=== PATIENT | female | born 1935 | race Caucasian/White ===

== ENCOUNTER → 2023-09-17 08:09 | Outpatient (REF) | payer MEDICARE, BC, SELFPAY ==
[2023-09-17 09:01] LABS: % Basophils 0.6 % (0-2); % Eosinophils 1.1 % (0-6); % Immature Granulocytes 0.3 % (0-0.5); % Lymphocytes 23.4 % (20.5-51.1); % Monocytes 10.2 % (1.7-9.3); % Neutrophils 64.4 % (42.2-75.2); Absolute Basophils 0.1 10^3/uL (0-0.2); Absolute Eosinophils 0.1 10^3/uL (0-0.7); Absolute Lymphocytes 2.5 10^3/uL (1.2-3.4); Absolute Monocytes 1.1 10^3/uL (0.1-0.6); Absolute Neutrophils 6.9 10^3/uL (1.4-6.5); Hematocrit 42.2 % (37.0-47.0); Hemoglobin 14.1 g/dL (12.0-16.0); Mean Corp Hgb Conc. 33.4 g/dL (33.0-37.0); Mean Corpuscular Hgb 33.3 pg (27.0-31.0); Mean Corpuscular Volume 99.5 fL (81.0-99.0); Mean Platelet Volume 10.5 fL (7.4-10.4); Nucleated Red Blood Cells % 0 %; Platelet Count 312 10^3/uL (130-400); Red Blood Cell Count 4.24 10^6/uL (4.20-5.40); Red Cell Dist. Width 13.1 % (11.5-14.5); White Blood Cell Count 10.7 10^3/uL (4.8-10.8)
[2023-09-17 09:20] LABS: NT-proBNP 1940 pg/ml
[2023-09-17 09:27] LABS: ALT (SGPT) 30 U/L (0-35); AST (SGOT) 40 U/L (14-36); Albumin 3.7 g/dl (3.5-5.0); Alkaline Phosphatase 48 U/L (38-126); Blood Urea Nitrogen 25 mg/dl (7-17); Calcium 9.4 mg/dl (8.4-10.2); Carbon Dioxide 33 mmol/L (22-30); Chloride 97 mmol/L (98-107); Glucose 93 mg/dl (70-99); HDL Cholesterol 50 mg/dl; LDL Cholesterol, Calculated 68 mg/dl; Potassium 4.1 mmol/L (3.5-5.1); Sodium 137 mmol/L (135-145); Total Bilirubin 0.8 mg/dl (0.2-1.3); Total Cholesterol 179 mg/dl (50-199); Total Protein 6.3 g/dl (6.3-8.2); Triglyceride 306 mg/dl (10-149); Very Low Density Lipoprotein 61 mg/dl (0-30); eGFR > 60.00
== END ==
LOC: REG 08:09
PROVIDERS: ATTENDING PHYSICIAN Internal Medicine Cardiovascular Disease; FAMILY PHYSICIAN Family Medicine
DX: I50.32 Chronic diastolic (congestive) heart failure (principal); E78.5 Hyperlipidemia, unspecified; I48.0 Paroxysmal atrial fibrillation; I10 Essential (primary) hypertension; E55.9 Vitamin D deficiency, unspecified; K51.90 Ulcerative colitis, unspecified, without complications; Z95.2 Presence of prosthetic heart valve
CPT/HCPCS: 36415; 80053; 80061; 83880; 85025

== ENCOUNTER → 2023-09-22 09:30 | Outpatient (REF) | payer MEDICARE, BC, SELFPAY ==
[2023-09-22 10:55] LABS: ALT (SGPT) 22 U/L (0-35); AST (SGOT) 33 U/L (14-36); Albumin 3.4 g/dl (3.5-5.0); Alkaline Phosphatase 42 U/L (38-126); Blood Urea Nitrogen 19 mg/dl (7-17); Calcium 9.4 mg/dl (8.4-10.2); Carbon Dioxide 34 mmol/L (22-30); Chloride 98 mmol/L (98-107); Glucose 76 mg/dl (70-99); HDL Cholesterol 53 mg/dl; LDL Cholesterol, Calculated 60 mg/dl; NT-proBNP 2140 pg/ml; Potassium 4.4 mmol/L (3.5-5.1); Sodium 139 mmol/L (135-145); Total Bilirubin 0.6 mg/dl (0.2-1.3); Total Cholesterol 169 mg/dl (50-199); Total Protein 5.8 g/dl (6.3-8.2); Triglyceride 280 mg/dl (10-149); Very Low Density Lipoprotein 56 mg/dl (0-30); eGFR 54.19
== END ==
LOC: OLABSOL 09:30
PROVIDERS: ATTENDING PHYSICIAN Internal Medicine Cardiovascular Disease
DX: I10 Essential (primary) hypertension (principal); E78.5 Hyperlipidemia, unspecified; I48.0 Paroxysmal atrial fibrillation
CPT/HCPCS: 36415; 80053; 80061; 83880

== ENCOUNTER → 2023-10-15 10:26 | Outpatient (REF) | payer MEDICARE, BC, SELFPAY ==
[2023-10-15 12:27] LABS: Blood Urea Nitrogen 22 mg/dl (7-17); Calcium 9.6 mg/dl (8.4-10.2); Carbon Dioxide 33 mmol/L (22-30); Chloride 99 mmol/L (98-107); Glucose 94 mg/dl (70-99); Potassium 5.3 mmol/L (3.5-5.1); Sodium 138 mmol/L (135-145); eGFR 54.19
[2023-10-15 12:55] LABS: NT-proBNP 2120 pg/ml
== END ==
LOC: OLABSOL 10:26
PROVIDERS: ATTENDING PHYSICIAN Internal Medicine Cardiovascular Disease
DX: I50.32 Chronic diastolic (congestive) heart failure (principal)
CPT/HCPCS: 36415; 80048; 83880

== ENCOUNTER 2023-10-30 12:50 | Emergency (ER) | payer MEDICARE, BC, SELFPAY ==
[2023-10-30 13:02] VITALS: BP 109/61
[2023-10-30 13:21] VITALS: BP 136/58
[2023-10-30 13:23] VITALS: BMI 28.1
[2023-10-30 13:53] LABS: % Basophils 0.4 % (0-2); % Eosinophils 0.7 % (0-6); % Immature Granulocytes 0.4 % (0-0.5); % Lymphocytes 11.5 % (20.5-51.1); % Monocytes 9.9 % (1.7-9.3); % Neutrophils 77.1 % (42.2-75.2); Absolute Basophils 0.1 10^3/uL (0-0.2); Absolute Eosinophils 0.1 10^3/uL (0-0.7); Absolute Immature Granulocytes 0.1 10^3/uL (0-0.05); Absolute Lymphocytes 1.6 10^3/uL (1.2-3.4); Absolute Monocytes 1.3 10^3/uL (0.1-0.6); Absolute Neutrophils 10.4 10^3/uL (1.4-6.5); Hematocrit 41.2 % (37.0-47.0); Hemoglobin 13.8 g/dL (12.0-16.0); Mean Corp Hgb Conc. 33.5 g/dL (33.0-37.0); Mean Corpuscular Hgb 33.3 pg (27.0-31.0); Mean Corpuscular Volume 99.3 fL (81.0-99.0); Mean Platelet Volume 10.1 fL (7.4-10.4); Nucleated Red Blood Cells % 0 %; Platelet Count 280 10^3/uL (130-400); Red Blood Cell Count 4.15 10^6/uL (4.20-5.40); Red Cell Dist. Width 12.7 % (11.5-14.5); White Blood Cell Count 13.5 10^3/uL (4.8-10.8)
[2023-10-30 14:00] VITALS: BP 117/64
[2023-10-30 14:06] LABS: ALT (SGPT) 20 U/L (0-35); AST (SGOT) 35 U/L (14-36); Albumin 3.7 g/dl (3.5-5.0); Alkaline Phosphatase 46 U/L (38-126); Blood Urea Nitrogen 24 mg/dl (7-17); Calcium 9.2 mg/dl (8.4-10.2); Carbon Dioxide 34 mmol/L (22-30); Chloride 95 mmol/L (98-107); Estimated Creatinine Clearance 25 ml/min; Glucose 134 mg/dl (70-99); Potassium 3.5 mmol/L (3.5-5.1); Sodium 137 mmol/L (135-145); Total Bilirubin 0.4 mg/dl (0.2-1.3); Total Protein 6.2 g/dl (6.3-8.2); eGFR 54.19
--- NOTE | 2023-10-30 14:10 | ED.GENMED ---
Addendum entered and electronically signed by Pacheco Ramsay PA-C 11/03/23 07:22:
Urine culture greater than 100,000 colony-forming units of E. coli. The results for this urine culture were faxed to the facility for their review
Original Note:
History of Present Illness
General
Chief Complaint: Weakness
Source: patient and family
Exam Limitations: none
Time Seen by Provider: 10/30/23 13:22
Nursing documentation reviewed up to this point in time: agreed with
Travel History
Have you had any contact with someone who has COVID-19?: No
Do you have any symptoms of coronavirus? Fever > 100 degrees, chills, cough, shortness of breath, sore throat, loss of taste or smell, muscle aches, or headache?: No
History of Present Illness
History of Present Illness:
88-year-old female presents with fatigue with heaviness in her head started this morning, when she woke up she is incontinent of urine at times, and a diaper at times, no fevers no nausea or vomiting, no chest pain does have a history of congestive
heart failure was admitted about a year ago in exacerbation she has been on diuretic her dose was recently increased a few weeks ago denies any dysuria or frequency, is globally weak, moving all extremities pleasant cooperative oriented x 3
Past History
Past History
ED Past Medical History: CAD, CHF, HTN, Hypercholesterolemia, Valvular disease and Other
ED Past Surgical History: Appendectomy, Cholecystectomy and Other
Social History
Tobacco: Non-smoker
Alcohol: None
Drug: None
Personal:
Living: penitentiary
Employment: Retired
Family History
Family History: Other
Review of Systems
Review of Systems
All Other Systems: Not applicable
Constitutional: Reports fatigue; Denies fever
EENT: Reports no symptoms
Respiratory: Reports no symptoms
Cardiac: Reports no symptoms
ABD/GI: Reports no symptoms
: Reports no symptoms
Musculoskeletal: Reports no symptoms
Neurological: Reports headache and weakness; Denies dizzy
Phy Exam
Physical Exam
Physical Exam:
Physical Exam
General: Pleasant elderly female
Neck: No jaundice no tongue bite
Heart: Regular
Lungs: No crackles
Abdomen: Soft nontender
Neuro: alert and oriented. Moves all extremities globally weak
Skin: no rash
Psychiatric: cooperative
Extremities: Lower extremity edema
Course
Orders/Labs/Results
Orders:
Orders
10/30/23 13:43
Complete Blood Count/With Diff Urgent
Comprehensive Metabolic Panel Urgent
NT-proBNP Urgent
10/30/23 13:47
Electrocardiogram (*1) Urgent
Reason for Study: Vertigo / Dizzy
EKG- Treatment ONCE
10/30/23 13:48
CT Head W/o Iv Contrast Urgent
Comment:
Reason For Exam: weakness headache
CR Chest - 2 Views Urgent
Comment:
Reason For Exam: weakness
10/30/23 14:14
COVID-19 Antigen Urgent
Source: Nasal Swab
10/30/23 14:15
Influenza A+B Rapid Molecular Urgent
KARINA Source: Nasal Swab
Specimen Description:
10/30/23 14:26
Straight cath- Treatment ONCE
10/30/23 14:43
Urinalysis Reflex To Culture Urgent
Date Specimen was Collected: 10/30/23
Time Specimen was Collected: 14:42
Urine Microscopic Reflex Cult Urgent
Urine Culture Urgent
KARINA Source: U
Specimen Description:
Date Specimen was Collected: 10/30/23
Time Specimen was Collected: 14:42
10/30/23 15:00
0.9% Sodium Chloride 500 ml [Nss] 500 ml IV BOLUS
Abnormal Lab Results
10/30/23 10/30/23
13:43 14:43
WBC 13.5 H 10^3/uL
(4.8-10.8)
RBC 4.15 L 10^6/uL
(4.20-5.40)
MCV 99.3 H fL
(81.0-99.0)
MCH 33.3 H pg
(27.0-31.0)
Abs Immat Gran (auto) 0.1 H 10^3/uL
(0-0.05)
Absolute Neuts (auto) 10.4 H 10^3/uL
(1.4-6.5)
Absolute Monos (auto) 1.3 H 10^3/uL
(0.1-0.6)
Neutrophils % 77.1 H %
(42.2-75.2)
Lymphocytes % 11.5 L %
(20.5-51.1)
Monocytes % 9.9 H %
(1.7-9.3)
Chloride 95 L mmol/L
(98-107)
Carbon Dioxide 34 H mmol/L
(22-30)
BUN 24 H mg/dl
(7-17)
Glucose 134 H mg/dl
(70-99)
Total Protein 6.2 L g/dl
(6.3-8.2)
Leukocyte Esterase Rfl 1+ A
(Negative)
10/30/23 13:43
10/30/23 13:43
Vital Signs
Initial and Last Documented VS:
Initial Vital Signs
Temp Pulse Resp BP Pulse Ox
97.7 F 75 18 109/61 96
10/30/23 13:02 10/30/23 13:02 10/30/23 13:02 10/30/23 13:02 10/30/23 13:02
Last Documented Vital Signs
Temp Pulse Resp BP Pulse Ox
97.7 F 75 16 117/64 92
10/30/23 13:02 10/30/23 14:16 10/30/23 14:16 10/30/23 14:00 10/30/23 14:30
*Critical Care Note
Total Time (30-74mins, 75-104mins- exclusive of procedures): Not Applicable
Update Note
Update Note:
Update labs are noted does have a white count although she is on chronic steroids, BUN up a bit, diuretic has been increased recently, urinalysis results and CAT scan grossly negative to my eye proBNP at or lower than baseline, awaiting chest x-ray,
consideration for starting some hydration
Update patient looks well reviewed with family members
ED Attending Note
-
Portions of this chart may have been created with voice recognition software.� Occasional wrong word or��sound alike� substitutions may have occurred due to the inherent limitations of voice recognition software.
Discharge Plan
Departure
Patient Disposition: Home (Routine Discharge)
Date of Disposition: 10/30/23
Time of Disposition: 15:13
Patient with high blood pressure during this ER visit?: No
Condition: Good
Discharge Problem:
Weakness
Instructions: Generalized Weakness (DC)
Prescriptions:
No Action
folic acid 1 MG tablet
1 mg PO DAILY
atorvastatin 40 MG tablet
40 mg PO HS
prednisone 5 MG tablet
5 mg PO DAILY@1600
duloxetine 60 MG capsule,delayed release(DR/EC)
60 mg PO DAILY
aspirin 81 mg Tablet,Delayed Release (Dr/Ec)
81 mg PO DAILY@1600
esomeprazole magnesium [Nexium] 40 mg Capsule,Delayed Release(Dr/Ec)
40 mg PO DAILY
senna 8.6 mg capsule
8.6 mg PO HS Qty: 10 0RF
torsemide 20 mg Tablet
70 mg PO DAILY
metoprolol succinate 50 mg Tablet Extended Release 24 Hr
50 mg PO DAILY
hydrocodone-acetaminophen 5-325 mg tablet
1 tab PO BID
hydrocodone-acetaminophen 5-325 mg Tablet
1 tab PO DAILY@1600 PRN (Reason: severe pain)
PreserVision AREDS-2 250-90-40-1 mg Capsule
1 cap PO BID
Movantik 12.5 mg Tablet
12.5 mg PO DAILY
Metamucil 28.3 % powder
1 dose PO HS
Patient Comments:
10/30/2023, one scoopful.
sulfasalazine 500 MG tablet
500 mg PO BID
Referrals:
Santana Crain DO [Family Provider] -
Alexia Medina MD [Active] - Next open appointment
Interventions
Interventions:
*Risk Screen - Suicide Last Done: 10/30/23 13:23
*General Assessment Last Done: 10/30/23 13:02
*Neglect/Abuse Screening Last Done: 10/30/23 13:23
ED- Fall Risk Assessment Last Done: 10/30/23 13:24
*ED COVID-19 Vaccine History Last Done: 10/30/23 13:02
ED- Cardiac Assessment Last Done: 10/30/23 13:32
ED- Neurological Assessment Last Done: 10/30/23 13:32
ED- Pulmonary Assessment Last Done: 10/30/23 13:32
[2023-10-30 14:26] LABS: NT-proBNP 1860 pg/ml
[2023-10-30 14:53] LABS: Urine Albumin Negative (Neg - Trace); Urine Bilirubin Negative (Negative); Urine Character Clear (Clear); Urine Color Yellow; Urine Glucose Negative (Negative); Urine Ketone Negative (Negative); Urine Leukocyte 1+ (Negative); Urine Nitrite Negative (Negative); Urine Occult Blood Negative (Negative); Urine Urobilinogen Negative (Neg - 1+)
[2023-10-30 15:08] VITALS: BP 107/76
[2023-10-30] MEDS: NSS 500 IV (15:13)
[2023-10-30 15:37] LABS: Urine Bacteria Few (Negative); Urine Squamous Cell 0-2 /LPF (Few)
[2023-10-30 15:38] LABS: COVID-19 Antigen Negative (Negative); Urine Red Blood Cell 0-2 /HPF (0-2)
[2023-10-30 16:00] VITALS: BP 113/70
[2023-10-30] MEDS: KEFLEX 500 MG PO (16:05)
== END 2023-10-30 17:08 | disposition home or self-care (01) ==
LOC: EMR 12:50
PROVIDERS: EMERGENCY PHYSICIAN Emergency Medicine; FAMILY PHYSICIAN Family Medicine
DX: R53.1 Weakness (principal)
CPT/HCPCS: 99285; 96360; 70450; 71046; 80053; 81003; 81015; 83880; 85025; 87071; 87086; 87186; 87502; 87811; 93005

== ENCOUNTER → 2023-11-03 11:02 | Outpatient (REF) | payer MEDICARE, BC, SELFPAY ==
[2023-11-03 11:55] LABS: Blood Urea Nitrogen 17 mg/dl (7-17); Calcium 8.9 mg/dl (8.4-10.2); Carbon Dioxide 33 mmol/L (22-30); Chloride 101 mmol/L (98-107); Glucose 85 mg/dl (70-99); Potassium 3.9 mmol/L (3.5-5.1); Sodium 137 mmol/L (135-145); eGFR > 60.00
[2023-11-03 12:00] LABS: NT-proBNP 2500 pg/ml
== END ==
LOC: OLABSOL 11:02
PROVIDERS: ATTENDING PHYSICIAN Internal Medicine Cardiovascular Disease
DX: I50.32 Chronic diastolic (congestive) heart failure (principal); I10 Essential (primary) hypertension
CPT/HCPCS: 36415; 80048; 83880

== ENCOUNTER 2023-11-23 23:42 | Inpatient (IN) | payer MEDICARE, BC, SELFPAY ==
[2023-11-23 21:17] VITALS: BP 138/78
[2023-11-23 21:35] LABS: % Basophils 0.5 % (0-2); % Eosinophils 2.2 % (0-6); % Immature Granulocytes 0.2 % (0-0.5); % Lymphocytes 21.3 % (20.5-51.1); % Monocytes 10.9 % (1.7-9.3); % Neutrophils 64.9 % (42.2-75.2); Absolute Basophils 0.1 10^3/uL (0-0.2); Absolute Eosinophils 0.2 10^3/uL (0-0.7); Absolute Lymphocytes 2.2 10^3/uL (1.2-3.4); Absolute Monocytes 1.1 10^3/uL (0.1-0.6); Absolute Neutrophils 6.6 10^3/uL (1.4-6.5); Hematocrit 38.4 % (37.0-47.0); Hemoglobin 13.4 g/dL (12.0-16.0); Mean Corp Hgb Conc. 34.9 g/dL (33.0-37.0); Mean Corpuscular Volume 94.6 fL (81.0-99.0); Mean Platelet Volume 9.7 fL (7.4-10.4); Nucleated Red Blood Cells % 0 %; Platelet Count 341 10^3/uL (130-400); Red Blood Cell Count 4.06 10^6/uL (4.20-5.40); Red Cell Dist. Width 12.7 % (11.5-14.5); White Blood Cell Count 10.1 10^3/uL (4.8-10.8)
[2023-11-23 21:58] LABS: ALT (SGPT) 50 U/L (0-35); AST (SGOT) 54 U/L (14-36); Albumin 4.2 g/dl (3.5-5.0); Alkaline Phosphatase 77 U/L (38-126); Blood Urea Nitrogen 29 mg/dl (7-17); Calcium 10.6 mg/dl (8.4-10.2); Carbon Dioxide 30 mmol/L (22-30); Chloride 95 mmol/L (98-107); Glucose 131 mg/dl (70-99); Potassium 4.2 mmol/L (3.5-5.1); Sodium 135 mmol/L (135-145); Total Bilirubin 0.5 mg/dl (0.2-1.3); Total Protein 6.8 g/dl (6.3-8.2); eGFR 39.55
[2023-11-23 22:02] LABS: NT-proBNP 8050 pg/ml; Troponin I 0.052 ng/ml
--- NOTE | 2023-11-23 22:36 | ED.GENMED ---
History of Present Illness
General
Chief Complaint: Breathing Problem
Source: family
Time Seen by Provider: 11/23/23 22:16
Travel History
Have you had any contact with someone who has COVID-19?: No
Do you have any symptoms of coronavirus? Fever > 100 degrees, chills, cough, shortness of breath, sore throat, loss of taste or smell, muscle aches, or headache?: Yes
Symptoms:: shortness of breath
History of Present Illness
History of Present Illness:
Increased shortness of breath over the last 2 to 3 days. Torsemide dose has been increased. Some weight gain per family. Patient has no other specific complaints. Was hypoxic at the facility this evening.
Past History
Past History
ED Past Medical History: CAD, CHF, HTN, Hypercholesterolemia, Valvular disease and Other
ED Past Surgical History: Appendectomy, Cholecystectomy and Other
Social History
Tobacco: Non-smoker
Alcohol: None
Drug: None
Personal:
Living: skilled nursing
Employment: Retired
Family History
Family History: Other
Review of Systems
Review of Systems
All Other Systems: Not applicable
Constitutional: Reports weight gain; Denies fever
Respiratory: Reports trouble breathing
Cardiac: Denies chest pain or syncope
Phy Exam
Physical Exam
Physical Exam:
GENERAL: Alert and oriented in no apparent distress. Somewhat clear small leg breathing at times. Will get hypoxic down to the mid 80s
EYE: Orbits normal.
NECK: Supple, no significant adenopathy.
ENT: Pharynx without erythema
CARDIAC: Irregular irregular. Tachycardic. At times harsh midsystolic murmur
LUNGS: Slight bariatric coordinator small breathing at times. Some crackles in the bases
ABDOMEN: Soft, without focal tenderness or distention
NEUROLOGICAL: Alert and oriented , grossly non-focal
SKIN: Warm and dry, no rash or lesion, no discoloration, skin intact.
MUSCULOSKELETAL: Moderate bilateral lower extremity edema
PSYCH: Normal and appropriate interaction.
Scores
Heart Failure Risk
Heart Failure Risk Score: Yes
History of Stroke or TIA: No
History of intubation for respiratory distress: No
Heart rate on ED arrival >/= 110: Yes
SaO2 <90% on arrival on room air: Yes
HR >/=110 during 3min walk test (or too ill to perform test): Yes
ECG has acute ischemic changes: No
Urea >/=12mmol/L (BUN 33.6mg/dL): No
Serum CO2>/=35mmol/L: No
Troponin I or T elevated to [place] Level (0.4mg/dL): No
NT-proBNP >/=5,000ng/L (5,000pg/ml): Yes
HF Risk Score: 4
Admission Status: HIGH RISK 26.1% Consider SNF treatment or admission to hospital
Course
Orders/Labs/Results
Orders:
Orders
11/23/23 21:21
Electrocardiogram (*1) Urgent
Reason for Study: Other
Other Reason for Exam: Respiratory Distress
Cardiac Monitoring- Treatment ONCE
EKG- Treatment ONCE
IV Insert/Care/Rem.- Treatment PRN
CR Chest - 2 Views Urgent
Comment:
Reason For Exam: respiratory distress
11/23/23 21:28
Complete Blood Count/With Diff Urgent
Comprehensive Metabolic Panel Urgent
11/23/23 21:29
NT-proBNP Urgent
Troponin I Urgent
11/23/23 22:32
Furosemide [Lasix] 40 mg IV NOW STA
11/23/23 22:55
Admit/Transfer Patient As Directed
Co-Sign Provider:
Level of Care: Inpatient admission
Assign to:: Telemetry
Physician / Group: Georgi
Diagnosis: CHF
Reason for Telemetry: Arrhythmia
Date to Stop Telemetry: 11/26/23
Time to Stop Telemetry: 11:00
Reason for Hospitalization: IV diuretic
Expected length of stay greater than two midnights?: Yes
ELOS- Estimated Length of Stay in days: 3
I certify the patient meets the requirements for IP care: Yes
11/23/23 23:07
Code Status As Directed
Resuscitation Status: Do not resuscitate
Reached after discussion with pt or family/Healthcare POA: Yes
11/23/23 23:08
DNR Bracelet Application ONCE
11/24/23 01:53
Heparin 5,000 units SC Q8
11/24/23 01:53
Echo 2D MMode Color/Doppler Routine
Reason for Study: heart failure
CARDIOLOGY CONSULT Routine
Consulting Provider: Santana Medina
Was physician already notified: No
Reason for consult: CHF, A-fib
Consult Notification Routine
Specialty to Notify: Cardiology
HF DIETARY CONSULT Routine
HF EDUCATOR CONSULT Routine
Comment:
Activity As Directed
Activity Level: Out of Bed-Early Mobility
Bladder Scan As Directed
Follow Bladder Retention/Intermittent Cath Algorithm?: Yes
PRN if no void in __ hours: 6
Frequency: Per Retention Algorithm
If Bladder Scan Result >: 400
then:: Straight cath
Intake/ Output As Directed
Frequency: Per unit guidelines
Patient Education As Directed
Type: CHF folder
Comment: give on admission. Document in Interdisciplinary Education record
Sleep Apnea Assessment by RN As Directed
Comment:
Physician Instructions:
Straight Cath As Directed
Frequency: Per Retention Algorithm
Additional Instructions: straight cath as needed per acute urinary retention algorithm for 24 hrs
Additional Instructions: for bladder scan greater than 400 mL
Vital Signs As Directed
Frequency: Other
Additional Instructions:: Q12 or per unit guidelines if more frequent.
Weight As Directed
Frequency: Daily
Type of Scale: Standing Scale
Comment: Daily morning weight. If unable to stand, use balanced bed scale.
Weight As Directed
Frequency: Once
Type of Scale: Standing Scale
Comment: Upon Admission. If unable to stand, use balanced bed scale.
O2 Therapy [RESP] Routine
Titrate/Wean O2 to maintain O2 sat greater than (%): 90
Pulse Ox/cont/shift [RESP] Routine
Quantity: 1
Special Instructions: Daily pulse oximetry at rest. If greater than 92% at rest also obtain pulse oximetry
while ambulating as tolerated.
Ot Eval And Treat Routine
Pt Eval And Treat Routine
Activity Level: Out of Bed-Early Mobility
DX Deep Vein Thrombosis Video Routine
11/24/23 03:30
Troponin I Q6H
Comment: at admission & every 6 hours x 2 (3 total), ECG to be done with each level
11/24/23 06:00
Basic Metabolic Panel IN AM
Cardiovascular Evaluation IN AM
Complete Blood Count/No Diff IN AM
Magnesium IN AM
11/24/23 08:00
Duloxetine Delayed Release [Cymbalta Delayed Release] 60 mg PO DAILY
FOLic ACID [Folvite] 1 mg PO DAILY
Furosemide [Lasix] 60 mg IV BID AT 0800,1600
Hydrocodone 5/APAP 325 [[place] 5/325] 1 tablet PO BID
Metoprolol Xl [Toprol Xl] 50 mg PO DAILY
Sulfasalazine [Azulfidine] 500 mg PO BID
Vit C/Vit E/Lutein/Min/[place]-3 [Ocuvite Softgel] 1 cap PO BID
esomeprazole magnesium [Nexium] 40 mg PO DAILY
naloxegol [Movantik] 12.5 mg PO DAILY
11/24/23 09:30
Troponin I Q6H
Comment: at admission & every 6 hours x 2 (3 total), ECG to be done with each level
11/24/23 16:00
Aspirin Low Dose EC [Aspir Low (Enteric Coated)] 81 mg PO DAILY@1600
Prednisone [Deltasone] 5 mg PO DAILY@1600
11/24/23 22:00
Atorvastatin [Lipitor] 40 mg PO HS
Metamucil 1 dose PO HS
Sennosides [Senokot] 8.6 mg PO HS
11/25/23 06:00
Basic Metabolic Panel IN AM
11/26/23 06:00
Basic Metabolic Panel IN AM
11/26/23 11:00
DC Protocol for Telemetry ONCE
Abnormal Lab Results
11/23/23 11/23/23
21:28 21:29
RBC 4.06 L 10^6/uL
(4.20-5.40)
MCH 33.0 H pg
(27.0-31.0)
Absolute Neuts (auto) 6.6 H 10^3/uL
(1.4-6.5)
Absolute Monos (auto) 1.1 H 10^3/uL
(0.1-0.6)
Monocytes % 10.9 H %
(1.7-9.3)
Chloride 95 L mmol/L
(98-107)
BUN 29 H mg/dl
(7-17)
Creatinine 1.3 H mg/dL
(0.6-1.0)
Glucose 131 H mg/dl
(70-99)
Calcium 10.6 H mg/dl
(8.4-10.2)
AST 54 H U/L
(14-36)
ALT 50 H U/L
(0-35)
Troponin I 0.052 H* ng/ml
11/23/23 21:28
11/23/23 21:28
Vital Signs
Initial and Last Documented VS:
Initial Vital Signs
Temp Pulse Resp BP Pulse Ox
98.2 F 116 28 138/78 99
11/23/23 21:17 11/23/23 21:17 11/23/23 21:17 11/23/23 21:17 11/23/23 21:17
Last Documented Vital Signs
Temp Pulse Resp BP Pulse Ox
98.2 F 109 22 112/79 93
11/23/23 21:17 11/24/23 01:00 11/24/23 01:00 11/24/23 01:00 11/24/23 02:08
*EKG
Interpreted by ED Provider?: Yes
Interpretation: abnormal
Comparison EKG: changes noted
Heart Rate: 105
Rate: tachycardiac
Rhythm: a-fib
[place]: normal axis
Interval: normal interval
QRS Pattern: right bundle branch block
Ischemia: non-specific ST changes
*Assisted Living Home Director Interpretation
Rate: tachycardiac
Interpretation: abnormal
Heart Rate: 104
Rhythm: a-fib
*Critical Care Note
Total Time (30-74mins, 75-104mins- exclusive of procedures): Not Applicable
Data Reviewed
Review of Other/Old Records Reveals: Labs, Records, Radiology Studies, Testing and Discharge Summary
Update Note
Update Note:
Progressive shortness of breath, elevated proBNP above baseline. 3 kg weight gain in the last month. Increased edema. All consistent with some mild CHF complications of atrial fibrillation with mild RVR. Heart rate is in the very low 100s. For
now we will not add rate control although if heart rate elevates consistently may need to start Cardizem.
ED Attending Note
-
Portions of this chart may have been created with voice recognition software.� Occasional wrong word or��sound alike� substitutions may have occurred due to the inherent limitations of voice recognition software.
Discharge Plan
Departure
Patient Disposition: Admit
Date of Disposition: 11/23/23
Time of Disposition: 22:39
Presentation/result/management discussed w/ accepting MD/DO: Hospitalist
Discharge Problem:
CHF, Atrial fibrillation/mild RVR, Renal insufficiency
Interventions
Interventions:
*Risk Screen - Suicide Last Done: 11/24/23 01:45
*General Assessment Last Done: 11/23/23 21:17
*Neglect/Abuse Screening Last Done: 11/23/23 23:07
ED- Fall Risk Assessment Last Done: 11/23/23 22:47
*ED COVID-19 Vaccine History Last Done: 11/24/23 01:45
*Nursing Disposition Last Done: 11/24/23 01:29
ED- Cardiac Assessment Last Done: 11/23/23 22:47
ED- Pulmonary Assessment Last Done: 11/23/23 22:47
Discharge Date and Time
Discharge Date/Time: 11/24/23 01:29
[2023-11-23] MEDS: LASIX 40 MG IV (22:56)
[2023-11-23 23:00] VITALS: BP 117/78
--- NOTE | 2023-11-23 23:14 | HPS.HSE ---
Family Physician
-
Family Physician: Santana Crain
Chief Complaint
-
Shortness of Breath
History of Present Illness
Patient is an 88 y/o female past medical history of CAD, CHF, A-Fib and UC who presents with increase shortness of breath. Additional history is obtained from family at the bedside. On Wednesday patient's daughter noted that the patient appeared more
short of breath than usual. Patient is usually maintained on torsemide 60mg which was increased to 70mg for the past two days. Despite the increase patient continued with shortness of breath and was noted to be hypoxic at the assisted living
facility prompting her to be brought to the emergency department via EMS. Family reports some recent weight gain.
Medical History
Past Medical History
Past Medical History: Reports Other
Additional Past Medical History:
Coronary Artery Disease s/p CABG
Chronic HFpEF
Paroxysmal Atrial Fibrillation
Essential Hypertension
Hyperlipidemia
Aortic Stenosis s/p Bioprosthetic Aortic Valve Replacement
Osteoporosis
Ulcerative Colitis
Spinal Stenosis
Hx PE in 2017, provoked following AVR
Past Surgical History: Reports Other
Additional Past Surgical History:
Coronary Artery Bypass Graft
Bioprosthetic Aortic Valve Replacement
Appendectomy
Cholecystectomy
Colon Resection
Social History
Tobacco: Non-smoker
Alcohol: None
Living: Assisted Living
Family History
Family History: Not pertinent
Allergies / Home Medications
Allergies reflects when Allergies were last updated in [employer].
Home Medications with original date entered in [employer]
Allergy/Medication List:
Allergies
Allergy/AdvReac Type Severity Reaction Status Date / Time
adhesive tape Allergy Unknown Verified 11/23/23 21:16
Home Medications
folic acid 1 mg tablet 1 mg PO DAILY Supplement 11/26/16
atorvastatin 40 mg tablet 40 mg PO HS High cholesterol 12/09/16
duloxetine 60 mg capsule,delayed release 60 mg PO DAILY Mental Health/Anxiety 12/09/16
prednisone 5 mg tablet 5 mg PO DAILY@1600 inflammation 12/09/16
aspirin 81 mg tablet,delayed release 81 mg PO DAILY@1600 Blood clot prevention/tx 06/22/22
esomeprazole magnesium 40 mg capsule,delayed release (Nexium) 40 mg PO DAILY Gastrointestinal issue 06/22/22
sennosides 8.6 mg capsule (senna) 8.6 mg PO HS constipation #10 caps 06/25/22
Metamucil 1 dose PO HS 10/30/23
hydrocodone 5 mg-acetaminophen 325 mg tablet 1 tab PO BID 10/30/23
hydrocodone 5 mg-acetaminophen 325 mg tablet 1 tab PO DAILY@1600 PRN severe pain 10/30/23
metoprolol succinate 50 mg tablet,extended release 24 hr 50 mg PO DAILY 10/30/23
naloxegol 12.5 mg tablet (Movantik) 12.5 mg PO DAILY 10/30/23
sulfasalazine 500 mg tablet 500 mg PO BID Gastrointestinal issue 10/30/23
torsemide 20 mg tablet 70 mg PO DAILY 10/30/23
vit C 250 mg-vit E 90 mg-zinc 40 mg-copper 1 [id number] capsule (PreserVision AREDS-2) 1 cap PO BID 10/30/23
Review of Systems
-
A 12 point ROS was completed and negative except as noted: Yes
Constitutional: Denies Fever or Chills
Respiratory: Reports Trouble Breathing; Denies Cough
Cardiac: Denies Chest Pain or Palpitations
Physical Exam
Vital Signs
Vital Signs
Temp Pulse Resp BP Pulse Ox
98.2 F 103 18 117/78 96
11/23/23 21:17 11/23/23 23:00 11/23/23 23:00 11/23/23 23:00 11/23/23 23:00
Physical Exam
General: Comfortable and Conversant
HEENT: NormoCephalic, Anicteric, Atraumatic and Oxygen (Nasal Cannula)
Respiratory: Rales (bilateral) and Non Labored Respirations
Cardiac: S1/S2, Irregular Rhythm, Tachycardia (Slightly) and JVD
GI: Soft and Non Tender
Rectal: Deferred by Provider
Musculoskeletal: No Clubbing, No Cyanosis and Other (Non-pitting edema bilateral lower ext - Tubigrips in place)
Skin: Warm and Dry
Neuro: Awake and Alert
Psych: Calm
Laboratory Results
-
11/23/23 21:28
11/23/23 21:28
Laboratory Results
Total Bilirubin 0.5 mg/dl (0.2-1.3) 11/23/23 21:28
AST 54 U/L (14-36) H 11/23/23 21:28
ALT 50 U/L (0-35) H 11/23/23 21:28
Alkaline Phosphatase 77 U/L (38-126) 11/23/23 21:28
Troponin I 0.052 ng/ml H* 11/23/23 21:29
Data Reviewed
-
Lab Data: Labs Reviewed by me
Impression/Plan
-
Acute Hypoxic Respiratory Insufficiency secondary Acute on Chronic HFpEF
-Consult Cardiology
-Check Echo
-Continue Lasix 60mg IV BID
-Monitor Is&Os and Daily Weight
Elevated Troponin, suspect Non-Ishcemic Myocardial Injury due to acute heart failure
-Continue to trend troponin
Acute Kidney Injury likely secondary to Cardiorenal
-Monitor creatinine closely
-Check bladder scans
Paroxysmal Atrial Fibrillation, rate with only fair control
-Continue metoprolol
Coronary Artery Disease s/p CABG
-Continue aspirin
Hyperlipidemia
-Continue atorvastatin
Ulcerative Colitis
-Continue prednisone and sulfasalazine
Chronic Constipation
-Continue Senna and Metamucil
Spinal Stenosis
-Continue Cymbalta and Hydrocodone
GERD
-Continue Protonix
Hx Aortic Stenosis s/p Bioprosthetic Aortic Valve Replacement
Hx Pulmonary Embolism, provoked following AVR
DVT proph: SC Heparin
Code Status: DNR
--- NOTE | 2023-11-23 23:52 | W.PN.UPDATE ---
Update Note
Progress Note Update
Patient seen and examined independently. Agree with findings and plan as set forth in today's H&P by Anabella Judd PA-C.
Patient is an 88y F with PMH significant for CHF, A-Fib, hypertension and A-Fib who presents to ED complaining of shortness of breath. Patient has appeared more SOB / increased work of breathing for the past 4-5 days. Patient has been on
torsemide 60mg daily - but this was increased to 70mg daily for the past 2 days (patient was previously on 70mg daily as her 'usual' dose). Patient continued to have evident dyspnea despite the increase in diuretics and presented to the ED for
further evaluation and treatment. Evaluation in the ED is consistent with CHF exacerbation.
Ass:
Acute on Chronic HFpEF
Acute Hypoxemic Respiratory Insufficiency secondary to the above
Non-[place] Troponin Elevation
[place] likely secondary to above
Paroxysmal Atrial Fibrillation
Aortic Stenosis s/p BioAVR
ASCVD
Ulcerative Colitis
GERD
History of PE
Plan:
Admit for further evaluation and treatment.
IV Lasix BID for now and monitor for adequate diuresis / clinical response.
Continue supportive care including supplemental O2 as needed.
Cardiology evaluation for additional recommendations.
Update Echo.
Continue to trend troponin to peak - suspect this is non-ischemic in nature.
Follow for changes in renal function with diuresis.
Continue other usual medications for UC, GERD, etc.
[2023-11-24] VITALS (16 sets, daily range): BP systolic 99–136; BP diastolic 61–96; PULSE 104–110; O2SAT 90–96; BMI 27.7; BMI 27.6
--- NOTE | 2023-11-24 02:20 | PTCARENOTE ---
Received pt from ED via stretcher. Pt on 2L NC with pulse ox at 95%; lungs are diminished with an audible exp wheeze. Daughter Anabella at bedside. Pt has b/l hearing aids with her. AFib on the monitor with occ PVCs; HR 90s-120s. Pt offers no
complaints at this time. Resting in bed with call mann in reach.
[2023-11-24] MEDS: HEPARIN 5000 UNITS SC ×4 (03:53→23:15)
[2023-11-24 04:14] LABS: Hematocrit 39.5 % (37.0-47.0); Hemoglobin 13.2 g/dL (12.0-16.0); Mean Corp Hgb Conc. 33.4 g/dL (33.0-37.0); Mean Corpuscular Hgb 32.9 pg (27.0-31.0); Mean Corpuscular Volume 98.5 fL (81.0-99.0); Mean Platelet Volume 9.8 fL (7.4-10.4); Platelet Count 305 10^3/uL (130-400); Red Blood Cell Count 4.01 10^6/uL (4.20-5.40); Red Cell Dist. Width 12.6 % (11.5-14.5); White Blood Cell Count 9.2 10^3/uL (4.8-10.8)
[2023-11-24 04:42] LABS: Blood Urea Nitrogen 29 mg/dl (7-17); Calcium 10.3 mg/dl (8.4-10.2); Carbon Dioxide 30 mmol/L (22-30); Chloride 97 mmol/L (98-107); Estimated Creatinine Clearance 20 ml/min; Glucose 109 mg/dl (70-99); HDL Cholesterol 57 mg/dl; LDL Cholesterol, Calculated 49 mg/dl; Potassium 3.9 mmol/L (3.5-5.1); Sodium 136 mmol/L (135-145); Total Cholesterol 138 mg/dl (50-199); Triglyceride 160 mg/dl (10-149); Very Low Density Lipoprotein 32 mg/dl (0-30); eGFR 43.54
[2023-11-24 04:47] LABS: Troponin I 0.041 ng/ml
--- NOTE | 2023-11-24 07:19 | CON.CAR ---
Addendum entered and electronically signed by Jone Barraza MD 11/24/23 12:57:
I saw and examined the patient.
The [employer] Control Room Operator's note was reviewed and I agree with the note.
Comment:
GEN: No distress, awake, Ox3
HEENT: supple, anicteric, mmm
LUNGS: dec BS at bases
CV: irreg, S1/S2, / syst LSB, S3+
ABD: soft, BS+, NT/ND
EXT: + edema
NEURO: Gross non-focal
SKIN: No rash
Plan:
She presents with progressive shortness of breath, wt gain and acute heart failure with preserved ejection fraction status post AVR/CABG in 2017. She also presents with atrial fibrillation with modestly elevated rates. She was not on
anticoagulation prior to this hospitalization. Her torsemide was increased as an outpatient with no improvement.
Agree with plans for diuresis. Continue Lasix 60 mg IV twice daily.
Will repeat echocardiogram.
Would start with a rate control strategy for A-fib for now. Increase Toprol to 50 mg in a.m. and 25 mg in p.m. Will discuss with family possible anticoagulation with Eliquis 2.5 mg p.o. twice daily. For now continue aspirin. Continue telemetry.
Abnormal troponin is likely nonischemic myocardial injury.
Original Note:
Consultation
Consultation Request
Date/Time Consultation Requested: 11/24/23 at 0153
Date/Time Consultation Performed: 11/24/23 at 0721
Requesting Provider: Dr. Laureano
Performing Provider: Dr. Barraza
Reason for Consultation: Acute HF
Medical History
-
History of Present Illness:
Patient came to [facility] yesterday with increased SOB and was admitted with acute HF, cardiology is now consulted. Patient lives at [facility]. Patient had labs 09/17/23 and pro-BNP was up so torsemide increased from 60 mg daily to 70 mg daily. Then patient
was in [facility] 10/30/23 for heaviness in her head, CT head was normal and a 500 ml IVF bolus was given for an elevated BUN and she was then discharged. Later her urine culture was positive for E coli and she completed an outpatient course of
antibiotics. Patient's daughter then called the [facility] office on 11/19/23 to report a 3 lbs weight gain in 3 days so patient was advised to increase torsemide back to previous dose of 70 mg daily, but diuresis was minimal and patient started with
orthopnea and SALVADOR so patient advised to increase torsemide again to 80 mg daily, but no improvement so she came to [facility] yesterday. ECG in ER shows patient is in Afib with a h/o known paroxysmal Afib. Patient was in SR at last ER visit 10/30/23.
Patient says that she feels better since admission. She is laying flat in bed without orthopnea now although still wearing oxygen at 2 L NC. Initial Troponin was 0.052 and trending down thereafter, but no chest pain.
PMH:
Chronic HFpEF
CAD
s/p CABG x2 PINEDA to LAD, SVG to OM 11/27/16
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
h/o right sided pleural effusion and s/p thoracentesis for 450 ml 06/23/22
Hypertension
Hypercholesterolemia
Chronic lower extremity edema with venous stasis wounds/ulcers followed by wound care
Paroxysmal atrial fibrillation
h/o PE with minimal clot burden (2 small filling defects of the subsegmental vessel supplying the lingula) 12/09/16
Arthritis
Anemia
Linq monitor
h/o Colon resection 2011
Cataract extraction
Past Medical History
Past Medical History: Other (in HPI)
Past Surgical History: Appendectomy, Cardiac (Aortic valve replacement and CABG x2 01/12/2017, Linq monitor placement 07/2017), Cholecystectomy and Other (Colon resection with colostomy September 2011, cataract extraction 2016, excision of left
olecranon bursa and debridement 03/2019)
Social History
Tobacco: Non-Smoker
Alcohol: None
Drug: None
Living: Assisted Living (at [facility])
Family History
Family History: Early CAD (father [place] at age 35), CAD and Cancer
Allergies / Home Medications
Allergy/AdvReac Type Severity Reaction Status Date / Time
adhesive tape Allergy Unknown Verified 11/23/23 21:16
�Medication �Instructions �Recorded �Confirmed �Type
folic acid 1 mg tablet 1 mg PO DAILY Supplement 11/26/16 11/23/23 History
atorvastatin 40 mg tablet 40 mg PO HS High cholesterol 12/09/16 11/23/23 History
duloxetine 60 mg capsule,delayed 60 mg PO DAILY Mental 12/09/16 11/23/23 History
release Health/Anxiety
prednisone 5 mg tablet 5 mg PO DAILY@1600 inflammation 12/09/16 11/23/23 History
aspirin 81 mg tablet,delayed 81 mg PO DAILY@1600 Blood clot 06/22/22 11/23/23 History
release prevention/tx
esomeprazole magnesium 40 mg 40 mg PO DAILY Gastrointestinal 06/22/22 11/23/23 History
capsule,delayed release (Nexium) issue
sennosides 8.6 mg capsule (senna) 8.6 mg PO HS constipation #10 caps 06/25/22 11/23/23 Rx
Metamucil 1 dose PO HS 10/30/23 11/23/23 History
hydrocodone 5 mg-acetaminophen 325 1 tab PO BID 10/30/23 11/23/23 History
mg tablet
hydrocodone 5 mg-acetaminophen 325 1 tab PO DAILY@1600 PRN severe pain 10/30/23 11/23/23 History
mg tablet
metoprolol succinate 50 mg 50 mg PO DAILY 10/30/23 11/23/23 History
tablet,extended release 24 hr
naloxegol 12.5 mg tablet (Movantik) 12.5 mg PO DAILY 10/30/23 11/23/23 History
sulfasalazine 500 mg tablet 500 mg PO BID Gastrointestinal 10/30/23 11/23/23 History
issue
torsemide 20 mg tablet 70 mg PO DAILY 10/30/23 11/23/23 History
vit C 250 mg-vit E 90 mg-zinc 40 1 cap PO BID 10/30/23 11/23/23 History
mg-copper 1 [id number]
capsule (PreserVision AREDS-2)
Review of Systems
-
History Source: Patient
All other systems: Negative unless noted
Physical Exam
Vital Signs
Temp Pulse Resp BP Pulse Ox
98.2 F 100 22 103/61 96
11/23/23 21:17 11/24/23 06:00 11/24/23 06:00 11/24/23 06:00 11/24/23 06:00
Lab Results
11/24/23 03:58
11/24/23 03:58
Troponin I 0.041 ng/ml H* 11/24/23 03:58
Mxs-Y-Asyvakimsyy Pept 8050 pg/ml 11/23/23 21:29
Impression / Plan
-
PCP: Santana Crain
Allergy And Immunology Specialist: Dr. Alexia Medina
Impression:
Acute hypoxic respiratory insufficiency
Acute on chronic HFpEF
MARIANA
CAD
s/p CABG x2 PINEDA to LAD, SVG to OM 11/27/16
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
h/o right sided pleural effusion and s/p thoracentesis for 450 ml 06/23/22
Hypertension
Hypercholesterolemia
Chronic lower extremity edema with venous stasis wounds/ulcers followed by wound care
Paroxysmal atrial fibrillation
h/o PE with minimal clot burden (2 small filling defects of the subsegmental vessel supplying the lingula) 12/09/16
Arthritis
Anemia
Linq monitor
h/o Colon resection 2011
Cataract extraction
Lexiscan nuclear stress test 02/23/2019: Moderate fixed defect in the basal, anterior lateral and mid anterior lateral segment consistent with prior infarction, EF 68% no ischemia
Echo 05/19/2022: EF 60 to 65%.� Mild LVH.� Moderate MR.� Bioprosthetic aortic valve peak/mean gradient 16/7 mmHg.� Moderate TR, PAP 45 to 47 mmHg
Echo 11/24/23: Study pending
Plan:
-Pateint came to [facility] yesterday with increased SOB and was admitted with acute HF, cardiology is now consulted. Patient lives at [facility]. Patient had labs 09/17/23 and pro-BNP was up so torsemide increased from 60 mg daily to 70 mg daily. Then patient
was in [facility] 10/30/23 for heaviness in her head, CT head was normal and a 500 ml IVF bolus was given for an elevated BUN and she was then discharged. Later her urine culture was positive for E coli and she completed an outpatient course of
antibiotics. Patient's daughter then called the [facility] office on 11/19/23 to report a 3 lbs weight gain in 3 days so patient was advised to increase torsemide back to previous dose of 70 mg daily, but diuresis was minimal and patient started with
orthopnea and SALVADOR so patient advised to increase torsemide again to 80 mg daily, but no improvement so she came to [facility] yesterday. ECG in ER shows patient is in Afib with a h/o known paroxysmal Afib. Patient was in SR at last ER visit 10/30/23.
Patient says that she feels better since admission. She is laying flat in bed without orthopnea now although still wearing oxygen at 2 L NC. Initial Troponin was 0.052 and trending down thereafter, but no chest pain.
-Called and talked with patient's daughter, Anabella who of note is the of ER physician Dr. Hong, for 23 minutes this AM. Reviewed hospital course thus far including acute HF and recurrence of Afib.
-Patient with Afib in RVR in admission 11/23/23. ECG from ER visit 10/30/23 the patient was in SR as reviewed by me. No palpitations. This is the first documented recurrence of Afib since CABG in 2017. Talked about options of rate control vs rhythm
control. Reviewed that rhythm control option would mean starting OAC and then AMINA and CV. Patient's daughter reports that patient has not fallen in months. Reviewed that overall frailty at age 88 would carry an increased bleeding risk. Patient's
daughter to discuss with her 3 siblings, but for now the plan is rate control.
-Increase Toprol XL from 50 mg daily to 50 mg AM and 25 mg PM daily as BP tolerates.
-Weight is down overnight, but scales are not correct. Dry weight is about 112 lbs and patient weighs 114 lbs today.
-Cont Lasix 60 mg IV BID. Patient was taking torsemide 70 mg PO daily most of the time prior to recent admission except for decreased to 60 mg daily 10/30/23 for elevated BUN.
-Check echo
-Cre improving with diuresis
-Troponin was 0.052 on admission and trended down thereafter. Will manage as a nonischemic myocardial injury Troponin elevation
-Patient is s/p CABG x 2 PINEDA to LAD, SVG to OM 11/27/16
[2023-11-24] MEDS: PROTONIX 40 MG PO (07:26)
[2023-11-24] MEDS: OCUVITE SOFTGEL 1 CAP PO ×2 (07:26→20:37)
[2023-11-24] MEDS: CYMBALTA DELAYED RELEASE 60 MG PO (07:26)
[2023-11-24] MEDS: FOLVITE 1 MG PO (07:26)
[2023-11-24] MEDS: TOPROL XL 50 MG PO (07:27)
[2023-11-24] MEDS: AZULFIDINE 500 MG PO ×2 (07:27→20:37)
[2023-11-24] MEDS: NORCO 5/325 1 TABLET PO ×2 (07:27→20:37)
[2023-11-24] MEDS: LASIX 60 MG IV ×2 (07:27→16:37)
[2023-11-24 11:09] LABS: Troponin I 0.045 ng/ml
--- NOTE | 2023-11-24 13:47 | W.PN.HOSP.TC ---
Today's Communication/Plan
-
Continue diuresis
Rate control for the A-Fib
Assessment / Plan
Assessment / Plan
Physical Exam
General: Comfortable and Conversant
HEENT: Normocephalic
Respiratory: Decreased breath sounds bilaterally
Cardiac: S1/S2, Irregular Rhythm, Tachycardia, Murmur
GI: Soft and Non Tender. Positive bowel sounds.
Musculoskeletal: No Cyanosis. Pitting edema in the lower extremities bilaterally.
Skin: Warm and Dry
Neuro: Awake and Alert
Psych: Calm
Assessment/Plan
Acute Hypoxic Respiratory Insufficiency secondary Acute on Chronic HFpEF
Presentation with worsening shortness of breath
-Cardiology consulted, recommendations appreciated
-Echocardiogram
-Patient's Torsemide was increased outpatient with no resulting improvement
-Continue Lasix 60mg IV BID
-Monitor Is&Os and Daily Weight
Elevated Troponin, suspect Non-Ishcemic Myocardial Injury due to acute heart failure
-Continue to trend troponin
Acute Kidney Injury likely secondary to Cardiorenal
-Monitor creatinine closely
-Check bladder scans
A-Fib RVR
Paroxysmal Atrial Fibrillation, rate with only fair control
-Continue metoprolol --> but increase to 50 mg in a.m. and 25 mg in p.m.
-Was not on anticoagulation prior to arrival
-Patient's daughter Denisse, on November 24, 2023 mentioned that patient tends to bruise easily
-Continue Aspirin, cardiology will consider anticoagulation with shared-decision making with patient's family
Coronary Artery Disease s/p CABG - status post AVR/CABG in 2017
-Continue aspirin
Hyperlipidemia
-Continue atorvastatin
Ulcerative Colitis
-Continue prednisone and sulfasalazine
Chronic Constipation
-Continue Senna and Metamucil
Spinal Stenosis
-Continue Cymbalta and Hydrocodone
GERD
-Continue Protonix
Hx Aortic Stenosis s/p Bioprosthetic Aortic Valve Replacement
Hx Pulmonary Embolism, provoked following AVR
DVT proph: SC Heparin
Code Status: DNR
Anticipated Discharge: 24 - 48 hours
Subjective/Interval History
-
Date of Service: November 24, 2023
Patient was seen and examined. She reported no new significant symptoms or complaints.
Objective Data
-
Labs:
Laboratory Results
11/24/23
03:58
WBC 9.2
Hgb 13.2
Hct 39.5
Plt Count 305
Sodium 136
Potassium 3.9
Chloride 97 L
Carbon Dioxide 30
BUN 29 H
Creatinine 1.2 H
Glucose 109 H
Calcium 10.3 H
Vital Signs:
Vital Signs
Temp Pulse Resp BP Pulse Ox
97.6 F 110 22 110/89 96
11/24/23 07:30 11/24/23 07:27 11/24/23 06:00 11/24/23 07:27 11/24/23 07:27
I&O
11/23/23 11/24/23 11/25/23
06:59 06:59 06:59
Intake Total 400 / 400
Output Total 150 / 150
Balance 250 / 250
[2023-11-24] MEDS: DELTASONE 5 MG PO (16:34)
[2023-11-24] MEDS: ASPIR LOW (ENTERIC COATED) 81 MG PO (16:34)
--- NOTE | 2023-11-24 17:10 | CM ---
Patient from [facility] with Dx HF, MARIANA, rapid A fib. O2 2L. PT & OT recommend skilled rehab.
Spoke with patient's daughter Anabella;
the patient has resided at [facility] since February 2023 and likes living there as she loves the social activities.
The patient has been A/O and SNOQUALMIE wearing hearing aides.
The patient has been assisted with ADLs such as bathing/dressing.
She ambulates short distances usng her RW, and has ongoing balance issues however no recent falls.
The aides push mobilize her in her w/c to the dining quintero or longer distances.
The patient is currently getting PT through [facility].
DME - RW, w/c, hearing aides
VN - [facility]
SNF - prior [facility]
PCP- Santana Crain
Pharmacy - [address], [place]
The patient's daughter in law is Dr Hong.
Discussed patient's current functional mobility as per PT/OT and their recommendations. Daughter prefer patient return to [facility] with resumption of VN for PT/OT and possibly [facility] for SN for HF Education.
Plan follow up with [facility] about return with VN.
[2023-11-24] MEDS: TOPROL XL 25 MG PO (20:37)
[2023-11-24] MEDS: METAMUCIL, KONSYL 1 PACKET PO (21:13)
[2023-11-24] MEDS: LIPITOR 40 MG PO (21:13)
[2023-11-24] MEDS: SENOKOT 8.59999999999999964 MG PO (21:14)
[2023-11-25 03:19] VITALS: BP 108/63
[2023-11-25 05:02] LABS: Hemoglobin 13.7 g/dL (12.0-16.0); Mean Corp Hgb Conc. 35.1 g/dL (33.0-37.0); Mean Corpuscular Hgb 34.3 pg (27.0-31.0); Mean Corpuscular Volume 97.5 fL (81.0-99.0); Platelet Count 355 10^3/uL (130-400); Red Cell Dist. Width 12.8 % (11.5-14.5); White Blood Cell Count 9.6 10^3/uL (4.8-10.8)
[2023-11-25 05:33] LABS: Blood Urea Nitrogen 31 mg/dl (7-17); Calcium 10.2 mg/dl (8.4-10.2); Carbon Dioxide 31 mmol/L (22-30); Chloride 99 mmol/L (98-107); Estimated Creatinine Clearance 17 ml/min; Glucose 96 mg/dl (70-99); Magnesium 2.1 mg/dl (1.6-2.3); Potassium 3.8 mmol/L (3.5-5.1); Sodium 138 mmol/L (135-145); eGFR 36.19
[2023-11-25 05:44] VITALS: BMI 27.4
[2023-11-25 06:00] VITALS: BMI 27.4
[2023-11-25 07:40] VITALS: BP 114/58
--- NOTE | 2023-11-25 08:16 | W.PN.CARDCBS ---
Addendum entered and electronically signed by Seamus Soriano MD 11/25/23 18:04:
Family has agreed to start Eliquis 2.5 mg twice daily
Original Note:
Today's Communication / Plan
-
Oral torsemide
Consider Jardiance if no history of UTIs
Rate control better on increased metoprolol
Echo satisfactory
Await decision regarding Eliquis, I would be in favor
Impression / Plan
-
PCP: Santana Crain
Bulk Pigment Reducer: Dr. Alexia Medina
Impression:
Acute hypoxic respiratory insufficiency
Acute on chronic HFpEF
MARIANA
CAD
s/p CABG x2 PINEDA to LAD, SVG to OM 11/27/16
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
h/o right sided pleural effusion and s/p thoracentesis for 450 ml 06/23/22
Hypertension
Hypercholesterolemia
Chronic lower extremity edema with venous stasis wounds/ulcers followed by wound care
Paroxysmal atrial fibrillation
h/o PE with minimal clot burden (2 small filling defects of the subsegmental vessel supplying the lingula) 12/09/16
Arthritis
Anemia
Linq monitor
h/o Colon resection 2011
Cataract extraction
Lexiscan nuclear stress test 02/23/2019: Moderate fixed defect in the basal, anterior lateral and mid anterior lateral segment consistent with prior infarction, EF 68% no ischemia
Echo 05/19/2022: EF 60 to 65%.� Mild LVH.� Moderate MR.� Bioprosthetic aortic valve peak/mean gradient 16/7 mmHg.� Moderate TR, PAP 45 to 47 mmHg
Echo 11/24/23: Small left ventricle, EF 60-65% normal RV, severely dilated atria, MAC, mild mitral stenosis, mean gradient 4 mmHg, moderate MR, bioprosthetic aortic valve, peak/mean gradient 10/6 mmHg, moderate to severe TR, pulmonary artery pressure
42 mmHg systolic
Plan:
She appears comfortable now, and her heart failure seems reasonably controlled at the moment.
Her creatinine remains elevated, currently 1.4.
Will transition back to oral torsemide later today. Would favor 40 mg of torsemide twice daily instead of 70 mg daily.
I spoke with daughter Anabella. They are leaning towards Eliquis but have not yet decided on anticoagulation. In general she is in a safe environment mostly in a wheelchair and does not transfer without assistance, so I think fall risk is actually
low. I would be in favor of Eliquis. They will contact us when they have reached a decision.
There have been recent changes in guidance for SGLT2 inhibitors, so despite low creatinine clearance her GFR is acceptable and she could be considered for Jardiance. Will discuss with family members.
Progress Note - Bulk Pigment Reducer
Subjective
Date of Service: November 25, 2023:
Allergies: None Meds
Outpatient meds: Aspirin 81 mg a day, atorvastatin 40 mg at bedtime, duloxetine 60 mg a day, Nexium 40 mg a day, folic acid, hydrocodone, metoprolol ER 50 mg a day, Movantik 12.5 mg daily, prednisone 5 mg a day, senna, sulfasalazine, torsemide 70 mg
daily
Current medications: Aspirin 81 mg a day, atorvastatin 40 mg a day, Cymbalta 60 mg a day, metoprolol ER 50 mg a.m., 25 mg p.m. Movantik, pantoprazole, prednisone 5 mg daily, senna, Azulfidine 500 twice daily hydrocodone, folate, subcu heparin,
furosemide 60 IV twice daily
PMH/SH/PSH/FH: Reviewed
ROS: Negative except as above
Hemoglobin 13.7, BUN/creatinine 31 and 1.4, potassium 3.8, troponin 0. 045, proBNP was 8050 on admission, previously 2500 in : Atrial fibrillation, right bundle branch block,
Objective
Labs:
11/25/23 04:28
11/25/23 04:28
Labs
Hgb 13.7 g/dL (12.0-16.0) 11/25/23 04:28
Hct 39.0 % (37.0-47.0) 11/25/23 04:28
Plt Count 355 10^3/uL (130-400) 11/25/23 04:28
Sodium 138 mmol/L (135-145) 11/25/23 04:28
Potassium 3.8 mmol/L (3.5-5.1) 11/25/23 04:28
BUN 31 mg/dl (7-17) H 11/25/23 04:28
Creatinine 1.4 mg/dL (0.6-1.0) H 11/25/23 04:28
Glucose 96 mg/dl (70-99) 11/25/23 04:28
Troponins
11/23/23 11/24/23 11/24/23
21:29 03:58 10:29
Troponin I 0.052 H* 0.041 H* 0.045 H*
Vital Signs and I&O:
Vital Signs
Temp Pulse Resp BP Pulse Ox
36.3 C 79 16 114/58 94
11/25/23 07:40 11/25/23 07:40 11/25/23 07:40 11/25/23 07:40 11/25/23 07:40
Vital Signs
Temp Pulse Resp BP Pulse Ox
36.3 C 79 16 114/58 94
11/25/23 07:40 11/25/23 07:40 11/25/23 07:40 11/25/23 07:40 11/25/23 07:40
Intake & Output
11/23/23 11/24/23 11/25/23 11/26/23
07:59 07:59 07:59 07:59
Intake Total 400 / 400 940 / 940
Output Total 150 / 150 700 / 700
Balance 250 / 250 240 / 240
Physical Exam
Physical Exam
114/58, pulse 79, weight is 51.6 kg, -0.2 kg, if accurate down 4.1 kg since admission, intake and output +250 mL
Frail, pleasant, slightly forgetful, anxious and markable, lungs clear, loud MR murmur irregular rate and rhythm, JVD 8-10, abdomen benign, 2+ edema with legs wrapped
[2023-11-25] MEDS: HEPARIN 5000 UNITS SC ×2 (08:23→16:32)
[2023-11-25] MEDS: LASIX 60 MG IV (08:24)
[2023-11-25] MEDS: AZULFIDINE 500 MG PO ×2 (08:24→20:28)
[2023-11-25] MEDS: OCUVITE SOFTGEL 1 CAP PO ×2 (08:24→20:29)
[2023-11-25] MEDS: FOLVITE 1 MG PO (08:24)
[2023-11-25] MEDS: NORCO 5/325 1 TABLET PO ×2 (08:24→20:28)
[2023-11-25] MEDS: CYMBALTA DELAYED RELEASE 60 MG PO (08:24)
[2023-11-25] MEDS: PROTONIX 40 MG PO (08:24)
[2023-11-25] MEDS: TOPROL XL 50 MG PO (08:25)
--- NOTE | 2023-11-25 11:33 | W.PN.HOSP.TC ---
Today's Communication/Plan
-
Plan is to switch to Torsemide today as below
Consider Jardiance
Anticoagulation with Eliquis is preferred
Assessment / Plan
Assessment / Plan
Physical Exam
General: Comfortable and Conversant
HEENT: Normocephalic
Respiratory: Clear to Auscultation Bilaterally
Cardiac: S1/S2, Irregular Rhythm, Tachycardia, Murmur
GI: Soft and Non Tender. Positive bowel sounds.
Musculoskeletal: No Cyanosis. 2+ pitting edema in the lower extremities bilaterally.
Skin: Warm and Dry
Neuro: Awake and Alert
Psych: Calm
Assessment/Plan
Acute Hypoxic Respiratory Insufficiency secondary Acute on Chronic HFpEF
Presentation with worsening shortness of breath
-Cardiology consulted, recommendations appreciated
-Echocardiogram
-Patient's Torsemide was increased outpatient with no resulting improvement
-Lasix 60mg IV BID will be switched to back to oral torsemide later today with plan for 40 mg of torsemide twice daily instead of 70 mg daily (patient was taking 70 mg daily at home)
-Monitor Is&Os and Daily Weight
-Consideration for starting Jardiance (if no history of UTIs)
Elevated Troponin, suspect Non-Ishcemic Myocardial Injury due to acute heart failure
Acute Kidney Injury likely secondary to Cardiorenal
-Monitor creatinine closely
-Check bladder scans
Atrial Fibrillation with Rapid Ventricular Response
Paroxysmal Atrial Fibrillation, rate with only fair control
-Continue metoprolol --> but increase to 50 mg in a.m. and 25 mg in p.m.
-Was not on anticoagulation prior to arrival
-Patient's daughter Denisse, on November 24, 2023 mentioned that patient tends to bruise easily
-Continue Aspirin, cardiology will consider anticoagulation with shared-decision making with patient's family --> fall risk is low as patient is mostly in a wheelchair and does not transfer without assistance
-So Eliquis would be better for the patient rather than no anticoagulation
Coronary Artery Disease s/p CABG - status post AVR/CABG in 2017
-Continue aspirin
Hyperlipidemia
-Continue atorvastatin
Ulcerative Colitis
-Continue prednisone and sulfasalazine
Chronic Constipation
-Continue Senna and Metamucil
Spinal Stenosis
-Continue Cymbalta and Hydrocodone
GERD
-Continue Protonix
History of Aortic Stenosis s/p Bioprosthetic Aortic Valve Replacement
History of Pulmonary Embolism, provoked following AVR
DVT Prophylaxis: Subcutaneous Heparin
Code Status: DNR
Anticipated Discharge: 24 - 48 hours
Subjective/Interval History
-
Date of Service: November 25, 2023
Patient was seen and examined. She denied any chest pain or shortness of breath.
Objective Data
-
Labs:
Laboratory Results
11/25/23
04:28
WBC 9.6
Hgb 13.7
Hct 39.0
Plt Count 355
Sodium 138
Potassium 3.8
Chloride 99
Carbon Dioxide 31 H
BUN 31 H
Creatinine 1.4 H
Glucose 96
Calcium 10.2
Vital Signs:
Vital Signs
Temp Pulse Resp BP Pulse Ox
97.3 F 79 16 114/58 94
11/25/23 07:40 11/25/23 08:24 11/25/23 07:40 11/25/23 08:24 11/25/23 07:40
I&O
11/24/23 11/25/23 11/26/23
06:59 06:59 06:59
Intake Total 400 / 400 940 / 940
Output Total 150 / 150 700 / 700
Balance 250 / 250 240 / 240
[2023-11-25 11:52] VITALS: BP 133/88
--- NOTE | 2023-11-25 15:27 | CM ---
Patient resides at [facility]. Daughter would like patient to return with resumption of [facility] rehab. Therapy recommendation is for SNF for skilled and rehab services. Therapist notes that: patient is unsteady even with walker;
requires hands on assist for safety; and not sure she is safe to return to [facility]. This CM called [facility] to speak with nurse to determine if they are able to accept patient back with the above deficits. Nurse was on phone. Left message with
relief cook requesting return call to discuss.
[2023-11-25 15:42] VITALS: BP 125/76
[2023-11-25] MEDS: DELTASONE 5 MG PO (16:31)
[2023-11-25] MEDS: DEMADEX 40 MG PO (16:32)
[2023-11-25] MEDS: ASPIR LOW (ENTERIC COATED) 81 MG PO (16:32)
[2023-11-25 19:29] VITALS: BP 124/74
[2023-11-25] MEDS: TOPROL XL 25 MG PO (20:29)
[2023-11-25] MEDS: ELIQUIS 2.5 MG PO (20:29)
[2023-11-25] MEDS: LIPITOR 40 MG PO (21:58)
[2023-11-25] MEDS: METAMUCIL, KONSYL 1 PACKET PO (21:58)
[2023-11-25] MEDS: SENOKOT 8.59999999999999964 MG PO (21:59)
[2023-11-25 23:37] VITALS: BP 105/65
[2023-11-26] VITALS (7 sets, daily range): BP systolic 113–138; BP diastolic 62–84; PULSE 85; O2SAT 95; BMI 27.3
[2023-11-26 06:05] LABS: Hematocrit 38.5 % (37.0-47.0); Mean Corp Hgb Conc. 33.8 g/dL (33.0-37.0); Mean Corpuscular Hgb 32.8 pg (27.0-31.0); Mean Corpuscular Volume 97.2 fL (81.0-99.0); Platelet Count 290 10^3/uL (130-400); Red Blood Cell Count 3.96 10^6/uL (4.20-5.40); Red Cell Dist. Width 12.6 % (11.5-14.5); White Blood Cell Count 9.5 10^3/uL (4.8-10.8)
[2023-11-26 06:37] LABS: Blood Urea Nitrogen 31 mg/dl (7-17); Calcium 9.6 mg/dl (8.4-10.2); Carbon Dioxide 28 mmol/L (22-30); Chloride 100 mmol/L (98-107); Estimated Creatinine Clearance 19 ml/min; Glucose 91 mg/dl (70-99); Magnesium 1.9 mg/dl (1.6-2.3); Potassium 3.2 mmol/L (3.5-5.1); Sodium 138 mmol/L (135-145); eGFR 39.55
--- NOTE | 2023-11-26 08:05 | W.PN.CARDCBS ---
Today's Communication / Plan
-
Continue current regimen
May be difficult to optimize volume status
Discharge planning
Impression / Plan
-
PCP: Santana Crain
Camera Assembler: Dr. Alexia Medina
Impression:
Acute hypoxic respiratory insufficiency
Acute on chronic HFpEF
MARIANA
CAD
s/p CABG x2 [facility] to LAD, SVG to OM 11/27/16
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
h/o right sided pleural effusion and s/p thoracentesis for 450 ml 06/23/22
Hypertension
Hypercholesterolemia
Chronic lower extremity edema with venous stasis wounds/ulcers followed by wound care
Paroxysmal atrial fibrillation
h/o PE with minimal clot burden (2 small filling defects of the subsegmental vessel supplying the lingula) 12/09/16
Arthritis
Anemia
Linq monitor
h/o Colon resection 2011
Cataract extraction
Moderate MR (at least) with mild mitral stenosis
Moderate to severe TR
Lexiscan nuclear stress test 02/23/2019: Moderate fixed defect in the basal, anterior lateral and mid anterior lateral segment consistent with prior infarction, EF 68% no ischemia
Echo 05/19/2022: EF 60 to 65%.� Mild LVH.� Moderate MR.� Bioprosthetic aortic valve peak/mean gradient 16/7 mmHg.� Moderate TR, PAP 45 to 47 mmHg
Echo 11/24/23: Small left ventricle, EF 60-65% normal RV, severely dilated atria, MAC, mild mitral stenosis, mean gradient 4 mmHg, moderate MR, bioprosthetic aortic valve, peak/mean gradient 10/6 mmHg, moderate to severe TR, pulmonary artery pressure
42 mmHg systolic
Plan:
She appears comfortable but on exam is mildly volume overloaded. Torsemide is currently 40 mg twice daily. Creatinine is 1.3, I am not certain that we can intensify diuretics any further.
Would avoid SGLT2 inhibitor given history of UTIs. Given low GFR, reluctant to prescribe spironolactone.
She is now anticoagulated with Eliquis. Rate control is adequate.
At this point, I am not sure we can do much better. Mitral regurgitation and stenosis is probably driving her heart failure but she is not a candidate for intervention, and MitraClip not a good option given age, comorbidities and mitral stenosis.
Would continue current regimen at present's.
Supplement potassium.
Family requests 1 more day of observation which I think is reasonable.
Discharge planning per general service.
Progress Note - Camera Assembler
Subjective
Date of Service: November 26, 2023:
She states she feels better and that breathing is close to normal. Son-in-law Bala Hong and 2 daughters at bedside.
Patient had UTI about 2 weeks ago.
Allergies: None to medications
Medications: Aspirin 81 mg a day, atorvastatin 40 mg a day, duloxetine 60 mg daily, Nexium 40 mg daily, folic acid 1 mg daily, hydrocodone, Metamucil, metoprolol ER 50 mg a day, Movantik 12.5 mg daily, prednisone 5 mg daily, senna, sulfasalazine,
torsemide 70 mg a day,
Current meds: Atorvastatin 40 mg a day, duloxetine 60 mg daily, metoprolol ER 50 mg a.m. 25 mg p.m., Protonix, prednisone 5, Senokot, Azulfidine 500 twice daily, hydrocodone, folic acid, torsemide 40 mg twice daily, apixaban 2.5 mg twice daily
PMH/PSH/SH/FH: Reviewed
ROS negative except as above
Hemoglobin 13, potassium 3.2, BUN and creatinine 31 and 1.3, GFR is 39.5
Objective
Labs:
11/26/23 05:00
11/26/23 05:00
Labs
Hgb 13.0 g/dL (12.0-16.0) 11/26/23 05:00
Hct 38.5 % (37.0-47.0) 11/26/23 05:00
Plt Count 290 10^3/uL (130-400) 11/26/23 05:00
Sodium 138 mmol/L (135-145) 11/26/23 05:00
Potassium 3.2 mmol/L (3.5-5.1) L 11/26/23 05:00
BUN 31 mg/dl (7-17) H 11/26/23 05:00
Creatinine 1.3 mg/dL (0.6-1.0) H 11/26/23 05:00
Glucose 91 mg/dl (70-99) 11/26/23 05:00
Troponins
11/23/23 11/24/23 11/24/23
21:29 03:58 10:29
Troponin I 0.052 H* 0.041 H* 0.045 H*
Vital Signs and I&O:
Vital Signs
Temp Pulse Resp BP Pulse Ox
36.7 C 104 16 136/84 95
11/26/23 07:17 11/26/23 07:17 11/26/23 07:17 11/26/23 07:17 11/26/23 07:17
Vital Signs
Temp Pulse Resp BP Pulse Ox
36.7 C 104 16 136/84 95
11/26/23 07:17 11/26/23 07:17 11/26/23 07:17 11/26/23 07:17 11/26/23 07:17
Intake & Output
11/24/23 11/25/23 11/26/23 11/27/23
07:59 07:59 07:59 07:59
Intake Total 400 / 400 940 / 940 660 / 660
Output Total 150 / 150 700 / 700
Balance 250 / 250 240 / 240 660 / 660
Physical Exam
Physical Exam
Weight is 51.3 kg, down 0.3 kg, pulse is 70s to 100, 136/84
Neck veins elevated, few crackles in right base, irregular rate and rhythm, loud MR murmur, abdomen benign, head neck exam benign but hard of hearing, extremities trace to 1+ edema, neuro nonfocal
[2023-11-26] MEDS: DEMADEX 40 MG PO ×2 (09:59→16:04)
[2023-11-26] MEDS: ELIQUIS 2.5 MG PO ×2 (09:59→20:58)
[2023-11-26] MEDS: CYMBALTA DELAYED RELEASE 60 MG PO (09:59)
[2023-11-26] MEDS: OCUVITE SOFTGEL 1 CAP PO ×2 (09:59→20:57)
[2023-11-26] MEDS: PROTONIX 40 MG PO (09:59)
[2023-11-26] MEDS: FOLVITE 1 MG PO (10:00)
[2023-11-26] MEDS: NORCO 5/325 1 TABLET PO ×2 (10:00→21:01)
[2023-11-26] MEDS: TOPROL XL 50 MG PO (10:00)
[2023-11-26] MEDS: AZULFIDINE 500 MG PO ×2 (10:00→21:00)
[2023-11-26] MEDS: KCL 40 MEQ PO (10:12)
--- NOTE | 2023-11-26 10:25 | PTCARENOTE ---
Soft Lump on Pts right calf present. Pt daughter states that it was there before and then went away. Lump is now back. Doctor Andie made aware.
[2023-11-26] MEDS: DELTASONE 5 MG PO (16:05)
--- NOTE | 2023-11-26 16:44 | CM ---
Therapy recommendation for SNF. Family wants to return to [facility]. Left messages for [facility] nurse to call to discuss if they can accept with therapy noted limitations. Awaiting return call. Will also await therapy ongoing evals to determine if
recommendation changes.
--- NOTE | 2023-11-26 16:54 | W.PN.HOSP.TC ---
Today's Communication/Plan
-
Family requested patient to be discharged tomorrow, discussed this with cardiology
Assessment / Plan
Assessment / Plan
Physical Exam
General: Comfortable and Conversant
HEENT: Normocephalic
Respiratory: Crackles
Cardiac: S1/S2, Irregular Rhythm, Murmur
GI: Soft and Non Tender. Positive bowel sounds.
Musculoskeletal: No Cyanosis. 2+ pitting edema in the lower extremities bilaterally.
Skin: Warm and Dry
Neuro: Awake and Alert
Psych: Calm
Assessment/Plan
Acute Hypoxic Respiratory Insufficiency secondary Acute on Chronic HFpEF
Presentation with worsening shortness of breath
-Cardiology consulted, recommendations appreciated
-Echocardiogram
-Patient's Torsemide was increased outpatient with no resulting improvement
-Lasix 60mg IV BID will be switched to back to oral torsemide with plan for 40 mg of torsemide twice daily instead of 70 mg daily (patient was taking 70 mg daily at home)
-Monitor Is&Os and Daily Weight
-Avoid SGLT2i due to history of UTIs
-Aldactone not recommended due to low GFR
Elevated Troponin, suspect Non-Ishcemic Myocardial Injury due to acute heart failure
Acute Kidney Injury likely secondary to Cardiorenal
-Monitor creatinine closely
-Check bladder scans
Right Calf Lump
-Check DVT ultrasound
-Check X-ray
Atrial Fibrillation with Rapid Ventricular Response
Paroxysmal Atrial Fibrillation, rate with only fair control
-Continue metoprolol --> but increase to 50 mg in a.m. and 25 mg in p.m.
-Was not on anticoagulation prior to arrival
-Patient's daughter Denisse, on November 24, 2023 mentioned that patient tends to bruise easily
-Continue Aspirin, cardiology will consider anticoagulation with shared-decision making with patient's family --> fall risk is low as patient is mostly in a wheelchair and does not transfer without assistance
-So Eliquis would be better for the patient rather than no anticoagulation
Coronary Artery Disease s/p CABG - status post AVR/CABG in 2017
-Continue aspirin
Hyperlipidemia
-Continue atorvastatin
Ulcerative Colitis
-Continue prednisone and sulfasalazine
Chronic Constipation
-Continue Senna and Metamucil
Spinal Stenosis
-Continue Cymbalta and Hydrocodone
GERD
-Continue Protonix
History of Aortic Stenosis s/p Bioprosthetic Aortic Valve Replacement
History of Pulmonary Embolism, provoked following AVR
DVT Prophylaxis: Subcutaneous Heparin
Code Status: DNR
Anticipated Discharge: Within 24 hours
Subjective/Interval History
-
Date of Service: November 26, 2023
Patient was seen and examined. She denied any new symptoms or complaints, her daughter reported that patient had a right calf lump.
Objective Data
-
Labs:
Laboratory Results
11/26/23
05:00
WBC 9.5
Hgb 13.0
Hct 38.5
Plt Count 290
Sodium 138
Potassium 3.2 L
Chloride 100
Carbon Dioxide 28
BUN 31 H
Creatinine 1.3 H
Glucose 91
Calcium 9.6
Vital Signs:
Vital Signs
Temp Pulse Resp BP Pulse Ox
98.6 F 85 14 133/84 97
11/26/23 15:25 11/26/23 16:04 11/26/23 15:25 11/26/23 16:04 11/26/23 15:25
I&O
11/25/23 11/26/23 11/27/23
06:59 06:59 06:59
Intake Total 940 / 940 660 / 660
Output Total 700 / 700
Balance 240 / 240 660 / 660
[2023-11-26] MEDS: LIPITOR 40 MG PO (21:00)
[2023-11-26] MEDS: METAMUCIL, KONSYL 1 PACKET PO (21:00)
[2023-11-26] MEDS: SENOKOT 8.59999999999999964 MG PO (21:01)
[2023-11-26] MEDS: TOPROL XL 25 MG PO (21:01)
[2023-11-27 02:46] VITALS: BMI 27.1
[2023-11-27 03:10] VITALS: BP 113/74
[2023-11-27 07:20] VITALS: BP 136/88
[2023-11-27 08:12] LABS: Hematocrit 38.4 % (37.0-47.0); Mean Corp Hgb Conc. 33.9 g/dL (33.0-37.0); Mean Corpuscular Hgb 32.5 pg (27.0-31.0); Mean Platelet Volume 9.8 fL (7.4-10.4); Platelet Count 289 10^3/uL (130-400); Red Cell Dist. Width 12.6 % (11.5-14.5); White Blood Cell Count 10.3 10^3/uL (4.8-10.8)
[2023-11-27 08:37] LABS: Blood Urea Nitrogen 25 mg/dl (7-17); Calcium 9.7 mg/dl (8.4-10.2); Carbon Dioxide 29 mmol/L (22-30); Chloride 99 mmol/L (98-107); Estimated Creatinine Clearance 22 ml/min; Glucose 82 mg/dl (70-99); Potassium 3.5 mmol/L (3.5-5.1); Sodium 138 mmol/L (135-145); eGFR 48.33
[2023-11-27] MEDS: OCUVITE SOFTGEL 1 CAP PO ×2 (08:44→20:14)
[2023-11-27] MEDS: PROTONIX 40 MG PO (08:44)
[2023-11-27] MEDS: CYMBALTA DELAYED RELEASE 60 MG PO (08:44)
[2023-11-27] MEDS: AZULFIDINE 500 MG PO ×2 (08:44→20:15)
[2023-11-27] MEDS: FOLVITE 1 MG PO (08:45)
[2023-11-27] MEDS: TOPROL XL 50 MG PO (08:45)
[2023-11-27] MEDS: NORCO 5/325 1 TABLET PO ×2 (08:45→20:15)
[2023-11-27] MEDS: DEMADEX 40 MG PO ×2 (08:45→16:14)
[2023-11-27] MEDS: ELIQUIS 2.5 MG PO ×2 (08:45→20:15)
[2023-11-27] MEDS: KCL 20 MEQ PO (08:46)
--- NOTE | 2023-11-27 10:40 | W.PN.HOSP.TC ---
Addendum entered and electronically signed by Mir Vasquez MD 11/27/23 12:05:
d/w with Cm, [facility] can't take patient over weekend as on new medication. Will need to wait till wednesday.
Original Note:
Today's Communication/Plan
-
Await ultrasound results
Start Dispo planning
Case management aware
Assessment / Plan
Assessment / Plan
Physical Exam
General: Comfortable and Conversant
HEENT: Normocephalic
Respiratory: Crackles
Cardiac: S1/S2, Irregular Rhythm, Murmur
GI: Soft and Non Tender. Positive bowel sounds.
Musculoskeletal: No Cyanosis. Bilateral lower extremity venous stasis changes, right lower extremity mild 1 x 4 cm nontender soft cyst noted
Skin: Warm and Dry
Neuro: Awake and Alert
Psych: Calm
Assessment/Plan
Acute Hypoxic Respiratory Insufficiency secondary Acute on Chronic HFpEF
Presentation with worsening shortness of breath
-Cardiology consulted, recommendations appreciated
-Echocardiogram
-Patient's Torsemide was increased outpatient with no resulting improvement
-Lasix 60mg IV BID will be switched to back to oral torsemide with plan for 40 mg of torsemide twice daily instead of 70 mg daily (patient was taking 70 mg daily at home)
-Monitor Is&Os and Daily Weight
-Avoid SGLT2i due to history of UTIs
-Aldactone not recommended due to low GFR
Elevated Troponin, suspect Non-Ishcemic Myocardial Injury due to acute heart failure
Acute Kidney Injury likely secondary to Cardiorenal
-Monitor creatinine closely
-Check bladder scans
Right Calf Lump
-X-ray with suspected sebaceous cyst
-Probably chronic in nature.
-Ultrasound results pending
-Can follow-up outpatient with dermatology
Atrial Fibrillation with Rapid Ventricular Response
Paroxysmal Atrial Fibrillation, rate with only fair control
-Continue metoprolol --> but increase to 50 mg in a.m. and 25 mg in p.m.
-Was not on anticoagulation prior to arrival
-Patient's daughter Denisse, on November 24, 2023 mentioned that patient tends to bruise easily
-Continue Aspirin, cardiology will consider anticoagulation with shared-decision making with patient's family --> fall risk is low as patient is mostly in a wheelchair and does not transfer without assistance
-Tolerating low-dose Eliquis
Coronary Artery Disease s/p CABG - status post AVR/CABG in 2017
-Continue aspirin
Hyperlipidemia
-Continue atorvastatin
Ulcerative Colitis
-Continue prednisone and sulfasalazine
Chronic Constipation
-Continue Senna and Metamucil
Spinal Stenosis
-Continue Cymbalta and Hydrocodone
GERD
-Continue Protonix
History of Aortic Stenosis s/p Bioprosthetic Aortic Valve Replacement
History of Pulmonary Embolism, provoked following AVR
DVT Prophylaxis: Eliquis
Code Status: DNR
Discussed with family member at bedsideya
Anticipated Discharge: Today
Subjective/Interval History
-
Date of Service: November 27, 2023
Denies any chest pain or shortness of breath
Objective Data
-
Labs:
Laboratory Results
11/27/23
07:06
WBC 10.3
Hgb 13.0
Hct 38.4
Plt Count 289
Sodium 138
Potassium 3.5
Chloride 99
Carbon Dioxide 29
BUN 25 H
Creatinine 1.1 H
Glucose 82
Calcium 9.7
Vital Signs:
Vital Signs
Temp Pulse Resp BP Pulse Ox
97.6 F 90 18 136/88 93
11/27/23 07:20 11/27/23 08:45 11/27/23 07:20 11/27/23 08:45 11/27/23 07:20
I&O
11/26/23 11/27/2311/27/24
06:59 06:59 06:59
Intake Total 660 / 660 480 / 480
Balance 660 / 660 480 / 480
Data Reviewed
-
Total Time Spent with Patient (in minutes): 55
[2023-11-27 11:23] VITALS: BP 150/89
--- NOTE | 2023-11-27 12:08 | CM ---
CM reviewed pt with Dr Vasquez- anticipate dc today
Per home O2 eval- pt does not qualify for home O2
Multiple calls with nursing staff/Jesika at [facility]
Pt accepted back for admission based on PT/OT notes
However, as pt will be prescribed new meds on dc, unable to accept as weekend admission
Weekend staff unable to start new nursing orders on the weekend at facility
Update to dtr/Jennifer
Anticipate dc back to [facility] on Wed with [facility]
Update to [facility] via [facility]
Discharge Disposition- return [facility]
[2023-11-27 15:15] VITALS: BP 117/67
[2023-11-27] MEDS: DELTASONE 5 MG PO (16:14)
[2023-11-27 19:20] VITALS: BP 148/89
[2023-11-27] MEDS: TOPROL XL 25 MG PO (20:14)
[2023-11-27 23:16] VITALS: BP 122/86
[2023-11-27] MEDS: LIPITOR 40 MG PO (23:34)
[2023-11-27] MEDS: METAMUCIL, KONSYL 1 PACKET PO (23:35)
[2023-11-27] MEDS: SENOKOT PO (23:38)
[2023-11-28 01:00] VITALS: BMI 26.8
[2023-11-28 03:18] VITALS: BP 114/71
[2023-11-28 07:20] VITALS: BP 132/71
[2023-11-28] MEDS: OCUVITE SOFTGEL 1 CAP PO ×2 (09:45→20:39)
[2023-11-28] MEDS: DEMADEX 40 MG PO ×2 (09:45→16:48)
[2023-11-28] MEDS: CYMBALTA DELAYED RELEASE 60 MG PO (09:45)
[2023-11-28] MEDS: PROTONIX 40 MG PO (09:46)
[2023-11-28] MEDS: AZULFIDINE 500 MG PO ×2 (09:46→20:39)
[2023-11-28] MEDS: TOPROL XL 50 MG PO (09:46)
[2023-11-28] MEDS: NORCO 5/325 1 TABLET PO ×2 (09:46→20:39)
[2023-11-28] MEDS: ELIQUIS 2.5 MG PO ×2 (09:46→20:39)
[2023-11-28] MEDS: FOLVITE 1 MG PO (09:47)
[2023-11-28] MEDS: KCL 20 MEQ PO (09:47)
[2023-11-28 11:35] LABS: Blood Urea Nitrogen 24 mg/dl (7-17); Calcium 9.6 mg/dl (8.4-10.2); Carbon Dioxide 30 mmol/L (22-30); Chloride 102 mmol/L (98-107); Estimated Creatinine Clearance 22 ml/min; Glucose 116 mg/dl (70-99); Potassium 3.7 mmol/L (3.5-5.1); Sodium 139 mmol/L (135-145); eGFR 48.33
[2023-11-28 11:45] VITALS: BP 133/90
[2023-11-28 15:20] VITALS: BP 105/60
[2023-11-28] MEDS: DELTASONE 5 MG PO (16:48)
--- NOTE | 2023-11-28 18:36 | W.PN.HOSP.TC ---
Addendum entered and electronically signed by Beto Loredo MD 12/07/23 10:46:
Hypokalemia
Original Note:
Today's Communication/Plan
-
Anticipated discharge tomorrow
Assessment / Plan
Assessment / Plan
Physical Exam
General: Comfortable and Conversant
HEENT: Normocephalic
Respiratory: Crackles
Cardiac: S1/S2, Irregular Rhythm, Murmur
GI: Soft and Non Tender. Positive bowel sounds.
Musculoskeletal: No Cyanosis. Bilateral lower extremity venous stasis changes, right lower extremity mild 1 x 4 cm nontender soft cyst noted
Skin: Warm and Dry
Neuro: Awake and Alert
Psych: Calm

Ultrasound of Bilateral Lower Extremities
IMPRESSION: No evidence of deep venous thrombosis
There is a 4.6 x 0.8 x 3.0 cm right-sided complex Borja's cyst
There is a 4.1 x 1.0 x 1.6 cm left sided complex Borja cyst.
There is a 2.4 x 0.8 x 2.9 cm in diameter hypoechoic mass in the right calf consistent with hematoma
X-Ray of Right Lower Leg
IMPRESSION: No acute pathology identified
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
Bony demineralization.
Mild tibiotalar osteoarthritis.
Probable dermal mass of the medial mid right calf. This may be a benign sebaceous cyst. This could further be evaluated by a nonurgent ultrasound if indicated clinically.

Assessment/Plan
Acute Hypoxic Respiratory Insufficiency - RESOLVED - secondary Acute on Chronic HFpEF
Presentation with worsening shortness of breath
-Cardiology consulted, recommendations appreciated
-Echocardiogram noted
-Patient's Torsemide was increased outpatient with no resulting improvement
-Lasix 60mg IV BID switched back to oral torsemide with plan for 40 mg of torsemide twice daily instead of 70 mg daily (patient was taking 70 mg daily at home)
-Monitor Is&Os and Daily Weight
-Avoid SGLT2i due to history of UTIs
-Aldactone not recommended due to low GFR
Elevated Troponin, suspect Non-Ishcemic Myocardial Injury due to acute heart failure
Acute Kidney Injury likely secondary to Cardiorenal
-Monitor creatinine closely
-Check bladder scans
Right Calf Lump
-X-ray with suspected sebaceous cyst
-Probably chronic in nature.
-Ultrasound results as above including hematoma and Borja Cysts -- which appear to be asymptomatic
-Can follow-up outpatient with dermatology and orthopedics
Atrial Fibrillation with Rapid Ventricular Response
Paroxysmal Atrial Fibrillation, rate with only fair control
-Continue metoprolol --> but increased to 50 mg in a.m. and 25 mg in p.m.
-Was not on anticoagulation prior to arrival
-Patient's daughter Denisse, on November 24, 2023 mentioned that patient tends to bruise easily
-Continue Aspirin, cardiology will consider anticoagulation with shared-decision making with patient's family --> fall risk is low as patient is mostly in a wheelchair and does not transfer without assistance
-Tolerating low-dose Eliquis
Coronary Artery Disease s/p CABG - status post AVR/CABG in 2017
-Cardiology okay with continuing Aspirin as confirmed with on-call navigation officer on 11/28/23 via [place] Text
Hyperlipidemia
-Continue atorvastatin
Ulcerative Colitis
-Continue prednisone and sulfasalazine
Chronic Constipation
-Continue Senna and Metamucil
Spinal Stenosis
-Continue Cymbalta and Hydrocodone
GERD
-Continue Protonix
History of Aortic Stenosis s/p Bioprosthetic Aortic Valve Replacement
History of Pulmonary Embolism, provoked following AVR
DVT Prophylaxis: Eliquis
Code Status: DNR
Discussed with family member at bedside
Anticipated Discharge: Within 24 hours
Subjective/Interval History
-
Date of Service: November 28, 2023
Patient was seen and examined. She denied any chest pain or shortness of breath.
Objective Data
-
Labs:
Laboratory Results
11/28/23
10:09
Sodium 139
Potassium 3.7
Chloride 102
Carbon Dioxide 30
BUN 24 H
Creatinine 1.1 H
Glucose 116 H
Calcium 9.6
Vital Signs:
Vital Signs
Temp Pulse Resp BP Pulse Ox
97.9 F 58 16 105/60 96
11/28/23 15:20 11/28/23 16:48 11/28/23 15:20 11/28/23 16:48 11/28/23 15:20
I&O
11/27/23 11/28/23 11/29/23
06:59 06:59 06:59
Intake Total 480 / 480 900 / 900
Balance 480 / 480 900 / 900
[2023-11-28] MEDS: TOPROL XL 25 MG PO (20:39)
[2023-11-28 20:51] VITALS: BP 148/76
[2023-11-28] MEDS: METAMUCIL, KONSYL 1 PACKET PO (22:37)
[2023-11-28] MEDS: SENOKOT 8.59999999999999964 MG PO (22:37)
[2023-11-28] MEDS: LIPITOR 40 MG PO (22:37)
[2023-11-28 22:45] VITALS: BP 134/81
[2023-11-29] VITALS (7 sets, daily range): BP systolic 121–154; BP diastolic 65–93; PULSE 86; O2SAT 94; BMI 26.6
[2023-11-29 07:08] LABS: Blood Urea Nitrogen 21 mg/dl (7-17); Calcium 9.4 mg/dl (8.4-10.2); Carbon Dioxide 26 mmol/L (22-30); Chloride 104 mmol/L (98-107); Estimated Creatinine Clearance 24 ml/min; Glucose 92 mg/dl (70-99); Magnesium 1.9 mg/dl (1.6-2.3); Potassium 3.7 mmol/L (3.5-5.1); Sodium 137 mmol/L (135-145); eGFR 54.19
[2023-11-29] MEDS: FOLVITE 1 MG PO (08:07)
[2023-11-29] MEDS: LOW STRENGTH ASPIRIN 81 MG PO (08:07)
[2023-11-29] MEDS: NORCO 5/325 1 TABLET PO ×2 (08:07→20:56)
[2023-11-29] MEDS: OCUVITE SOFTGEL 1 CAP PO ×2 (08:08→20:55)
[2023-11-29] MEDS: KCL 20 MEQ PO (08:08)
[2023-11-29] MEDS: CYMBALTA DELAYED RELEASE 60 MG PO (08:08)
[2023-11-29] MEDS: AZULFIDINE 500 MG PO ×2 (08:08→20:55)
[2023-11-29] MEDS: PROTONIX 40 MG PO (08:08)
[2023-11-29] MEDS: ELIQUIS 2.5 MG PO ×2 (08:08→20:55)
[2023-11-29] MEDS: TOPROL XL 50 MG PO (08:08)
[2023-11-29] MEDS: DEMADEX 40 MG PO ×2 (08:10→16:00)
--- NOTE | 2023-11-29 14:09 | W.PN.HOSP.TC ---
Today's Communication/Plan
-
Discharge planning
Assessment / Plan
Assessment / Plan
Gen-AAOx3, NAD
HEENT-NC, AT, anicteric, clear oral mm
Neck-supple
CV-reg, no M, +S1/S2
Lungs-clear B/L
Abd-soft, NT, ND
Ext-no edema
Musculoskeletal-no cyanosis, clubbing
Skin-warm and dry
Neuro-grossly non-focal
Psych-calm, cooperative
Acute Hypoxic Respiratory Insufficiency -due to acute heart failure exacerbation.
Acute on chronic heart failure with preserved EF exacerbation -clinically improved.
-Echocardiogram noted
-Patient's Torsemide was increased outpatient with no resulting improvement
-Lasix 60mg IV BID switched back to oral torsemide with plan for 40 mg of torsemide twice daily instead of 70 mg daily (patient was taking 70 mg daily at home)
-Monitor Is&Os and Daily Weight
-Avoid SGLT2i due to history of UTIs
-Aldactone not recommended due to low GFR
Elevated Troponin, suspect acute non-ischemic myocardial Injury due to acute heart failure
MARIANA - likely secondary to Cardiorenal. Renal function improved.
Right Calf Lump
-X-ray with suspected sebaceous cyst
-Probably chronic in nature.
-Ultrasound results as above including hematoma and Borja Cysts -- which appear to be asymptomatic
-Can follow-up outpatient with dermatology and orthopedics
Atrial Fibrillation with Rapid Ventricular Response
Paroxysmal Atrial Fibrillation, rate with only fair control
-Continue metoprolol --> but increased to 50 mg in a.m. and 25 mg in p.m.
-Was not on anticoagulation prior to arrival
-Patient's daughter Denisse, on November 24, 2023 mentioned that patient tends to bruise easily
-Continue Aspirin, cardiology will consider anticoagulation with shared-decision making with patient's family --> fall risk is low as patient is mostly in a wheelchair and does not transfer without assistance
-Tolerating low-dose Eliquis
CAD s/p CABG - status post AVR/CABG in 2017
-Cardiology okay with continuing Aspirin as confirmed with on-call nurse orthopedic on 11/28/23 via [place] Text
Hyperlipidemia
-Continue atorvastatin
Ulcerative Colitis
-Continue prednisone and sulfasalazine
Chronic Constipation
-Continue Senna and Metamucil
Spinal Stenosis
-Continue Cymbalta and Hydrocodone
GERD
-Continue Protonix
History of Aortic Stenosis s/p Bioprosthetic Aortic Valve Replacement
History of Pulmonary Embolism, provoked following AVR
DNR
Dispo - family to decide between [facility] with outpatient PT versus SNF. Medically stable for discharge. Updated daughter at the bedside.
Anticipated Discharge: Within 24 hours
Subjective/Interval History
-
Date of Service: November 29, 2023
Patient seen and examined. No complaints. Daughter at the bedside.
Objective Data
-
Labs:
Laboratory Results
11/29/23
04:59
Sodium 137
Potassium 3.7
Chloride 104
Carbon Dioxide 26
BUN 21 H
Creatinine 1.0
Glucose 92
Calcium 9.4
Vital Signs:
Vital Signs
Temp Pulse Resp BP Pulse Ox
98.0 F 78 18 144/93 94
11/29/23 11:00 11/29/23 11:00 11/29/23 11:00 11/29/23 11:00 11/29/23 11:00
I&O
11/28/23 11/29/23 11/30/23
06:59 06:59 06:59
Intake Total 900 / 900 930 / 930
Balance 900 / 900 930 / 930
Review of Systems
-
History Source: Patient
All other systems: Reviewed and negative
[2023-11-29] MEDS: DELTASONE 5 MG PO (16:00)
--- NOTE | 2023-11-29 17:03 | CM ---
Discharge Plan of Care: [facility] will not accept back due to therapy recommendation for STR. Daughters selected preferences and they were forwarded.
[2023-11-29] MEDS: TOPROL XL 25 MG PO (20:56)
[2023-11-29] MEDS: LIPITOR 40 MG PO (21:33)
[2023-11-29] MEDS: METAMUCIL, KONSYL 1 PACKET PO (21:33)
[2023-11-29] MEDS: SENOKOT 8.59999999999999964 MG PO (21:33)
[2023-11-30 03:29] VITALS: BP 111/61
[2023-11-30 05:42] VITALS: BMI 26.5
[2023-11-30 07:31] VITALS: BP 129/68
[2023-11-30] MEDS: DEMADEX 40 MG PO (08:44)
[2023-11-30] MEDS: OCUVITE SOFTGEL 1 CAP PO (08:44)
[2023-11-30] MEDS: LOW STRENGTH ASPIRIN 81 MG PO (08:44)
[2023-11-30] MEDS: TOPROL XL 50 MG PO (08:44)
[2023-11-30] MEDS: PROTONIX 40 MG PO (08:44)
[2023-11-30] MEDS: KCL 20 MEQ PO (08:44)
[2023-11-30] MEDS: FOLVITE 1 MG PO (08:44)
[2023-11-30] MEDS: AZULFIDINE 500 MG PO (08:44)
[2023-11-30] MEDS: ELIQUIS 2.5 MG PO (08:44)
[2023-11-30] MEDS: NORCO 5/325 1 TABLET PO (08:44)
[2023-11-30] MEDS: CYMBALTA DELAYED RELEASE 60 MG PO (08:44)
--- NOTE | 2023-11-30 09:35 | W.PN.HOSP.TC ---
Today's Communication/Plan
-
Discharge planning
Assessment / Plan
Assessment / Plan
Gen-AAOx3, NAD
HEENT-NC, AT, anicteric, clear oral mm
Neck-supple
CV-reg, no M, +S1/S2
Lungs-clear B/L
Abd-soft, NT, ND
Ext-no edema
Musculoskeletal-no cyanosis, clubbing
Skin-warm and dry
Neuro-grossly non-focal
Psych-calm, cooperative
Acute Hypoxic Respiratory Insufficiency -due to acute heart failure exacerbation. Oxygenation normal on room air.
Acute on chronic heart failure with preserved EF exacerbation -clinically improved.
-Echocardiogram noted
-Continue torsemide 40 mg twice daily.
-Avoid SGLT2i due to history of UTIs
-Aldactone not recommended due to low GFR
Elevated Troponin, suspect acute non-ischemic myocardial Injury due to acute heart failure
MARIANA - likely secondary to Cardiorenal. Renal function improved.
Right Calf Lump
-X-ray with suspected sebaceous cyst
-Probably chronic in nature.
-Ultrasound results as above including hematoma and Borja Cysts -- which appear to be asymptomatic
-Can follow-up outpatient with dermatology and orthopedics
Atrial Fibrillation with Rapid Ventricular Response
Paroxysmal Atrial Fibrillation, rate with only fair control
-Continue metoprolol --> but increased to 50 mg in a.m. and 25 mg in p.m.
-Was not on anticoagulation prior to arrival
-Patient's daughter Denisse, on November 24, 2023 mentioned that patient tends to bruise easily
-Continue Aspirin, cardiology will consider anticoagulation with shared-decision making with patient's family --> fall risk is low as patient is mostly in a wheelchair and does not transfer without assistance
-Tolerating low-dose Eliquis
CAD s/p CABG - status post AVR/CABG in 2017
-Cardiology okay with continuing Aspirin as confirmed with on-call research assistant professor on 11/28/23 via [place] [employer]
Hyperlipidemia
-Continue atorvastatin
Ulcerative Colitis
-Continue prednisone and sulfasalazine
Chronic Constipation
-Continue Senna and Metamucil
Spinal Stenosis
-Continue Cymbalta and Hydrocodone
GERD
-Continue Protonix
History of Aortic Stenosis s/p Bioprosthetic Aortic Valve Replacement
History of Pulmonary Embolism, provoked following AVR
DNR
Dispo -medically stable for discharge. Awaiting SNF placement.
Anticipated Discharge: Within 24 hours
Subjective/Interval History
-
Date of Service: November 30, 2023
Patient seen and examined. No complaints. Denies shortness of breath.
Objective Data
-
Vital Signs:
Vital Signs
Temp Pulse Resp BP Pulse Ox
97.5 F 77 18 129/68 95
11/30/23 07:31 11/30/23 08:44 11/30/23 07:31 11/30/23 08:44 11/30/23 07:31
I&O
11/29/23 11/30/23 12/01/23
06:59 06:59 06:59
Intake Total 930 / 930 1080 / 1080
Balance 930 / 930 1080 / 1080
Review of Systems
-
History Source: Patient
All other systems: Reviewed and negative
--- NOTE | 2023-11-30 10:46 | PN.CDI ---
CDI
- -
CDI:
Physician Documentation Request
Admit Date: 11/23/23 23:42
Dear Doctor Gertrude,
Patient admitted for acute heart failure exacerbation.
11/25 Potassium level: 3.2
11/25 Potassium chloride 40 meq PO administered
Based on the above, could you clarify in the progress notes, the appropriate diagnosis, if significant, that supports the above abnormalities and additional evaluation, monitoring and/or treatment rendered:
Hypokalemia
Abnormal lab value insignificant
Other
Use of terms such as suspected, likely, concern for, or probable (associated with a specific diagnosis that is being evaluated, monitored, or treated as if it exists) are acceptable and can be coded in the inpatient setting, when documented at the
time of discharge.
Thank you,
Azalia Chauhan RN, BSN
CDI Specialist
Available via [place] text
Please use your independent medical judgment in providing your response.
[2023-11-30 11:01] VITALS: BP 118/71
--- NOTE | 2023-11-30 14:23 | W.DS.TRANS ---
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
-
Discharge Instructions:
Discharge Diagnosis/Procedures Acute heart failure exacerbation, acute kidney
injury, rapid atrial fibrillation
Diet 2 Gram Sodium
Activity As tolerated,With assistance
Driving Restrictions No driving
Bathing Restrictions None
Instructions: *DCA Heart Failure Instructions
Stand-Alone Forms:
Changes to Home Medications: No
Discharge Medications:
DC Medications w/original date entered in [facility]
folic acid 1 mg tablet 1 mg PO DAILY Supplement 11/26/16
atorvastatin 40 mg tablet 40 mg PO HS High cholesterol 12/09/16
duloxetine 60 mg capsule,delayed release 60 mg PO DAILY Mental Health/Anxiety 12/09/16
prednisone 5 mg tablet 5 mg PO DAILY@1600 inflammation 12/09/16
aspirin 81 mg tablet,delayed release 81 mg PO DAILY@1600 Blood clot prevention/tx 06/22/22
esomeprazole magnesium 40 mg capsule,delayed release (Nexium) 40 mg PO DAILY Gastrointestinal issue 06/22/22
sennosides 8.6 mg capsule (senna) 8.6 mg PO HS constipation #10 caps 06/25/22
Metamucil 1 dose PO HS Constipation 10/30/23
metoprolol succinate 50 mg tablet,extended release 24 hr 50 mg PO DAILY Blood Pressure 10/30/23
naloxegol 12.5 mg tablet (Movantik) 12.5 mg PO DAILY opioid induced constipation 10/30/23
sulfasalazine 500 mg tablet 500 mg PO BID Gastrointestinal issue 10/30/23
vit C 250 mg-vit E 90 mg-zinc 40 mg-copper 1 [id number] capsule (PreserVision AREDS-2) 1 cap PO BID Supplement 10/30/23
apixaban 2.5 mg tablet (Eliquis) 2.5 mg PO BID #0 tabs 11/30/23
hydrocodone 5 mg-acetaminophen 325 mg tablet 1 tab PO BID Pain #6 tabs 11/30/23
metoprolol succinate 25 mg tablet,extended release 24 hr 25 mg PO DAILY@2000 #0 tabs 11/30/23
potassium chloride 20 mEq tablet,extended release(part/cryst) 20 meq PO DAILY #0 tabs 11/30/23
torsemide 20 mg tablet 40 mg (2 x 20 mg) PO BID@0800,1600 #0 tabs 11/30/23
Home Medication Changes
Pending Results: No
--- NOTE | 2023-11-30 14:34 | CM ---
Patient has been medically cleared for discharge to [facility] for shelter and rehab services. Family prefers to transport patient to [facility].
NURSE TO NURSE # [phone]
FAX # [phone]
[2023-11-30 15:00] VITALS: BP 124/72
[2023-11-30 15:38] LABS: COVID-19 Antigen Negative (Negative)
== END 2023-11-30 15:55 | DRG 291 ==
LOC: 2 NORTH 23:42
PROVIDERS: Hospitalist; Physician Assistant Medical; ADMITTING PHYSICIAN Hospitalist; ATTENDING PHYSICIAN Hospitalist; EMERGENCY PHYSICIAN Emergency Medicine; FAMILY PHYSICIAN Family Medicine; OTHER PHYSICIAN Internal Medicine Cardiovascular Disease
DX: I11.0 Hypertensive heart disease with heart failure (principal); I50.33 Acute on chronic diastolic (congestive) heart failure; K51.90 Ulcerative colitis, unspecified, without complications; N17.9 Acute kidney failure, unspecified; I5A Non-ischemic myocardial injury (non-traumatic); R09.02 Hypoxemia; E78.00 Pure hypercholesterolemia, unspecified; I25.10 Atherosclerotic heart disease of native coronary artery without angina pectoris; I45.10 Unspecified right bundle-branch block; I48.0 Paroxysmal atrial fibrillation; R06.89 Other abnormalities of breathing; K59.09 Other constipation; E87.6 Hypokalemia; K21.9 Gastro-esophageal reflux disease without esophagitis; I08.3 Combined rheumatic disorders of mitral, aortic and tricuspid valves; M17.11 Unilateral primary osteoarthritis, right knee; M48.00 Spinal stenosis, site unspecified; M71.22 Synovial cyst of popliteal space [Baker], left knee; M71.21 Synovial cyst of popliteal space [Baker], right knee; D64.9 Anemia, unspecified; Z66 Do not resuscitate; Z95.1 Presence of aortocoronary bypass graft; Z95.3 Presence of xenogenic heart valve; Z86.711 Personal history of pulmonary embolism; Z91.048 Other nonmedicinal substance allergy status; Z79.82 Long term (current) use of aspirin; Z79.52 Long term (current) use of systemic steroids; Z79.891 Long term (current) use of opiate analgesic; Z82.49 Family history of ischemic heart disease and other diseases of the circulatory system; Z87.440 Personal history of urinary (tract) infections; Z11.52 Encounter for screening for COVID-19
CPT/HCPCS: 71046; 73590; 80048; 80053; 80061; 83735; 83880; 84484; 85025; 85027; 87070; 87811; 93005; 93306; 93970; 97116; 97163; 97167; 97530; 99285

== ENCOUNTER → 2023-12-21 15:31 | Outpatient (REF) | payer MEDICARE, BC, SELFPAY ==
[2023-12-21 16:34] LABS: NT-proBNP 5190 pg/ml
[2023-12-21 16:36] LABS: Blood Urea Nitrogen 16 mg/dl (7-17); Calcium 9.8 mg/dl (8.4-10.2); Carbon Dioxide 29 mmol/L (22-30); Chloride 99 mmol/L (98-107); Glucose 83 mg/dl (70-99); Magnesium 1.9 mg/dl (1.6-2.3); Potassium 4.4 mmol/L (3.5-5.1); Sodium 137 mmol/L (135-145); eGFR 54.19
== END ==
LOC: REG 15:31
PROVIDERS: ATTENDING PHYSICIAN Internal Medicine Cardiovascular Disease
DX: I48.0 Paroxysmal atrial fibrillation (principal); I50.32 Chronic diastolic (congestive) heart failure
CPT/HCPCS: 36415; 80048; 83735; 83880

== ENCOUNTER → 2024-01-05 15:55 | Outpatient (REF) | payer MEDICARE, BC, SELFPAY ==
[2024-01-05 17:18] LABS: NT-proBNP 4190 pg/ml
[2024-01-05 17:21] LABS: Blood Urea Nitrogen 21 mg/dl (7-17); Calcium 9.9 mg/dl (8.4-10.2); Carbon Dioxide 29 mmol/L (22-30); Chloride 99 mmol/L (98-107); Glucose 85 mg/dl (70-99); Sodium 138 mmol/L (135-145); eGFR 54.19
== END ==
LOC: OLABSOL 15:55
PROVIDERS: ATTENDING PHYSICIAN Internal Medicine Cardiovascular Disease
DX: I50.32 Chronic diastolic (congestive) heart failure (principal); I10 Essential (primary) hypertension; R60.0 Localized edema
CPT/HCPCS: 36415; 80048; 83880

== ENCOUNTER 2024-01-11 16:59 | Inpatient (IN) | payer MEDICARE, BC, SELFPAY ==
[2024-01-11] VITALS (8 sets, daily range): BP systolic 100–123; BP diastolic 65–95; BMI 21.9; BMI 27.3
[2024-01-11 14:09] LABS: % Basophils 0.4 % (0-2); % Eosinophils 1.7 % (0-6); % Immature Granulocytes 0.3 % (0-0.5); % Lymphocytes 18.8 % (20.5-51.1); % Monocytes 11.5 % (1.7-9.3); % Neutrophils 67.3 % (42.2-75.2); Absolute Eosinophils 0.2 10^3/uL (0-0.7); Absolute Lymphocytes 1.8 10^3/uL (1.2-3.4); Absolute Monocytes 1.1 10^3/uL (0.1-0.6); Absolute Neutrophils 6.4 10^3/uL (1.4-6.5); Hematocrit 41.7 % (37.0-47.0); Hemoglobin 13.7 g/dL (12.0-16.0); Mean Corp Hgb Conc. 32.9 g/dL (33.0-37.0); Mean Corpuscular Hgb 30.3 pg (27.0-31.0); Mean Corpuscular Volume 92.3 fL (81.0-99.0); Mean Platelet Volume 9.7 fL (7.4-10.4); Nucleated Red Blood Cells % 0 %; Platelet Count 308 10^3/uL (130-400); Red Blood Cell Count 4.52 10^6/uL (4.20-5.40); Red Cell Dist. Width 13.4 % (11.5-14.5); White Blood Cell Count 9.4 10^3/uL (4.8-10.8)
--- NOTE | 2024-01-11 14:46 | ED.GENMED ---
History of Present Illness
General
Chief Complaint: Breathing Problem
Source: patient
Exam Limitations: none
Time Seen by Provider: 01/11/24 12:42
Nursing documentation reviewed up to this point in time: agreed with
Travel History
Have you had any contact with someone who has COVID-19?: No
Do you have any symptoms of coronavirus? Fever > 100 degrees, chills, cough, shortness of breath, sore throat, loss of taste or smell, muscle aches, or headache?: No
History of Present Illness
History of Present Illness:
Patient with history of atrial fibrillation on Eliquis and congestive heart failure on torsemide, presents to ED secondary to increased leg swelling, weight gain, and shortness of breath. Patient was evaluated by her primary executive services administrator, Dr. Hale
Adam, who advised patient come to ED for an evaluation. Patient denies chest pain. Denies nausea, vomiting, or diarrhea. Denies dizziness. Denies recent change in medications or diet. Denies recent illness. Denies leg pain. Per family
at bedside, patient was admitted to the hospital recently for similar complaint, when her symptoms were far worse.
Past History
Past History
ED Past Medical History: CAD, CHF, HTN, Hypercholesterolemia, Valvular disease and Other
ED Past Surgical History: Appendectomy, Cholecystectomy and Other
Social History
Tobacco: Non-smoker
Alcohol: None
Drug: None
Personal:
Living: residential
Employment: Retired
Family History
Family History: Other
Review of Systems
Review of Systems
Allergies reviewed?: Yes
All Other Systems: ROS reviewed and negative except as documented in HPI and ROS
Constitutional: Reports no symptoms; Denies fever
Respiratory: Reports trouble breathing
Cardiac: Reports no symptoms
ABD/GI: Reports no symptoms
: Reports no symptoms
Musculoskeletal: Reports edema
Skin: Reports no symptoms
Neurological: Reports no symptoms
Phy Exam
Physical Exam
Physical Exam:
Physical Exam
General: no apparent distress, not acutely ill. afebrile. weak appearing.
Head: nc/at. eomi
Neck: supple. normal range of motion.
Heart: s1/s2 regular rate and rhythm, no murmur. equal radial pulses.
Lungs: mild respiratory distress. diminished breath sounds bilaterally. mild retraction noted.
Abdomen: normal bowel sounds. not tender.
Neuro: alert and oriented. no focal neurological deficits
Skin: no rash
Psychiatric: well kept. interactive and cooperative
Extremities: LE b/l edema. no calf tenderness.
Scores
Heart Failure Risk
Heart Failure Risk Score: Yes
History of Stroke or TIA: No
History of intubation for respiratory distress: No
Heart rate on ED arrival >/= 110: Yes
SaO2 <90% on arrival on room air: No
HR >/=110 during 3min walk test (or too ill to perform test): Yes
ECG has acute ischemic changes: No
Urea >/=12mmol/L (BUN 33.6mg/dL): No
Serum CO2>/=35mmol/L: No
Troponin I or T elevated to [place] Level (0.4mg/dL): No
NT-proBNP >/=5,000ng/L (5,000pg/ml): No
HF Risk Score: 2
Admission Status: MEDIUM RISK 9.2% Consider observation or discharge to home with homecare & f/u visit to PCP/Automobile Mechanic Helper, or SNF for treatment
Course
Orders/Labs/Results
Orders:
Orders
01/11/24 13:17
Electrocardiogram (*1) Urgent
Reason for Study: Shortness of Breath
EKG- Treatment ONCE
01/11/24 13:18
CR Chest - 2 Views Urgent
Comment:
Reason For Exam: sob
01/11/24 13:49
Complete Blood Count/With Diff Urgent
01/11/24 14:46
Metoprolol [Lopressor] 5 mg IV NOW STA
01/11/24 14:47
Comprehensive Metabolic Panel Urgent
Magnesium Urgent
NT-proBNP Urgent
Troponin I Urgent
01/11/24 14:53
Bumetanide [Bumex] 2 mg IV NOW STA
01/11/24 Dinner
Cholesterol Lowering
At Your Request: Limited Participation
Fluid Restriction: 1500 mL/day (50 oz)
Cholesterol Lowering: Sodium, 2 Gram
01/11/24 16:31
Admit/Transfer Patient As Directed
Co-Sign Provider:
Level of Care: Inpatient admission
Assign to:: Telemetry
Physician / Group: Tyler
Diagnosis: A-fib, CHF
Reason for Telemetry: Acute Heart Failure
Date to Stop Telemetry: 01/14/24
Time to Stop Telemetry: 11:00
Reason for Hospitalization: IV diuretics
Expected length of stay greater than two midnights?: Yes
ELOS- Estimated Length of Stay in days: 3
I certify the patient meets the requirements for IP care: Yes
01/11/24 16:33
Code Status As Directed
Resuscitation Status: Do not resuscitate
Reached after discussion with pt or family/Healthcare POA: Yes
01/11/24 16:34
DNR Bracelet Application ONCE
01/11/24 19:51
CARDIOLOGY CONSULT Routine
Consulting Provider: Otto Beatty
Was physician already notified: Yes
HF DIETARY CONSULT Routine
HF EDUCATOR CONSULT Routine
Comment:
Activity As Directed
Activity Level: Out of Bed-Early Mobility
Intake/ Output As Directed
Frequency: Per unit guidelines
Patient Education As Directed
Type: CHF folder
Comment: give on admission. Document in Interdisciplinary Education record
Sleep Apnea Assessment by RN As Directed
Comment:
Physician Instructions:
Vital Signs As Directed
Frequency: Other
Additional Instructions:: Q12 or per unit guidelines if more frequent.
Weight As Directed
Frequency: Daily
Type of Scale: Standing Scale
Comment: Daily morning weight. If unable to stand, use balanced bed scale.
Weight As Directed
Frequency: Once
Type of Scale: Standing Scale
Comment: Upon Admission. If unable to stand, use balanced bed scale.
Pulse Ox/cont/shift [RESP] Routine
Quantity: 1
Special Instructions: Daily pulse oximetry at rest. If greater than 92% at rest also obtain pulse oximetry
while ambulating as tolerated.
Ot Eval And Treat Routine
Pt Eval And Treat Routine
Activity Level: Out of Bed-Early Mobility
01/11/24 20:00
Apixaban [Eliquis] 2.5 mg PO BID
Hydrocodone 5/APAP 325 [[place] 5/325] 1 tablet PO BID
Sulfasalazine [Azulfidine] 500 mg PO BID
01/11/24 22:00
Atorvastatin [Lipitor] 40 mg PO HS
Metoprolol Xl [Toprol Xl] 25 mg PO HS
Psyllium [Metamucil, Konsyl] 1 packet PO HS
Sennosides [Senokot] 8.6 mg PO HS
01/12/24 06:23
Basic Metabolic Panel IN AM
Complete Blood Count/No Diff IN AM
Magnesium IN AM
TSH Reflex To Free T4 IN AM
01/12/24 08:00
Bumetanide [Bumex] 2 mg IV DAILY
Duloxetine Delayed Release [Cymbalta Delayed Release] 60 mg PO DAILY
FOLic ACID [Folvite] 1 mg PO DAILY
Metoprolol Xl [Toprol Xl] 50 mg PO DAILY
Pantoprazole [Protonix] 40 mg PO DAILY
Potassium Chloride [KCl] 20 meq PO DAILY
naloxegol [Movantik] 12.5 mg PO DAILY
01/12/24 16:00
Aspirin Low Dose EC [Aspir Low (Enteric Coated)] 81 mg PO DAILY@1600
Prednisone [Deltasone] 5 mg PO DAILY@1600
01/13/24 06:00
Basic Metabolic Panel IN AM
01/14/24 06:00
Basic Metabolic Panel IN AM
01/14/24 11:00
DC Protocol for Telemetry ONCE
Abnormal Lab Results
01/11/24 01/11/24
13:49 14:47
MCHC 32.9 L g/dL
(33.0-37.0)
Absolute Monos (auto) 1.1 H 10^3/uL
(0.1-0.6)
Lymphocytes % 18.8 L %
(20.5-51.1)
Monocytes % 11.5 H %
(1.7-9.3)
BUN 22 H mg/dl
(7-17)
Glucose 110 H mg/dl
(70-99)
Magnesium 2.5 H mg/dl
(1.6-2.3)
AST 49 H U/L
(14-36)
01/11/24 13:49
01/11/24 14:47
Vital Signs
Initial and Last Documented VS:
Initial Vital Signs
Temp Pulse Resp Pulse Ox
98.1 F 82 19 94
01/11/24 12:37 01/11/24 12:37 01/11/24 12:37 01/11/24 12:37
Last Documented Vital Signs
Temp Pulse Resp BP Pulse Ox
98.2 F 103 15 112/69 95
01/12/24 19:17 01/12/24 19:17 01/12/24 19:17 01/12/24 19:17 01/12/24 19:17
MDM/Problems Addressed
MDM/Problems Addressed:
History and exam concerning for mild fluid overload, along with labile heart rate, which may be contributing to her symptoms. As such, patient will be admitted for IV diuresis and may require medication adjustment during hospitalization.
*EKG
Interpreted by ED Provider?: Yes
EKG Intrepretation Date: 01/11/24
Heart Rate: 104
Rate: tachycardiac
Rhythm: a-fib
[place]: normal axis
Interval: normal interval
QRS Pattern: right bundle branch block
*Critical Care Note
Total Time (30-74mins, 75-104mins- exclusive of procedures): Not Applicable
ED Attending Note
-
Portions of this chart may have been created with voice recognition software.� Occasional wrong word or��sound alike� substitutions may have occurred due to the inherent limitations of voice recognition software.
Discharge Plan
Departure
Patient Disposition: Admit
Date of Disposition: 01/11/24
Time of Disposition: 15:40
Admit to: Telemetry
Presentation/result/management discussed w/ accepting MD/DO: Hospitalist
Discharge Problem:
Atrial fibrillation, rapid, Fluid overload
Interventions
Interventions:
*Risk Screen - Suicide Last Done: 01/11/24 13:17
*General Assessment Last Done: 01/11/24 13:17
*Neglect/Abuse Screening Last Done: 01/11/24 13:17
ED- Fall Risk Assessment Last Done: 01/11/24 19:50
*ED COVID-19 Vaccine History Last Done: 01/11/24 12:39
*Nursing Disposition Last Done: 01/11/24 19:50
ED- Cardiac Assessment Last Done: 01/11/24 13:17
ED- Pulmonary Assessment Last Done: 01/11/24 13:17
Discharge Date and Time
Discharge Date/Time: 01/11/24 19:50
--- NOTE | 2024-01-11 15:29 | W.PN.CARDCBS ---
Addendum entered and electronically signed by Alexia Medina MD 01/11/24 17:09:
I saw and examined the patient.
The Parasitologist's note was reviewed and I agree with the note.
Comment: Please refer to office note. Patient sluggish in the office and appeared short of breath. Heart rates in atrial fibrillation were increased. Would recommend better rate control of atrial fibrillation will increase Toprol-XL to 50 mg
twice daily and follow. And previously was conservative management with rate control if able.
Fatigue could be multifactorial and will defer to primary service would rule out infectious etiology. As noted during office visit she was falling sleep.
In addition would continue diuresis for heart failure with ejection fraction. As an outpatient she is on torsemide 40 mg oral twice daily. Can try a lower dose of Lasix as noted below but may need to escalate or add Zaroxolyn if no improvement.
Follow labs.
Original Note:
Today's Communication / Plan
-
Recommend Lasix 60 mg IV BID for diuresis, this worked well last admission in November
Family interested in rhythm control, talked about CV without AMINA as she has been on OAC since 11/25/23
Also talked about adding amiodarone
Impression / Plan
-
PCP: Santana Crain
Cyber Operator: Dr. Alexia Medina
Impression:
Acute on chronic HFpEF
Persistent atrial fibrillation
Chronic Eliquis OAC since 11/25/23
CAD
s/p CABG x2 PINEDA to LAD, SVG to OM 11/27/16s/p bioprosthetic AVR 11/27/16
h/o right sided pleural effusion and s/p thoracentesis for 450 ml 06/23/22
Hypertension
Hypercholesterolemia
Chronic lower extremity edema with venous stasis wounds/ulcers followed by wound care
h/o PE with minimal clot burden (2 small filling defects of the subsegmental vessel supplying the lingula) 12/09/16
Arthritis
Anemia
Linq monitor
h/o Colon resection 2011
Cataract extraction
Moderate MR (at least) with mild mitral stenosis
Moderate to severe TR
Lexiscan nuclear stress test 02/23/2019: Moderate fixed defect in the basal, anterior lateral and mid anterior lateral segment consistent with prior infarction, EF 68% no ischemia
Echo 05/19/2022: EF 60 to 65%.� Mild LVH.� Moderate MR.� Bioprosthetic aortic valve peak/mean gradient 16/7 mmHg.� Moderate TR, PAP 45 to 47 mmHg
Echo 11/24/23: Small left ventricle, EF 60-65% normal RV, severely dilated atria, MAC, mild mitral stenosis, mean gradient 4 mmHg, moderate MR, bioprosthetic aortic valve, peak/mean gradient 10/6 mmHg, moderate to severe TR, pulmonary artery pressure
42 mmHg systolic
Plan:
-Patient came to [facility] after outpatient cardiology office visit today due to concern for acute HF and cardiology has been consulted. Patient was just admitted to 11/23/23 until 11/30/23 with acute HF and recurrence of paroxysmal Afib. This was the
first documented recurrence of Afib since CABG in 2017. Last admission there was consideration of rate control vs rhythm control strategies and due to increased risk of AMINA the plan was rate control and initiation of OAC. Patient was then diuresed
as low as 110 lbs on day of discharge 11/30/23. Patient was discharged on torsemide 40 mg BID. Patient was seen in the cardiology office today and weight was 113.6 lbs. Patient also noted to be edematous and somnolent, she is usually talkative and
interactive during cardiology office visits. There was concern for acute on chronic HF and so patient was asked to go to [facility] for further evaluation and possible admission.
-pro-BNP is 4740 which is higher than last admission. Patient was diuresed with Lasix 60 mg IV BID last admission. Patient already given Bumex 2 mg IV x1 in the ER. Will transition to Lasix 60 mg IV BID thereafter.
-Dry weight last discharge was 110 lbs
-Patient remains in Afib with is persistent and HRs are 95-105. Last admission plan was for rate control. Patient's daughter and son in law interested in consideration of rhythm control now that patient has tolerated OAC since 11/25/23. Talked about
AAD as well, reviewed risks vs benefits of amiodarone.
-For now will continue with rate control efforts by increasing Toprol XL to 50 mg BID.
-Troponin is in the normal range at 0.032. Patient is s/p CABG x 2 PINEDA to LAD, SVG to OM 11/27/16
-Patient with mod MR and midl MS by last echo. Patient is likely not a candidate for MitraClip given MS.
Progress Note - Cyber Operator
Subjective
Date of Service: January 11, 2024
She is edematous and lethargic
Objective
Labs:
01/11/24 13:49
Labs
Hgb 13.7 g/dL (12.0-16.0) 01/11/24 13:49
Hct 41.7 % (37.0-47.0) 01/11/24 13:49
Plt Count 308 10^3/uL (130-400) 01/11/24 13:49
Sodium Cancelled 01/11/24 13:49
Potassium Cancelled 01/11/24 13:49
BUN Cancelled 01/11/24 13:49
Creatinine Cancelled 01/11/24 13:49
Glucose Cancelled 01/11/24 13:49
Troponins
01/11/24
13:49
Troponin I Cancelled
Vital Signs and I&O:
Vital Signs
Temp Pulse Resp BP Pulse Ox
98.1 F 106 24 115/82 94
01/11/24 12:37 01/11/24 15:15 01/11/24 15:15 01/11/24 15:00 01/11/24 15:00
Vital Signs
Temp Pulse Resp BP Pulse Ox
98.1 F 106 24 115/82 94
01/11/24 12:37 01/11/24 15:15 01/11/24 15:15 01/11/24 15:00 01/11/24 15:00
Physical Exam
Physical Exam
GEN: AAOx3
HEENT: MMM
LUNGS: Decreased BS B/L without wheeze or rales
CV: Irreg irreg, 2/6 BSM and 3/6 sys murmur LSB
ABD: soft, BS+, NT
EXT: Wearing B/L compression hose. +2 B/L LE edema.
NEURO: Gross non-focal
SKIN: No rash
[2024-01-11 15:30] LABS: ALT (SGPT) 25 U/L (0-35); AST (SGOT) 49 U/L (14-36); Albumin 3.9 g/dl (3.5-5.0); Alkaline Phosphatase 74 U/L (38-126); Blood Urea Nitrogen 22 mg/dl (7-17); Calcium 9.5 mg/dl (8.4-10.2); Carbon Dioxide 25 mmol/L (22-30); Chloride 103 mmol/L (98-107); Glucose 110 mg/dl (70-99); Magnesium 2.5 mg/dl (1.6-2.3); Potassium 4.7 mmol/L (3.5-5.1); Sodium 137 mmol/L (135-145); Total Bilirubin 0.8 mg/dl (0.2-1.3); Total Protein 6.4 g/dl (6.3-8.2); eGFR 54.19
[2024-01-11 15:39] LABS: NT-proBNP 4740 pg/ml; Troponin I 0.032 ng/ml
[2024-01-11] MEDS: LOPRESSOR 5 MG IV (15:49)
[2024-01-11] MEDS: BUMEX 2 MG IV (15:51)
--- NOTE | 2024-01-11 16:08 | HPS.HSE ---
Addendum entered and electronically signed by Vamsi Tyler MD 01/11/24 17:15:
Seen and examined by me independently in collaboration with the KIM Kyle.
Past medical history/social history/medication/allergies reviewed.
Lab data and imaging data reviewed.
Sent in from cardiology office because of increased sluggishness, shortness of breath and increased lower extremity edema. She also was noted to be in RVR.
Clinically she has lower extremity edema, JVD and few basilar crackles. Chest x-ray shows no pulmonary edema but her BNP is slightly higher than most recent. A-fib with heart rates in 100s. No angina or chest pain. Clinical concern of heart
failure. Optimize heart rate and start on IV diuresis. Consult cardiology.
No clinical evidence of acute COPD flare. No focal symptoms of infection.
Will check a VBG to make sure she is ventilating okay as sluggishness is one of her symptom which i suspect sec to CHF.
Original Note:
Family Physician
-
Family Physician: Santana Crain
Chief Complaint
-
Lower Ext Edema
History of Present Illness
This is an 88 year old female with past medical history of atrial fibrillation, hypertension, and congestive heart failure presents from her clearance rep with dyspnea and fluid retention. Patient resides in an assisted living facility. Patient
reports she is unsure of her medication regimen and dietary restrictions as the facility manages both. Patient reports bilateral leg soreness but is unsure of duration of symptoms. Patient denies dyspnea, chest pain, or palpitations. Patient denies
any known weight changes but states the facility does weigh her on a regular basis.
Medical History
Past Medical History
Past Medical History: Reports Other
Additional Past Medical History:
Coronary Artery Disease s/p CABG
Chronic HFpEF
Paroxysmal Atrial Fibrillation
Essential Hypertension
Hyperlipidemia
Aortic Stenosis s/p Bioprosthetic Aortic Valve Replacement
Osteoporosis
Ulcerative Colitis
Spinal Stenosis
Hx PE in 2017, provoked following AVR
Past Surgical History: Reports Other
Additional Past Surgical History:
Coronary Artery Bypass Graft
Bioprosthetic Aortic Valve Replacement
Appendectomy
Cholecystectomy
Colon Resection
Social History
Tobacco: Non-smoker
Alcohol: None
Living: Assisted Living
Family History
Family History: Not pertinent
Allergies / Home Medications
Allergies reflects when Allergies were last updated in [facility].
Home Medications with original date entered in [facility]
Allergy/Medication List:
Allergies
Allergy/AdvReac Type Severity Reaction Status Date / Time
adhesive tape Allergy Unknown Verified 01/11/24 12:37
Home Medications
folic acid 1 mg tablet 1 mg PO DAILY Supplement 11/26/16
atorvastatin 40 mg tablet 40 mg PO HS High cholesterol 12/09/16
duloxetine 60 mg capsule,delayed release 60 mg PO DAILY Mental Health/Anxiety 12/09/16
prednisone 5 mg tablet 5 mg PO DAILY@1600 inflammation 12/09/16
aspirin 81 mg tablet,delayed release 81 mg PO DAILY@1600 Blood clot prevention/tx 06/22/22
esomeprazole magnesium 40 mg capsule,delayed release (Nexium) 40 mg PO DAILY Gastrointestinal issue 06/22/22
metoprolol succinate 50 mg tablet,extended release 24 hr 50 mg PO DAILY Blood Pressure 10/30/23
naloxegol 12.5 mg tablet (Movantik) 12.5 mg PO DAILY opioid induced constipation 10/30/23
psyllium 1 packet PO HS Constipation ##0 10/30/23
sulfasalazine 500 mg tablet 500 mg PO BID Gastrointestinal issue 10/30/23
vit C 250 mg-vit E 90 mg-zinc 40 mg-copper 1 [id number] capsule (PreserVision AREDS-2) 1 cap PO BID Supplement 10/30/23
apixaban 2.5 mg tablet (Eliquis) 2.5 mg PO BID #0 tabs 11/30/23
hydrocodone 5 mg-acetaminophen 325 mg tablet 1 tab PO BID Pain #6 tabs 11/30/23
potassium chloride 20 mEq tablet,extended release(part/cryst) 20 meq PO DAILY #0 tabs 11/30/23
torsemide 20 mg tablet 40 mg (2 x 20 mg) PO BID@0800,1600 #0 tabs 11/30/23
metoprolol succinate 25 mg tablet,extended release 24 hr 25 mg PO HS 01/11/24
sennosides 8.6 mg tablet (senna) 8.6 mg PO HS 01/11/24
Review of Systems
-
A 12 point ROS was completed and negative except as noted: Yes
Constitutional: Denies Weight Gain
Respiratory: Reports Trouble Breathing
Cardiac: Denies Chest Pain or Palpitations
Physical Exam
Vital Signs
Vital Signs
Temp Pulse Resp BP Pulse Ox
98.1 F 114 24 116/83 94
01/11/24 12:37 01/11/24 15:49 01/11/24 15:15 01/11/24 15:49 01/11/24 15:00
Physical Exam
General: Comfortable and Conversant
HEENT: Anicteric and Moist mucous membranes
Respiratory: Clear and Decreased Breath Sounds (Poor inspiratory effort)
Cardiac: S1/S2, Irregular Rhythm, Tachycardia and JVD
GI: Soft and Non Tender
Musculoskeletal: No Clubbing, No Cyanosis and Other (Bilateral lower ext edema - MURIEL stockings in place)
Skin: Warm and Dry
Neuro: Awake, Alert and Nonfocal/grossly intact
Psych: Calm
Laboratory Results
-
01/11/24 13:49
01/11/24 14:47
Laboratory Results
Total Bilirubin 0.8 mg/dl (0.2-1.3) 01/11/24 14:47
AST 49 U/L (14-36) H 01/11/24 14:47
ALT 25 U/L (0-35) 01/11/24 14:47
Alkaline Phosphatase 74 U/L (38-126) 01/11/24 14:47
Troponin I 0.032 ng/ml 01/11/24 14:47
Data Reviewed
-
Lab Data: Labs Reviewed by me
Old Records: Reviewed
Impression/Plan
-
Acute on Chronic HFpEF
-Consult Cardiology
-Continue Bumex 2mg IV Daily
-Monitor Is&Os and Daily Weights
Atrial Fibrillation, rate with only fair control
-Continue metoprolol
-Continue Eliquis
Coronary Artery Disease s/p CABG
-Continue aspirin
Hyperlipidemia
-Continue atorvastatin
Ulcerative Colitis
-Continue prednisone and sulfasalazine
Chronic Constipation
-Continue Senna and Metamucil
-Patient uses Movantik as outpatient
Spinal Stenosis
-Continue Cymbalta and Hydrocodone
GERD
-Continue Protonix
Hx Aortic Stenosis s/p Bioprosthetic Aortic Valve Replacement
Hx Pulmonary Embolism, provoked following AVR
DVT proph: Eliquis
Code Status: DNR
[2024-01-11 18:59] LABS: Venous Blood Gas B.E. 1.7 mmol/L (-4 to +4); Venous Blood Gas HCO3 25.8 mmol/L (22-27); Venous Blood Gas O2 Sat % 99.8 %; Venous Blood Gas pCO2 38 mmHg (35-48); Venous Blood Gas pH 7.44 (7.32-7.43); Venous Blood Gas pO2 200 mmHg (30-50)
--- NOTE | 2024-01-11 19:37 | PTCARENOTE ---
Rn Flow mini bar attendant- called to june superintendent landfill operations and to volunteer office. Patient requesting june for prayers and volunteer office to have therapy dog visit patient.
[2024-01-11] MEDS: ELIQUIS 2.5 MG PO (20:26)
[2024-01-11] MEDS: AZULFIDINE 500 MG PO (20:27)
[2024-01-11] MEDS: NORCO 5/325 1 TABLET PO (20:27)
[2024-01-11] MEDS: METAMUCIL, KONSYL 1 PACKET PO (21:19)
[2024-01-11] MEDS: LIPITOR 40 MG PO (21:19)
[2024-01-11] MEDS: SENOKOT 8.59999999999999964 MG PO (21:19)
[2024-01-11] MEDS: TOPROL XL 25 MG PO (21:20)
--- NOTE | 2024-01-11 22:35 | PTCARENOTE ---
Received pt from ED @ 1999. Pt slid over from stretcher to bed. AAOx3, VSS. Oriented to room, call mann and plan of care.
[2024-01-12] VITALS (9 sets, daily range): BP systolic 98–153; BP diastolic 60–84; PULSE 64–71; O2SAT 94–95; BMI 26.6
[2024-01-12 07:04] LABS: Hematocrit 39.6 % (37.0-47.0); Hemoglobin 13.3 g/dL (12.0-16.0); Mean Corp Hgb Conc. 33.6 g/dL (33.0-37.0); Mean Corpuscular Hgb 31.3 pg (27.0-31.0); Mean Corpuscular Volume 93.2 fL (81.0-99.0); Mean Platelet Volume 10.1 fL (7.4-10.4); Platelet Count 258 10^3/uL (130-400); Red Blood Cell Count 4.25 10^6/uL (4.20-5.40); Red Cell Dist. Width 13.4 % (11.5-14.5); White Blood Cell Count 9.2 10^3/uL (4.8-10.8)
[2024-01-12 07:26] LABS: Blood Urea Nitrogen 23 mg/dl (7-17); Calcium 9.1 mg/dl (8.4-10.2); Carbon Dioxide 23 mmol/L (22-30); Chloride 105 mmol/L (98-107); Estimated Creatinine Clearance 22 ml/min; Glucose 92 mg/dl (70-99); Magnesium 2.5 mg/dl (1.6-2.3); Potassium 4.7 mmol/L (3.5-5.1); Sodium 139 mmol/L (135-145); eGFR 48.33
[2024-01-12 08:02] LABS: TSH Reflex To Free T4 2.51 uIU/ml (0.47-4.68)
[2024-01-12] MEDS: AZULFIDINE 500 MG PO ×2 (08:35→21:29)
[2024-01-12] MEDS: ELIQUIS 2.5 MG PO ×2 (08:35→21:36)
[2024-01-12] MEDS: CYMBALTA DELAYED RELEASE 60 MG PO (08:35)
[2024-01-12] MEDS: PROTONIX 40 MG PO (08:35)
[2024-01-12] MEDS: FOLVITE 1 MG PO (08:35)
[2024-01-12] MEDS: KCL 20 MEQ PO (08:35)
[2024-01-12] MEDS: NORCO 5/325 1 TABLET PO ×2 (08:35→21:29)
[2024-01-12] MEDS: TOPROL XL 50 MG PO (08:35)
[2024-01-12] MEDS: LASIX 60 MG IV ×2 (08:40→15:39)
--- NOTE | 2024-01-12 09:16 | W.PN.CARDCBS ---
Addendum entered and electronically signed by Seamus Andrade MD 01/12/24 16:17:
Attending addendum: Patient seen and examined. PA note reviewed and findings confirmed by me. Dr. Hong and patients two daughters present for discussion. She remains in atrial fibrillation. Family feels she has received Eliquis at [facility]
bid for at least the past 6 weeks or so since initiation or OAC 11/2023. She receives medications and is supervised when taking. She remains in atrial fibrillation and may benefit from maintaining SR.
Plan:
-Start amiodarone 400mg now then 200mg tid starting in am
-NPO in am
-Planned cardioversion with no AMINA given duration of OAC
-She was on aspirin on admission. Not sure she needs aspirin chronically given elevated bleeding risks in this frail 88 y/o female on steroids. Will discontinue given no coronary stent in the last 12 months
-Continue GI prophylaxis for similar reasons
Original Note:
Today's Communication / Plan
-
CV in AM
Hold Lasix in AM and follow Cre
Added amiodarone
Impression / Plan
-
PCP: [facility]
Paperhanger: Dr. Alexia Medina
Impression:
Acute on chronic HFpEF
Persistent atrial fibrillation
Chronic Eliquis OAC since 11/25/23
CAD
s/p CABG x2 PINEDA to LAD, SVG to OM 11/27/16s/p bioprosthetic AVR 11/27/16
h/o right sided pleural effusion and s/p thoracentesis for 450 ml 06/23/22
Hypertension
Hypercholesterolemia
Chronic lower extremity edema with venous stasis wounds/ulcers followed by wound care
h/o PE with minimal clot burden (2 small filling defects of the subsegmental vessel supplying the lingula) 12/09/16
Arthritis
Anemia
Linq monitor
h/o Colon resection 2011
Cataract extraction
Moderate MR (at least) with mild mitral stenosis
Moderate to severe TR
Lexiscan nuclear stress test 02/23/2019: Moderate fixed defect in the basal, anterior lateral and mid anterior lateral segment consistent with prior infarction, EF 68% no ischemia
Echo 05/19/2022: EF 60 to 65%.� Mild LVH.� Moderate MR.� Bioprosthetic aortic valve peak/mean gradient 16/7 mmHg.� Moderate TR, PAP 45 to 47 mmHg
Echo 11/24/23: Small left ventricle, EF 60-65% normal RV, severely dilated atria, MAC, mild mitral stenosis, mean gradient 4 mmHg, moderate MR, bioprosthetic aortic valve, peak/mean gradient 10/6 mmHg, moderate to severe TR, pulmonary artery pressure
42 mmHg systolic
Plan:
-Patient with 3 lbs diuresis overnight after Bumex 2 mg IV x1 given in [facility] 01/11/24. Changed to Lasix 60 mg IV BID as this worked well for diuresis last admission. Cre up to 1.1. Will hold Lasix in AM
-Dry weight last discharge was 110 lbs
-Patient remains in Afib with is persistent and HRs are 95-105. Last admission plan was for rate control. Talked with patient and family in the room on 01/12/24 and reviewed option of rhythm control including CV. Patient does not require AMINA because
she has been on Eliquis since 11/25/23. CV scheduled for 01/13/24
-Toprol XL dose increased to 50 mg BID this admission
-Will add amiodarone 400 mg now and then 200 mg TID starting in AM. Talked about risks vs benefits of adding amiodarone.
-Troponin is in the normal range at 0.032. Patient is s/p CABG x 2 PINEDA to LAD, SVG to OM 11/27/16
-Patient with mod MR and mild MS by last echo. Patient is likely not a candidate for MitraClip given MS.
HPI: Patient came to [facility] after outpatient cardiology office visit today due to concern for acute HF and cardiology has been consulted. Patient was just admitted to 11/23/23 until 11/30/23 with acute HF and recurrence of paroxysmal Afib. This was
the first documented recurrence of Afib since CABG in 2017. Last admission there was consideration of rate control vs rhythm control strategies and due to increased risk of AMINA the plan was rate control and initiation of OAC. Patient was then
diuresed as low as 110 lbs on day of discharge 11/30/23. Patient was discharged on torsemide 40 mg BID. Patient was seen in the cardiology office today and weight was 113.6 lbs. Patient also noted to be edematous and somnolent, she is usually
talkative and interactive during cardiology office visits. There was concern for acute on chronic HF and so patient was asked to go to [facility] for further evaluation and possible admission.
Progress Note - Paperhanger
Subjective
Date of Service: January 12, 2024
Less SOB
Objective
Labs:
01/12/24 06:23
01/12/24 06:23
Labs
Hgb 13.3 g/dL (12.0-16.0) 01/12/24 06:23
Hct 39.6 % (37.0-47.0) 01/12/24 06:23
Plt Count 258 10^3/uL (130-400) 01/12/24 06:23
Sodium 139 mmol/L (135-145) 01/12/24 06:23
Potassium 4.7 mmol/L (3.5-5.1) 01/12/24 06:23
BUN 23 mg/dl (7-17) H 01/12/24 06:23
Creatinine 1.1 mg/dL (0.6-1.0) H 01/12/24 06:23
Glucose 92 mg/dl (70-99) 01/12/24 06:23
Troponins
01/11/24 01/11/24
13:49 14:47
Troponin I Cancelled 0.032
Vital Signs and I&O:
Vital Signs
Temp Pulse Resp BP Pulse Ox
97.8 F 78 17 118/78 96
01/12/24 07:51 01/12/24 07:51 01/12/24 07:51 01/12/24 07:51 01/12/24 07:51
Vital Signs
Temp Pulse Resp BP Pulse Ox
97.8 F 78 17 118/78 96
01/12/24 07:51 01/12/24 07:51 01/12/24 07:51 01/12/24 07:51 01/12/24 07:51
Intake & Output
01/10/24 01/11/24 01/12/24 01/13/24
06:59 06:59 06:59 06:59
Intake Total 120 / 120
Balance 120 / 120
Physical Exam
Physical Exam
GEN: AAOx3
HEENT: MMM
LUNGS: No audible wheeze
CV: Afib on tele
ABD: ND
EXT: Wearing B/L compression hose. +1-2 B/L LE edema.
NEURO: Gross non-focal
SKIN: No rash
--- NOTE | 2024-01-12 10:21 | W.PN.HOSP.TC ---
Today's Communication/Plan
-
CW Diuresis and follow HR on tele
Check ambulatory pulse ox
Assessment / Plan
Assessment / Plan
Acute on Chronic HFpEF
-Not hypoxic. Asymptomatic without shortness of breath at rest. Weight is 110 pounds which is close to her baseline.
-Continue iv diuresis per cards
-Monitor Is&Os and Daily Weights
- Optimize HR
- Patient apparently had a symptom of sluggishness and fatigue. Patient afebrile and no focal symptoms of infection. Normal white count noted.TSH normal.No metabolic disturbances . Checked VBG to make sure there is no ventilatory issues from
heart failure- Shows no evidence of respiratory acidosis. Suspect may be related to CHF. Check ambulatory pulse ox.
- Pt today without complaints.
Atrial Fibrillation- HR in low 100's
-Continue metoprolol ;optimize HR control
-Continue Eliquis
Coronary Artery Disease s/p CABG
-Continue aspirin
Hyperlipidemia
-Continue atorvastatin
Ulcerative Colitis
-Continue prednisone and sulfasalazine
Chronic Constipation
-Continue Senna and Metamucil
-Patient uses [facility] as outpatient
Spinal Stenosis
-Continue Cymbalta and Hydrocodone
GERD
-Continue Protonix
Hx Aortic Stenosis s/p Bioprosthetic Aortic Valve Replacement
Hx Pulmonary Embolism, provoked following AVR
DVT proph: Eliquis
Code Status: DNR
Anticipated Discharge: Today
Subjective/Interval History
-
Date of Service: January 12, 2024
Patient hard of hearing. Able to hear me when voice raised and speak slowly.
She feels better today. Denies any shortness of breath, chest pain or palpitations.
Having her breakfast without issues. Denies any nausea vomiting.
Objective Data
-
Labs:
Laboratory Results
01/12/24
06:23
WBC 9.2
Hgb 13.3
Hct 39.6
Plt Count 258
Sodium 139
Potassium 4.7
Chloride 105
Carbon Dioxide 23
BUN 23 H
Creatinine 1.1 H
Glucose 92
Calcium 9.1
Vital Signs:
Vital Signs
Temp Pulse Resp BP Pulse Ox
97.8 F 78 17 118/78 96
01/12/24 07:51 01/12/24 07:51 01/12/24 07:51 01/12/24 07:51 01/12/24 07:51
I&O
01/11/24 01/12/24 01/13/24
06:59 06:59 06:59
Intake Total 120 / 120 240 / 240
Balance 120 / 120 240 / 240
Review of Systems
-
Unable to obtain full review of systems at this time due to: Other (hearing impairment)
Constitutional: Denies Fever
Respiratory: Denies Cough
Neuro: Denies Dizzy
Physical Exam
-
General: No Apparent Distress
HEENT: Moist Mucous Membranes
Respiratory: Clear to Auscultation and Non Labored Respirations; Negative Accessory Resp Muscle Use
Cardiac: S1/S2, Irregular Rhythm and Tachycardic (low 100's)
Neuro: Awake, Alert and Oriented
Psych: Calm
Data Reviewed
-
Labs: Labs Reviewed by me
--- NOTE | 2024-01-12 10:54 | CM ---
Addendum entered by Jael Cruz 01/12/24 12:45:
Met with daughter bedside.
Agrees to back to [facility] when stable.
IMM completed.
Daughter will transport
Addendum entered by Jael Cruz 01/12/24 12:22:
Left VM for daughter Anabella.
Addendum entered by Jael Cruz 01/12/24 11:20:
TC to [facility], she said they can accept patient back today.
Reviewed PT note with Sp.
[facility]
Report# [phone]

Original Note:
Spoke with patient's bedside and reviewed chart.
Attempted to reach daughter Anabella will try back.
Patient from [facility].
Patient requires assist with ADLs and ambulates with a RW
The aides push mobilize her in her w/c to the dining [facility]inter[facility] or longer distances.
PT recommending home with therapy.
Will need to review therapy notes with [facility].
VN - [facility]
SNF - prior [facility]
PCP- [facility]
Pharmacy - [address], [place]
The patient's daughter in law is Hal.
Plan: home with therapy.
[2024-01-12] MEDS: PACERONE 400 MG PO (15:39)
[2024-01-12] MEDS: DELTASONE 5 MG PO (15:39)
[2024-01-12] MEDS: ASPIR LOW (ENTERIC COATED) 81 MG PO (15:39)
[2024-01-12] MEDS: METAMUCIL, KONSYL 1 PACKET PO (21:29)
[2024-01-12] MEDS: SENOKOT 8.59999999999999964 MG PO (21:29)
[2024-01-12] MEDS: LIPITOR 40 MG PO (21:29)
[2024-01-13 03:55] VITALS: BP 129/89
[2024-01-13 07:42] VITALS: BP 117/68
[2024-01-13] MEDS: AZULFIDINE 500 MG PO ×2 (08:18→21:06)
[2024-01-13] MEDS: FOLVITE 1 MG PO (08:18)
[2024-01-13] MEDS: PROTONIX 40 MG PO (08:18)
[2024-01-13] MEDS: ELIQUIS 2.5 MG PO ×2 (08:18→21:06)
[2024-01-13] MEDS: KCL 20 MEQ PO (08:18)
[2024-01-13] MEDS: CYMBALTA DELAYED RELEASE 60 MG PO (08:19)
[2024-01-13] MEDS: PACERONE 200 MG PO ×3 (08:19→21:06)
[2024-01-13] MEDS: NORCO 5/325 1 TABLET PO ×2 (08:19→21:06)
[2024-01-13 10:27] LABS: Blood Urea Nitrogen 25 mg/dl (7-17); Calcium 9.2 mg/dl (8.4-10.2); Carbon Dioxide 26 mmol/L (22-30); Chloride 102 mmol/L (98-107); Estimated Creatinine Clearance 18 ml/min; Glucose 96 mg/dl (70-99); Potassium 4.5 mmol/L (3.5-5.1); Sodium 138 mmol/L (135-145); eGFR 39.55
--- NOTE | 2024-01-13 12:09 | CM ---
Addendum entered by Jael Cruz 01/13/24 16:09:
[facility]
fax# [phone]
Original Note:
Patient back from cardioversion.
Daughter bedside.
Plan:back to [facility] when stable.
[facility]
Report# [phone]
[2024-01-13] MEDS: TYLENOL 650 MG PO (12:28)
[2024-01-13 13:25] VITALS: BMI 25.9
--- NOTE | 2024-01-13 14:38 | W.PN.HOSP.TC ---
Today's Communication/Plan
-
Hold iv lasix till reviewed by Cards
DC in am
Assessment / Plan
Assessment / Plan
Acute on Chronic HFpEF
-Not hypoxic. Asymptomatic without shortness of breath at rest. Weight is 107 pounds which is the lowest she has been ever.
-Elevated creatinine noted. hold further IV diuresis till seen by cardiology.
-Monitor Is&Os and Daily Weights
- Optimize HR -now in SR after CV
- Patient apparently had a symptom of sluggishness and fatigue. Patient afebrile and no focal symptoms of infection. Normal white count noted.TSH normal.No metabolic disturbances . Checked VBG to make sure there is no ventilatory issues from
heart failure- Shows no evidence of respiratory acidosis. Suspect may be related to CHF. O2 is ok at rest and with exertion.
Atrial Fibrillation-
-S/p cardioversion today. Currently in sinus rhythm.
Patient initiated on amiodarone on this admission. Continue the beta-ruddy.
-Continue Eliquis
Coronary Artery Disease s/p CABG
-Continue aspirin
Hyperlipidemia
-Continue atorvastatin
Ulcerative Colitis
-Continue prednisone and sulfasalazine
Chronic Constipation
-Continue Senna and Metamucil
-Patient uses [facility] as outpatient
Spinal Stenosis
-Continue Cymbalta and Hydrocodone
GERD
-Continue Protonix
Hx Aortic Stenosis s/p Bioprosthetic Aortic Valve Replacement
Hx Pulmonary Embolism, provoked following AVR
DVT proph: Eliquis
Code Status: DNR
Discussed with daughters at bedside
DC in a.m. if remains stable.
Anticipated Discharge: Within 24 hours
Subjective/Interval History
-
Date of Service: January 13, 2024
Back from cardioversion. In sinus rhythm.
Denies any shortness of breath or chest pain currently. No nausea or vomiting.
Objective Data
-
Labs:
Laboratory Results
01/13/24
08:06
Sodium 138
Potassium 4.5
Chloride 102
Carbon Dioxide 26
BUN 25 H
Creatinine 1.3 H
Glucose 96
Calcium 9.2
Vital Signs:
Vital Signs
Temp Pulse Resp BP Pulse Ox
97.8 F 79 24 117/68 100
01/13/24 07:42 01/13/24 07:42 01/13/24 07:42 01/13/24 07:42 01/13/24 07:42
I&O
01/12/24 01/13/24 01/14/24
06:59 06:59 06:59
Intake Total 120 / 120 620 / 620
Balance 120 / 120 620 / 620
Review of Systems
-
EENT: Denies Sore Throat
Respiratory: Denies Cough
Neuro: Denies Dizzy
Physical Exam
-
General: No Apparent Distress
HEENT: Moist Mucous Membranes
Respiratory: Clear to Auscultation; Negative Wheezes or Crackles
Cardiac: Regular Rhythm (sr) and S1/S2
Neuro: AO x 3
Data Reviewed
-
Labs: Labs Reviewed by me
[2024-01-13] MEDS: DELTASONE 5 MG PO (15:08)
[2024-01-13 15:34] VITALS: BP 111/83
--- NOTE | 2024-01-13 16:07 | W.PN.CARDCBS ---
Addendum entered and electronically signed by Seamus Andrade MD 01/13/24 16:17:
Attending addendum: Patient seen and examined. Discussed clinical plan with daughter who was present in the room.
s/p CV to NSR
-Continue amiodarone load 200 mg tid with plans to discharge tomorrow and treat with 200mg bid for 2 weeks then switch to 200mg daily
-Her weight is below baseline
-She can probably be discharged tomorrow
-Follow up with Alexia Medina as scheduled
Original Note:
Today's Communication / Plan
-
Back in SR, cont amio load
Cont Eliquis
Lasix IV on hold for MARIANA this AM, pending Cre tomorrow AM will restart outpatient dose of torsemide
Impression / Plan
-
PCP: [facility]ana Crain
Feed Weigher: Dr. Alexia Medina
Impression:
Acute on chronic HFpEF
Persistent atrial fibrillation
s/p successful CV 01/13/24
Chronic Eliquis OAC since 11/25/23
CAD
s/p CABG x2 PINEDA to LAD, SVG to OM 11/27/16s/p bioprosthetic AVR 11/27/16
h/o right sided pleural effusion and s/p thoracentesis for 450 ml 06/23/22
Hypertension
Hypercholesterolemia
Chronic lower extremity edema with venous stasis wounds/ulcers followed by wound care
h/o PE with minimal clot burden (2 small filling defects of the subsegmental vessel supplying the lingula) 12/09/16
Arthritis
Anemia
Linq monitor
h/o Colon resection 2011
Cataract extraction
Moderate MR (at least) with mild mitral stenosis
Moderate to severe TR
Lexiscan nuclear stress test 02/23/2019: Moderate fixed defect in the basal, anterior lateral and mid anterior lateral segment consistent with prior infarction, EF 68% no ischemia
Echo 05/19/2022: EF 60 to 65%.� Mild LVH.� Moderate MR.� Bioprosthetic aortic valve peak/mean gradient 16/7 mmHg.� Moderate TR, PAP 45 to 47 mmHg
Echo 11/24/23: Small left ventricle, EF 60-65% normal RV, severely dilated atria, MAC, mild mitral stenosis, mean gradient 4 mmHg, moderate MR, bioprosthetic aortic valve, peak/mean gradient 10/6 mmHg, moderate to severe TR, pulmonary artery pressure
42 mmHg systolic
Plan:
-Patient had a successful CV on 01/13/24.
-Cont amiodarone 200 mg TID for now and then transition to amiodarone 200 mg BID for 2 weeks then reduce to 200 mg daily thereafter.
-Cont higher dose Toprol XL 50 mg BID as well.
-Hgb stable on Eliquis 2.5 mg BID (age 88, wt 48 kg)
-Weight is down 6 lbs with Bumex IV diuresis initially and then Lasix 60 mg IV BID diuresis. Cre up to 1.3 on 01/13/24 and so Lasix IV held starting 01/13/24 AM. Pending Cre in AM will restart outpatient dose of torsemide 40 mg BID.
-Dry weight last discharge was 110 lbs and patient weighs 107 lbs on 01/13/24
-Troponin is in the normal range at 0.032. Patient is s/p CABG x 2 PINEDA to LAD, SVG to OM 11/27/16
-Patient with mod MR and mild MS by last echo. Patient is likely not a candidate for MitraClip given MS.
-Will arrange cardiology follow up
HPI: Patient came to [facility] after outpatient cardiology office visit today due to concern for acute HF and cardiology has been consulted. Patient was just admitted to 11/23/23 until 11/30/23 with acute HF and recurrence of paroxysmal Afib. This was
the first documented recurrence of Afib since CABG in 2017. Last admission there was consideration of rate control vs rhythm control strategies and due to increased risk of AMINA the plan was rate control and initiation of OAC. Patient was then
diuresed as low as 110 lbs on day of discharge 11/30/23. Patient was discharged on torsemide 40 mg BID. Patient was seen in the cardiology office today and weight was 113.6 lbs. Patient also noted to be edematous and somnolent, she is usually
talkative and interactive during cardiology office visits. There was concern for acute on chronic HF and so patient was asked to go to [facility] for further evaluation and possible admission.
Progress Note - Feed Weigher
Subjective
Date of Service: January 13, 2024
She was in the chair for a while, but now tired and taking a nap in bed
Objective
Labs:
01/12/24 06:23
01/13/24 08:06
Labs
Hgb 13.3 g/dL (12.0-16.0) 01/12/24 06:23
Hct 39.6 % (37.0-47.0) 01/12/24 06:23
Plt Count 258 10^3/uL (130-400) 01/12/24 06:23
Sodium 138 mmol/L (135-145) 01/13/24 08:06
Potassium 4.5 mmol/L (3.5-5.1) 01/13/24 08:06
BUN 25 mg/dl (7-17) H 01/13/24 08:06
Creatinine 1.3 mg/dL (0.6-1.0) H 01/13/24 08:06
Glucose 96 mg/dl (70-99) 01/13/24 08:06
Troponins
01/11/24 01/11/24
13:49 14:47
Troponin I Cancelled 0.032
Vital Signs and I&O:
Vital Signs
Temp Pulse Resp BP Pulse Ox
97.8 F 79 24 117/68 100
01/13/24 07:42 01/13/24 07:42 01/13/24 07:42 01/13/24 07:42 01/13/24 07:42
Vital Signs
Temp Pulse Resp BP Pulse Ox
97.8 F 79 24 117/68 100
01/13/24 07:42 01/13/24 07:42 01/13/24 07:42 01/13/24 07:42 01/13/24 07:42
Intake & Output
01/11/24 01/12/24 01/13/24 01/14/24
06:59 06:59 06:59 06:59
Intake Total 120 / 120 620 / 620
Balance 120 / 120 620 / 620
Physical Exam
Physical Exam
GEN: AAOx3
HEENT: MMM
LUNGS: No audible wheeze
CV: SR on tele
ABD: ND
EXT: Wearing B/L compression hose. +1 B/L LE edema.
NEURO: Gross non-focal
SKIN: No rash
[2024-01-13 20:09] VITALS: BP 117/78
[2024-01-13] MEDS: SENOKOT 8.59999999999999964 MG PO (21:06)
[2024-01-13] MEDS: METAMUCIL, KONSYL 1 PACKET PO (21:06)
[2024-01-13] MEDS: LIPITOR 40 MG PO (21:06)
[2024-01-13 23:17] VITALS: BP 127/76
[2024-01-14 04:00] VITALS: BP 116/73
[2024-01-14 05:27] VITALS: BMI 26.6
[2024-01-14 05:52] VITALS: BP 134/91
--- NOTE | 2024-01-14 06:12 | W.PN.UPDATE ---
Update Note
Progress Note Update
RN reports unwitnessed fall. Per RN pt was found on floor beside bed.
Per pt, she was trying to go to [facility] and thought 'she could make it by herself.'
Pt denied injuries. JASMINE. Denies hitting head. States she landed on right hip but no visible bruising or injuries.
PT aaox3
Since pt denies hitting head will forgo CT head but if there are any neuro changes- obtain Ct head
Pt advised to please ring for assistance going forward. Pt in agreement
[2024-01-14 07:30] VITALS: BP 116/70
[2024-01-14] MEDS: PACERONE 200 MG PO (08:47)
[2024-01-14] MEDS: FOLVITE 1 MG PO (08:48)
[2024-01-14] MEDS: NORCO 5/325 1 TABLET PO (08:48)
[2024-01-14] MEDS: AZULFIDINE 500 MG PO (08:48)
[2024-01-14] MEDS: PROTONIX 40 MG PO (08:48)
[2024-01-14] MEDS: ELIQUIS 2.5 MG PO (08:48)
[2024-01-14] MEDS: CYMBALTA DELAYED RELEASE 60 MG PO (08:48)
--- NOTE | 2024-01-14 09:01 | W.PN.CARDCBS ---
Today's Communication / Plan
-
Creat improved, at dry weight
Restart torsemide 40mg BID
Remains in SR, continue amiodarone
Restart toprol
Continue Eliquis
Follow up arranged
Impression / Plan
-
PCP: Santana Crain
Receptionist Secretary: Dr. Alexia Medina
Impression:
Acute on chronic HFpEF
Persistent atrial fibrillation
s/p successful CV 01/13/24
Chronic Eliquis OAC since 11/25/23
CAD
s/p CABG x2 PINEDA to LAD, SVG to OM 11/27/16
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
h/o right sided pleural effusion and s/p thoracentesis for 450 ml 06/23/22
Hypertension
Hypercholesterolemia
Chronic lower extremity edema with venous stasis wounds/ulcers followed by wound care
h/o PE with minimal clot burden (2 small filling defects of the subsegmental vessel supplying the lingula) 12/09/16
Arthritis
Anemia
Linq monitor
h/o Colon resection 2011
Cataract extraction
Moderate MR (at least) with mild mitral stenosis
Moderate to severe TR
Lexiscan nuclear stress test 02/23/2019: Moderate fixed defect in the basal, anterior lateral and mid anterior lateral segment consistent with prior infarction, EF 68% no ischemia
Echo 05/19/2022: EF 60 to 65%.� Mild LVH.� Moderate MR.� Bioprosthetic aortic valve peak/mean gradient 16/7 mmHg.� Moderate TR, PAP 45 to 47 mmHg
Echo 11/24/23: Small left ventricle, EF 60-65% normal RV, severely dilated atria, MAC, mild mitral stenosis, mean gradient 4 mmHg, moderate MR, bioprosthetic aortic valve, peak/mean gradient 10/6 mmHg, moderate to severe TR, pulmonary artery pressure
42 mmHg systolic
Plan:
-Presented with acute heart failure and atrial fibrillation.
-Underwent successful CV on 01/13/24. Remains in SR on review of telemetry. Brief episodes of atach noted overnight. No prolonged arrhythmia.
-Continues on amiodarone 200mg TID. Plan is to transition to 200mg BID for 2 weeks at discharge. Then will reduce to 200mg daily thereafter.
-Toprol dose increased to 50mg BID this admission, however then stopped. HR stable in the 80s and with episodes of atach noted on tele, would resume.
-Hgb stable on Eliquis 2.5 mg BID (age 88, wt 48 kg).
-Diuresed this admission and weight down to 110lbs 01/13 which is prior dry weight.
-Creat bumped to 1.3 on 01/12 and IV lasix was held. Creat improved, down to 1.2 01/13.
-Will resume OP dose of torsemide 40mg BID.
-Troponin is in the normal range at 0.032. Patient is s/p CABG x 2 PINEDA to LAD, SVG to OM 11/27/16
-Patient with mod MR and mild MS by last echo. Patient is likely not a candidate for MitraClip given MS.
-Cardiology follow up arranged.
HPI: Patient came to [facility] after outpatient cardiology office visit today due to concern for acute HF and cardiology has been consulted. Patient was just admitted to 11/23/23 until 11/30/23 with acute HF and recurrence of paroxysmal Afib. This was
the first documented recurrence of Afib since CABG in 2017. Last admission there was consideration of rate control vs rhythm control strategies and due to increased risk of AMINA the plan was rate control and initiation of OAC. Patient was then
diuresed as low as 110 lbs on day of discharge 11/30/23. Patient was discharged on torsemide 40 mg BID. Patient was seen in the cardiology office today and weight was 113.6 lbs. Patient also noted to be edematous and somnolent, she is usually
talkative and interactive during cardiology office visits. There was concern for acute on chronic HF and so patient was asked to go to [facility] for further evaluation and possible admission.
Progress Note - Receptionist Secretary
Subjective
Date of Service: January 14, 2024
No complaints this AM. Denies SOB or palpitations.
Objective
Labs:
01/12/24 06:23
Labs
Hgb 13.3 g/dL (12.0-16.0) 01/12/24 06:23
Hct 39.6 % (37.0-47.0) 01/12/24 06:23
Plt Count 258 10^3/uL (130-400) 01/12/24 06:23
Sodium 138 mmol/L (135-145) 01/13/24 08:06
Potassium 4.5 mmol/L (3.5-5.1) 01/13/24 08:06
BUN 25 mg/dl (7-17) H 01/13/24 08:06
Creatinine 1.3 mg/dL (0.6-1.0) H 01/13/24 08:06
Glucose 96 mg/dl (70-99) 01/13/24 08:06
Troponins
01/11/24 01/11/24
13:49 14:47
Troponin I Cancelled 0.032
Vital Signs and I&O:
Vital Signs
Temp Pulse Resp BP Pulse Ox
97 F 87 24 116/70 95
01/14/24 07:30 01/14/24 08:47 01/14/24 07:30 01/14/24 08:47 01/14/24 07:30
Vital Signs
Temp Pulse Resp BP Pulse Ox
97 F 87 24 116/70 95
01/14/24 07:30 01/14/24 08:47 01/14/24 07:30 01/14/24 08:47 01/14/24 07:30
Intake & Output
01/12/24 01/13/24 01/14/24 01/15/24
06:59 06:59 06:59 06:59
Intake Total 120 / 120 620 / 620 600 / 600
Balance 120 / 120 620 / 620 600 / 600
Physical Exam
Physical Exam
GEN: No distress, awake, alert, oriented x3
HEENT: supple, anicteric, mmm
LUNGS: CTA b/l, no wheezes/rales
CV: Reg, S1/S2, 1/6 murmur
EXT: No clubbing or cyanosis, trace edema b/l LE, compression hose in place
NEURO: Gross non-focal
SKIN: Warm, dry, no rash
[2024-01-14 09:17] LABS: Blood Urea Nitrogen 26 mg/dl (7-17); Calcium 9.3 mg/dl (8.4-10.2); Carbon Dioxide 28 mmol/L (22-30); Chloride 103 mmol/L (98-107); Estimated Creatinine Clearance 20 ml/min; Glucose 100 mg/dl (70-99); Potassium 5.1 mmol/L (3.5-5.1); Sodium 137 mmol/L (135-145); eGFR 43.54
[2024-01-14 11:11] VITALS: BP 126/76; PULSE 86; O2SAT 97
[2024-01-14 11:38] VITALS: BP 118/76
--- NOTE | 2024-01-14 11:41 | CM ---
Addendum entered by Jael Cruz 01/14/24 13:11:
IMM completed.
daughter will transport.
Original Note:
Plan:back to [facility] when stable.
[facility] [place]
Report# [phone]

[facility]
fax# [phone]
[facility]
fax# [phone]
--- NOTE | 2024-01-14 12:47 | W.PN.HOSP.TC ---
Today's Communication/Plan
-
DC
Assessment / Plan
Assessment / Plan
Acute on Chronic HFpEF
- Not hypoxic. Asymptomatic without shortness of breath at rest. Weight is 107 pounds which is the lowest she has been ever.
- Elevated creatinine noted, now improved holding diuretics.
-Cardiology input from today noted-switch to oral torsemide 40 mg twice daily on discharge
Atrial Fibrillation-
-S/p cardioversion 01/12. Remains in sinus rhythm.
Patient initiated on amiodarone on this admission. Continue the beta-ruddy.
-Continue Eliquis
Coronary Artery Disease s/p CABG
-Continue aspirin
Hyperlipidemia
-Continue atorvastatin
Ulcerative Colitis
-Continue prednisone and sulfasalazine
Chronic Constipation
-Continue Senna and Metamucil
-Patient uses Movantik as outpatient
Spinal Stenosis
-Continue Cymbalta and Hydrocodone
GERD
-Continue Protonix
Hx Aortic Stenosis s/p Bioprosthetic Aortic Valve Replacement
Hx Pulmonary Embolism, provoked following AVR
DVT proph: Eliquis
Code Status: DNR
Medically stable for DC
DW daughter Jennifer and went over the diagnosis, treatments and follow-up plan.
Total time of discharge 35 minutes
Anticipated Discharge: Today
Subjective/Interval History
-
Date of Service: January 14, 2024
Last night unwitnessed fall and the events noted.
Patient denies any joint pains since fall.
She is breathing better.
Patient is hard of hearing and things have to be written down on a white board.
Objective Data
-
Labs:
Laboratory Results
01/14/24
08:22
Sodium 137
Potassium 5.1
Chloride 103
Carbon Dioxide 28
BUN 26 H
Creatinine 1.2 H
Glucose 100 H
Calcium 9.3
Vital Signs:
Vital Signs
Temp Pulse Resp BP Pulse Ox
97.8 F 84 20 118/76 97
01/14/24 11:38 01/14/24 11:38 01/14/24 11:38 01/14/24 11:38 01/14/24 11:38
I&O
01/13/24 01/14/24 01/15/24
06:59 06:59 06:59
Intake Total 620 / 620 600 / 600
Balance 620 / 620 600 / 600
Review of Systems
-
Unable to obtain full review of systems at this time due to: Other (hard of hearing)
Respiratory: Denies Trouble Breathing
Cardiac: Denies Chest Pain
Abdomen/GI: Denies Nausea or Vomiting
Musculoskeletal: Denies Joint Pain
Neuro: Denies Dizzy
Physical Exam
-
General: No Apparent Distress
HEENT: Moist Mucous Membranes
Respiratory: Clear to Auscultation
Cardiac: Regular Rhythm (SR on monitor) and S1/S2
Musculoskeletal: Other (BL hip ROM painless)
Neuro: Awake, Alert and Oriented (oriented)
Psych: Calm
Data Reviewed
-
Labs: Labs Reviewed by me
--- NOTE | 2024-01-14 12:59 | W.DS.TRANS ---
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
-
Discharge Instructions:
Sleep Apnea Risk Low
Discharge Diagnosis/Procedures Cardioversion for persistent atrial fibrillation
01/13/24, acute heart failure preserved ejection
fraction
Diet 2 Gram Sodium,Restrict fluids to 64 oz
Activity Other activity
Driving Restrictions No driving for 24 hours
Bathing Restrictions None
Blood Work BMP in 1 week
Specialty Instructions Weigh Daily
Instructions:
Stand-Alone Forms: DC Instructions- Cath/EP Lab
Changes to Home Medications: Yes
Discharge Medications:
DC Medications w/original date entered in [employer]
folic acid 1 mg tablet 1 mg PO DAILY Supplement 11/26/16
atorvastatin 40 mg tablet 40 mg PO HS High cholesterol 12/09/16
duloxetine 60 mg capsule,delayed release 60 mg PO DAILY Mental Health/Anxiety 12/09/16
prednisone 5 mg tablet 5 mg PO DAILY@1600 inflammation 12/09/16
esomeprazole magnesium 40 mg capsule,delayed release (Nexium) 40 mg PO DAILY Gastrointestinal issue 06/22/22
naloxegol 12.5 mg tablet (Movantik) 12.5 mg PO DAILY opioid induced constipation 10/30/23
psyllium 1 packet PO HS Constipation ##0 10/30/23
sulfasalazine 500 mg tablet 500 mg PO BID Gastrointestinal issue 10/30/23
vit C 250 mg-vit E 90 mg-zinc 40 mg-copper 1 [id number] capsule (PreserVision AREDS-2) 1 cap PO BID Supplement 10/30/23
apixaban 2.5 mg tablet (Eliquis) 2.5 mg PO BID #0 tabs 11/30/23
hydrocodone 5 mg-acetaminophen 325 mg tablet 1 tab PO BID Pain #6 tabs 11/30/23
potassium chloride 20 mEq tablet,extended release(part/cryst) 20 meq PO DAILY #0 tabs 11/30/23
torsemide 20 mg tablet 40 mg (2 x 20 mg) PO BID@0800,1600 #0 tabs 11/30/23
sennosides 8.6 mg tablet (senna) 8.6 mg PO HS 01/11/24
amiodarone 200 mg tablet 200 mg PO BID #45 tabs 01/14/24
metoprolol succinate 50 mg tablet,extended release 24 hr 50 mg PO BID #60 tabs 01/14/24
Home Medication Changes
New medication-amiodarone
Change in medication-increase dose of metoprolol
Discontinued medication-aspirin
Pending Results: No
== END 2024-01-14 14:16 | disposition home or self-care (01) | DRG 291 ==
LOC: 4 WEST ACU 16:59
PROVIDERS: Internal Medicine; Physician Assistant Medical; ADMITTING PHYSICIAN Internal Medicine; EMERGENCY PHYSICIAN Emergency Medicine; FAMILY PHYSICIAN Family Medicine
PROC: 5A2204Z Restoration of Cardiac Rhythm, Single (ICD-10-PCS; 2024-01-13)
DX: I11.0 Hypertensive heart disease with heart failure (principal); I50.33 Acute on chronic diastolic (congestive) heart failure; I48.21 Permanent atrial fibrillation; K51.90 Ulcerative colitis, unspecified, without complications; E78.00 Pure hypercholesterolemia, unspecified; M48.00 Spinal stenosis, site unspecified; I25.10 Atherosclerotic heart disease of native coronary artery without angina pectoris; K59.09 Other constipation; K21.9 Gastro-esophageal reflux disease without esophagitis; M81.0 Age-related osteoporosis without current pathological fracture; D64.9 Anemia, unspecified; M19.90 Unspecified osteoarthritis, unspecified site; H91.90 Unspecified hearing loss, unspecified ear; I35.0 Nonrheumatic aortic (valve) stenosis; W06.XXXA Fall from bed, initial encounter; Y93.89 Activity, other specified; Y92.230 Patient room in hospital as the place of occurrence of the external cause; Z66 Do not resuscitate; Z95.1 Presence of aortocoronary bypass graft; Z95.3 Presence of xenogenic heart valve; Z86.711 Personal history of pulmonary embolism; Z91.048 Other nonmedicinal substance allergy status; Z79.01 Long term (current) use of anticoagulants; Z79.82 Long term (current) use of aspirin; Z79.52 Long term (current) use of systemic steroids; Z90.49 Acquired absence of other specified parts of digestive tract; Z86.73 Personal history of transient ischemic attack (TIA), and cerebral infarction without residual deficits
CPT/HCPCS: 71046; 80048; 80053; 82805; 83735; 83880; 84443; 84484; 85025; 85027; 87070; 92960; 93005; 94761; 96374; 96375; 97116; 97163; 97166; 99285

== ENCOUNTER 2024-01-15 10:15 | Emergency (ER) | payer MEDICARE, BC, SELFPAY ==
[2024-01-15 10:24] VITALS: BP 107/69
[2024-01-15 10:32] VITALS: BP 107/69
[2024-01-15 11:00] VITALS: BP 126/76
--- NOTE | 2024-01-15 11:14 | ED.GENMED ---
History of Present Illness
General
Chief Complaint: Swelling
Source: patient and family
Exam Limitations: none
Time Seen by Provider: 01/15/24 10:41
Travel History
Have you had any contact with someone who has COVID-19?: No
Do you have any symptoms of coronavirus? Fever > 100 degrees, chills, cough, shortness of breath, sore throat, loss of taste or smell, muscle aches, or headache?: No
History of Present Illness
History of Present Illness:
88-year-old female fell from a standing position. She was being stood up to get weighed.
Past History
Past History
ED Past Medical History: CAD, CHF, HTN, Hypercholesterolemia, Valvular disease and Other
ED Past Surgical History: Appendectomy, Cholecystectomy and Other
Social History
Tobacco: Non-smoker
Alcohol: None
Drug: None
Personal:
Living: [facility]
Employment: Retired
Family History
Family History: Other
Review of Systems
Review of Systems
All Other Systems: Not applicable
Respiratory: Reports no symptoms
Cardiac: Reports no symptoms
Phy Exam
Physical Exam
Physical Exam:
TRAUMA EXAM:
VITAL SIGNS: Vital signs reviewed, cooperative
DISTRESS: No active disease
EYES: Pupils reactive, no orbital trauma
NOSE: No deformity or epistaxis
FACE AND SCALP: No scalp or facial trauma, external canals no blood
NECK: Supple mild paracervical tenderness
BACK: Pelvis stable to compression
RESPIRATORY: No distress, no tender chest wall
CARDIAC: Regular rate and rhythm
ABDOMEN: Soft nontender bowel sounds normal
SKIN: Skin tear to the left elbow. 3 cm laceration right medial heel
EXTREMITIES: Mild ecchymosis to the right shoulder with chronic appearing arthritic swelling and decreased abduction. Chronic arthritis appearance to both lower extremities at the ankle. Mild tenderness to the right ankle. Achilles intact.
NEUROLOGICAL: Alert, oriented, no motor deficits
PSYCH: Mood affect normal
Scores
Heart Failure Risk
Heart Failure Risk Score: Not Applicable
Course
Orders/Labs/Results
Orders:
Orders
01/15/24 11:14
Tetanus/Diphth/Acelpertussis [Adacel] 0.5 ml IM .ONCE ONE
01/15/24 11:17
Foot, Right 3 View [CR Foot - Right Min 3 Views] Urgent
Comment:
Reason For Exam: trauma
Shoulder, Right 2 Views [CR Shoulder - Right Min 2 View] Urgent
Comment:
Reason For Exam: trauma
01/15/24 11:18
Cardiac Monitoring- Treatment ONCE
01/15/24 11:19
CT Cervical Spine W/o Iv Contr Urgent
Comment:
Reason For Exam: trauma
CT Head W/o Iv Contrast Urgent
Comment:
Reason For Exam: trauma
Vital Signs
Initial and Last Documented VS:
Initial Vital Signs
Temp Pulse Resp BP Pulse Ox
98.3 F 67 20 107/69 94
01/15/24 10:24 01/15/24 10:24 01/15/24 10:24 01/15/24 10:24 01/15/24 10:24
Last Documented Vital Signs
Temp Pulse Resp BP Pulse Ox
98.3 F 65 22 138/46 94
01/15/24 10:24 01/15/24 13:00 01/15/24 13:00 01/15/24 13:00 01/15/24 10:24
Procedures
Laceration Closure
Right Medial Foot:
Status of Wound: clean
Size of Wound in cm: 3
Description of Wound Edges: sharp
Preparation: cleaned with saline and cleaned with Betadine
Anesthesia: 1% Lidocaine
Revision/Debridement: minor revision
Wound exploration: explored to base- no FB
Type of Closure: single layer closure
Skin Closure Material: 5-0 nylon
Number of sutures: 5
*Radiology
Radiology exam reviewed: radiology read reviewed (Degenerative changes. No acute abnormalities)
*Pulse Oximetry
Patient hypoxic: no
*Cor[employer]ate Operations Compliance Manager Interpretation
Rate: normal
Interpretation: normal
Heart Rate: 70
Rhythm: sinus
*Critical Care Note
Total Time (30-74mins, 75-104mins- exclusive of procedures): Not Applicable
Update Note
Update Note:
Patient is remained stable. Discharged to follow-up
ED Attending Note
-
Portions of this chart may have been created with voice recognition software.� Occasional wrong word or��sound alike� substitutions may have occurred due to the inherent limitations of voice recognition software.
Discharge Plan
Departure
Patient Disposition: Home (Routine Discharge)
Date of Disposition: 01/15/24
Time of Disposition: 14:35
Patient with high blood pressure during this ER visit?: Yes
Discharge Problem:
Fall/foot laceration, Left elbow abrasion, Anticoagulated, Shoulder contusion
Instructions: Wound Care (DC), Contusion (DC), Laceration Repair With Stitches (DC)
Prescriptions:
No Action
folic acid 1 MG tablet
1 mg PO DAILY
atorvastatin 40 MG tablet
40 mg PO HS
prednisone 5 MG tablet
5 mg PO DAILY@1600
duloxetine 60 MG capsule,delayed release(DR/EC)
60 mg PO DAILY
esomeprazole magnesium [Nexium] 40 mg Capsule,Delayed Release(Dr/Ec)
40 mg PO DAILY
psyllium Packet
1 packet PO HS Qty: 0
PreserVision AREDS-2 250-90-40-1 mg Capsule
1 cap PO BID
Movantik 12.5 mg Tablet
12.5 mg PO DAILY
sulfasalazine 500 MG tablet
500 mg PO BID
torsemide 20 mg Tablet
40 mg PO BID@0800,1600 Qty: 0 0RF
potassium chloride 20 mEq Tablet,Er Particles/Crystals
20 meq PO DAILY Qty: 0 0RF
Eliquis 2.5 mg Tablet
2.5 mg PO BID Qty: 0 0RF
hydrocodone-acetaminophen 5-325 mg tablet
1 tab PO BID Qty: 6 0RF
sennosides [senna] 8.6 mg Tablet
8.6 mg PO HS
amiodarone 200 mg tablet
200 mg PO BID Qty: 45 0RF
Rx Instructions:
BID for 2 weeks and then once a day
aspirin 81 mg Tablet,Delayed Release (Dr/Ec)
81 mg PO DAILY@1600
metoprolol succinate 25 mg tablet extended release 24 hr
25 mg PO HS
metoprolol succinate 50 mg tablet extended release 24 hr
50 mg PO DAILY
Rx Instructions:
dose increased on this admission
Referrals:
Santana Crain DO [Family Provider] - Follow up in 2-3 days
Activity Restrictions/Additional Instructions:
Change dressings daily.
Suture removal in about a week
Interventions
Interventions:
*Risk Screen - Suicide Last Done: 01/15/24 10:54
*General Assessment Last Done: 01/15/24 10:54
ED- Fall Risk Assessment Last Done: 01/15/24 10:55
ED- Cardiac Assessment Last Done: 01/15/24 10:48
ED-Musculoskeletal Assessment Last Done: 01/15/24 10:48
ED- Pulmonary Assessment Last Done: 01/15/24 10:48
ED-Skin Assessment Last Done: 01/15/24 10:48
Discharge Date and Time
Print Language: SLOVENIAN
[2024-01-15 12:00] VITALS: BP 112/62
[2024-01-15 13:00] VITALS: BP 138/46
[2024-01-15 14:40] VITALS: BP 126/65
== END 2024-01-15 15:03 | disposition home or self-care (01) ==
LOC: EMR 10:15
PROVIDERS: EMERGENCY PHYSICIAN Emergency Medicine; FAMILY PHYSICIAN Family Medicine
DX: S91.311A Laceration without foreign body, right foot, initial encounter (principal); S40.011A Contusion of right shoulder, initial encounter; S50.312A Abrasion of left elbow, initial encounter; W18.30XA Fall on same level, unspecified, initial encounter; I25.10 Atherosclerotic heart disease of native coronary artery without angina pectoris; I11.0 Hypertensive heart disease with heart failure; I50.9 Heart failure, unspecified; E78.00 Pure hypercholesterolemia, unspecified; I38 Endocarditis, valve unspecified; Z90.49 Acquired absence of other specified parts of digestive tract; Z79.01 Long term (current) use of anticoagulants; Z79.82 Long term (current) use of aspirin; Z91.048 Other nonmedicinal substance allergy status
CPT/HCPCS: 99285; 12002; 70450; 72125; 73030; 73630

== ENCOUNTER 2024-01-17 02:15 | Emergency (ER) | payer MEDICARE, BC, SELFPAY ==
[2024-01-17 02:17] VITALS: BP 150/92
[2024-01-17 02:48] LABS: % Basophils 0.2 % (0-2); % Eosinophils 0.7 % (0-6); % Immature Granulocytes 0.3 % (0-0.5); % Lymphocytes 8.4 % (20.5-51.1); % Monocytes 8.3 % (1.7-9.3); % Neutrophils 82.1 % (42.2-75.2); Absolute Eosinophils 0.1 10^3/uL (0-0.7); Absolute Lymphocytes 0.9 10^3/uL (1.2-3.4); Absolute Monocytes 0.9 10^3/uL (0.1-0.6); Absolute Neutrophils 8.7 10^3/uL (1.4-6.5); Hematocrit 37.3 % (37.0-47.0); Hemoglobin 12.6 g/dL (12.0-16.0); Mean Corp Hgb Conc. 33.8 g/dL (33.0-37.0); Mean Corpuscular Hgb 30.8 pg (27.0-31.0); Mean Corpuscular Volume 91.2 fL (81.0-99.0); Mean Platelet Volume 9.6 fL (7.4-10.4); Nucleated Red Blood Cells % 0 %; Platelet Count 299 10^3/uL (130-400); Red Blood Cell Count 4.09 10^6/uL (4.20-5.40); Red Cell Dist. Width 13.6 % (11.5-14.5); White Blood Cell Count 10.6 10^3/uL (4.8-10.8)
[2024-01-17 03:00] VITALS: BP 115/63
[2024-01-17 03:10] LABS: ALT (SGPT) 22 U/L (0-35); AST (SGOT) 35 U/L (14-36); Albumin 3.7 g/dl (3.5-5.0); Alkaline Phosphatase 82 U/L (38-126); Blood Urea Nitrogen 16 mg/dl (7-17); Calcium 8.8 mg/dl (8.4-10.2); Carbon Dioxide 27 mmol/L (22-30); Chloride 102 mmol/L (98-107); Glucose 121 mg/dl (70-99); Magnesium 1.8 mg/dl (1.6-2.3); Potassium 3.9 mmol/L (3.5-5.1); Sodium 137 mmol/L (135-145); Total Bilirubin 0.6 mg/dl (0.2-1.3); Total Protein 6.2 g/dl (6.3-8.2); eGFR > 60.00
[2024-01-17 03:23] LABS: NT-proBNP 4730 pg/ml
[2024-01-17 03:30] LABS: Urine Albumin Trace (Neg - Trace); Urine Bilirubin Negative (Negative); Urine Color Yellow; Urine Glucose Negative (Negative); Urine Ketone Negative (Negative); Urine Leukocyte 2+ (Negative); Urine Nitrite Positive (Negative); Urine Occult Blood Negative (Negative); Urine Urobilinogen Negative (Neg - 1+)
[2024-01-17 03:31] LABS: Urine Character Slightly Cloudy (Clear)
[2024-01-17 03:38] LABS: Urine Bacteria Moderate (Negative); Urine Red Blood Cell None Seen /HPF (0-2); Urine White Cell 60-70 /HPF (0-5)
[2024-01-17 04:00] VITALS: BP 122/75
[2024-01-17] MEDS: OMNICEF 300 MG PO (04:12)
[2024-01-17 05:00] VITALS: BP 121/67
--- NOTE | 2024-01-17 09:05 | ED.GENMED ---
Addendum entered and electronically signed by Pacheco Ramsay PA-C 01/19/24 07:15:
Urine culture demonstrates greater than 100,000 colony-forming units of presumptive E. coli. Patient placed on Omnicef sensitivities pending
Original Note:
History of Present Illness
General
Chief Complaint: Fall
Source: patient and family
Exam Limitations: none
Time Seen by Provider: 01/17/24 02:18
Nursing documentation reviewed up to this point in time: agreed with
Travel History
Have you had any contact with someone who has COVID-19?: No
Do you have any symptoms of coronavirus? Fever > 100 degrees, chills, cough, shortness of breath, sore throat, loss of taste or smell, muscle aches, or headache?: No
History of Present Illness
History of Present Illness:
88-year-old female with extensive medical history as documented notable for A-fib on Eliquis who presents to the emergency department from [facility] accompanied by family for evaluation after fall. Patient reports that she fell out of bed
and hit her head. She does not believe that she lost consciousness. Apparently found to have hematoma and minor laceration on the forehead and was sent to the emergency room for assessment. She has had multiple recent falls which is usual for her
according to family. She reports mild headache but denies any neck pain to me. Denies any chest pain or back pain. She denies any abdominal pain. She denies feeling nauseated. She denies any pain in her arms or legs. She had her tetanus
updated during recent visit.
Past History
Past History
ED Past Medical History: CAD, CHF, HTN, Hypercholesterolemia, Valvular disease and Other
ED Past Surgical History: Appendectomy, Cholecystectomy and Other
Social History
Tobacco: Non-smoker
Alcohol: None
Drug: None
Personal:
Living: longterm
Employment: Retired
Family History
Family History: Other
Review of Systems
Review of Systems
All Other Systems: ROS reviewed and negative except as documented in HPI and ROS
Respiratory: Denies trouble breathing
Cardiac: Denies chest pain
ABD/GI: Denies abdominal pain, nausea or vomiting
: Denies flank pain
Musculoskeletal: Denies joint pain, neck pain or back pain
Neurological: Reports headache; Denies dizzy
Phy Exam
Physical Exam
Physical Exam:
General: Awake, alert, hard of hearing; no acute distress
Head: Normocephalic, frontal hematoma with very minor 0.5 cm superficial laceration overlying
Eyes: Conjunctiva normal, pupils equal round and reactive to light bilaterally
Throat: Airway intact, tongue atraumatic
Neck: Trachea midline, no cervical spine tenderness
Back: No tenderness in the thoracic or lumbar spine
Lungs: Clear to auscultation bilaterally, no wheezing, rales, rhonchi
Heart: Regular rate and rhythm; no chest wall tenderness/rib tenderness
Abd: Soft, non distended, nontender to deep palpation
Neuro: Cranial nerves grossly intact, speech fluid, moving all extremities with no gross motor deficit
Skin: Patient has superficial laceration and hematoma to the forehead as above; she has old appearing abrasions to the left elbow as well as to the dorsum of the right hand and has healing foot laceration/abrasion as well
Extremities: No reproducible tenderness in the upper or lower extremities, allows for full passive range of motion in all joints of the upper and lower extremities without significant discomfort
Scores
Heart Failure Risk
Heart Failure Risk Score: Not Applicable
Heart Score for Chest Pain Patients
STEMI patient?: Not applicable
Withdrawal Assessment of Alcohol
Withdrawal Assessment Completed?: Not applicable
Course
Orders/Labs/Results
Orders:
Orders
01/17/24 02:19
Electrocardiogram (*1) Urgent
Reason for Study: Fatigue / Weakness
EKG- Treatment ONCE
01/17/24 02:32
Lidocaine/Epinephrine/Tetracai [Let Topical Anesthetic Gel] 3 ml .ROUTE .STK-MED ONE
01/17/24 02:35
Complete Blood Count/With Diff Urgent
Comprehensive Metabolic Panel Urgent
Magnesium Urgent
NT-proBNP Urgent
01/17/24 02:41
CT Cervical Spine W/o Iv Contr Urgent
Comment:
Reason For Exam: fall with frontal trauma
CT Head W/o Iv Contrast Urgent
Comment:
Reason For Exam: fall with frontal trauma
01/17/24 03:14
Urinalysis Reflex To Culture Urgent
Date Specimen was Collected: 01/17/24
Time Specimen was Collected: 02:49
Urine Microscopic Reflex Cult Urgent
Urine Culture Urgent
KARINA Source: U
Specimen Description:
Date Specimen was Collected: 01/17/24
Time Specimen was Collected: 02:49
01/17/24 04:02
Cefdinir [Omnicef] 300 mg PO NOW STA
Abnormal Lab Results
01/17/24 01/17/24
02:35 03:14
RBC 4.09 L 10^6/uL
(4.20-5.40)
Absolute Neuts (auto) 8.7 H 10^3/uL
(1.4-6.5)
Absolute Lymphs (auto) 0.9 L 10^3/uL
(1.2-3.4)
Absolute Monos (auto) 0.9 H 10^3/uL
(0.1-0.6)
Neutrophils % 82.1 H %
(42.2-75.2)
Lymphocytes % 8.4 L %
(20.5-51.1)
Glucose 121 H mg/dl
(70-99)
Total Protein 6.2 L g/dl
(6.3-8.2)
Urine Nitrite (Reflex) Positive A
(Negative)
Leukocyte Esterase Rfl 2+ A
(Negative)
Urine WBC (Reflex) 60-70 A /HPF
(0-5)
Urine Bacteria (Reflex) Moderate A
(Negative)
01/17/24 02:35
01/17/24 02:35
Vital Signs
Initial and Last Documented VS:
Initial Vital Signs
Temp Pulse Resp BP Pulse Ox
36.7 C 68 17 150/92 95
01/17/24 02:17 01/17/24 02:17 01/17/24 02:17 01/17/24 02:17 01/17/24 02:17
Last Documented Vital Signs
Temp Pulse Resp BP Pulse Ox
36.7 C 68 17 121/67 94
01/17/24 02:17 01/17/24 02:17 01/17/24 02:17 01/17/24 05:00 01/17/24 04:41
MDM/Problems Addressed
Differential Diagnosis Includes:
Fall with head trauma: Forehead hematoma, intracranial hemorrhage, cervical spine injury
Frequent falls: Deconditioning, anemia, electrolyte derangement, dysrhythmia, UTI, CHF, dehydration
MDM/Problems Addressed:
88-year-old female presents for evaluation of a fall out of bed today�has had increased falls recently which is unusual for her. Today has hematoma and minor laceration to the forehead. She is on Eliquis. Mental status normal. Vital signs
significant for mild hypertension normalized by my assessment otherwise within normal limits. Physical exam as above. Will plan to check basic screening labs given frequent falls including a CBC and a CMP, will send a urinalysis. Will check CT
head and cervical spine. Will check screening EKG. Will monitor closely reassess after the above. Tetanus is up-to-date. Will clean and repair forehead laceration.
Labs reviewed: CBC unremarkable, CMP no clinically significant abnormalities. Urinalysis is positive for infection with positive nitrites, bacteria and significant pyuria with no signs of contamination. This certainly could cause increased
frequency of falls recently. Will plan to treat with antibiotics�there is no sign of sepsis no clear indication for admission for this and patient/family comfortable with outpatient treatment. Awaiting CT head and cervical spine.
CT head and cervical spine negative for any acute posttraumatic injury. Irrigated and repaired forehead laceration with Steri-Strips/Dermabond. Stable for discharge on oral antibiotic for UTI.
Chronic conditions affecting care:
Atrial fibrillation on Eliquis which complicates her fall
Acute Exacerbation and/or Progression of Chronic Illness:
Acutely hypertensive resolved without intervention continue to monitor but no additional antihypertensive indicated at present
*Radiology
Radiology exam reviewed: radiology read reviewed
*Pulse Oximetry
Patient hypoxic: no
*EKG
Interpreted by ED Provider?: Yes
Heart Rate: 66
Rate: normal
Rhythm: sinus
[place]: normal axis
Interval: normal interval
QRS Pattern: right bundle branch block
Ischemia: other (Nonspecific T wave abnormalities)
*Critical Care Note
Total Time (30-74mins, 75-104mins- exclusive of procedures): Not Applicable
Data Reviewed
Review of Other/Old Records Reveals: Labs and Records
Source: patient, records and family
ED Attending Note
-
Portions of this chart may have been created with voice recognition software.� Occasional wrong word or��sound alike� substitutions may have occurred due to the inherent limitations of voice recognition software.
Discharge Plan
Departure
Patient Disposition: Home (Routine Discharge)
Date of Disposition: 01/17/24
Time of Disposition: 04:29
Patient with high blood pressure during this ER visit?: Yes
Discharge Problem:
Traumatic hematoma of forehead, Forehead laceration, Acute UTI
Instructions: Laceration Repair With Glue (DC), Head Injury in Adults (DC), Urinary Tract Infection, Adult ED
Prescriptions:
New
cefdinir 300 mg capsule
300 mg PO BID 7 Days Qty: 14 0RF
No Action
folic acid 1 MG tablet
1 mg PO DAILY
atorvastatin 40 MG tablet
40 mg PO HS
prednisone 5 MG tablet
5 mg PO DAILY@1600
duloxetine 60 MG capsule,delayed release(DR/EC)
60 mg PO DAILY
esomeprazole magnesium [Nexium] 40 mg Capsule,Delayed Release(Dr/Ec)
40 mg PO DAILY
psyllium Packet
1 packet PO HS Qty: 0
PreserVision AREDS-2 250-90-40-1 mg Capsule
1 cap PO BID
Movantik 12.5 mg Tablet
12.5 mg PO DAILY
sulfasalazine 500 MG tablet
500 mg PO BID
torsemide 20 mg Tablet
40 mg PO BID@0800,1600 Qty: 0 0RF
potassium chloride 20 mEq Tablet,Er Particles/Crystals
20 meq PO DAILY Qty: 0 0RF
Eliquis 2.5 mg Tablet
2.5 mg PO BID Qty: 0 0RF
hydrocodone-acetaminophen 5-325 mg tablet
1 tab PO BID Qty: 6 0RF
sennosides [senna] 8.6 mg Tablet
8.6 mg PO HS
amiodarone 200 mg tablet
200 mg PO BID Qty: 45 0RF
Rx Instructions:
BID for 2 weeks and then once a day
aspirin 81 mg Tablet,Delayed Release (Dr/Ec)
81 mg PO DAILY@1600
metoprolol succinate 25 mg tablet extended release 24 hr
25 mg PO HS
metoprolol succinate 50 mg tablet extended release 24 hr
50 mg PO DAILY
Rx Instructions:
dose increased on this admission
Referrals:
Santana Crain DO [Family Provider] - Follow up in 2-3 days
Activity Restrictions/Additional Instructions:
Thank you for visiting the Emergency Department at [facility].
1. Please schedule a follow up appointment as directed. Call first thing tomorrow morning to make an appointment.
2. If indicated, please take your medications as instructed and indicated on discharge paperwork.
3. If any of your symptoms do not improve, or persist, or become more severe within 6-12 hours, please return to the emergency department for further care.
4. Please return to the emergency department if you develop a headache, neck pain/stiffness, fever greater than 100.4F, chest pain, shortness of breath, persistent nausea, vomiting, slurred speech, difficulty walking, numbness/tingling, weakness,
signs of infection or any other symptoms that are worrisome to you.
Please call [phone] if you have any questions.
Interventions
Interventions:
*Risk Screen - Suicide Last Done: 01/17/24 02:17
*General Assessment Last Done: 01/17/24 02:17
*Neglect/Abuse Screening Last Done: 01/17/24 02:17
ED- Fall Risk Assessment Last Done: 01/17/24 02:49
*ED COVID-19 Vaccine History Last Done: 01/17/24 02:17
*Nursing Disposition Last Done: 01/17/24 05:23
ED-Musculoskeletal Assessment Last Done: 01/17/24 02:49
ED- Neurological Assessment Last Done: 01/17/24 02:49
ED-Skin Assessment Last Done: 01/17/24 02:49
Discharge Date and Time
Discharge Date/Time: 01/17/24 05:23
Print Language: CAMBODIAN
== END 2024-01-17 05:23 | disposition home or self-care (01) ==
LOC: EMR 02:15
PROVIDERS: EMERGENCY PHYSICIAN Emergency Medicine; FAMILY PHYSICIAN Family Medicine
DX: S01.81XA Laceration without foreign body of other part of head, initial encounter (principal); W06.XXXA Fall from bed, initial encounter; N39.0 Urinary tract infection, site not specified; I11.0 Hypertensive heart disease with heart failure; I50.9 Heart failure, unspecified; I48.91 Unspecified atrial fibrillation; Z79.01 Long term (current) use of anticoagulants
CPT/HCPCS: 99285; 12011; 70450; 72125; 80053; 81003; 81015; 83735; 83880; 85025; 87086; 87088; 87186; 93005

== ENCOUNTER → 2024-01-21 10:35 | Outpatient (REF) | payer MEDICARE, BC, SELFPAY ==
[2024-01-21 12:32] LABS: NT-proBNP 4130 pg/ml
[2024-01-21 12:41] LABS: Blood Urea Nitrogen 14 mg/dl (7-17); Calcium 9.4 mg/dl (8.4-10.2); Carbon Dioxide 30 mmol/L (22-30); Chloride 99 mmol/L (98-107); Glucose 100 mg/dl (70-99); Potassium 4.1 mmol/L (3.5-5.1); Sodium 136 mmol/L (135-145); eGFR > 60.00
== END ==
LOC: OLABSOL 10:35
PROVIDERS: ATTENDING PHYSICIAN Internal Medicine Cardiovascular Disease
DX: I50.32 Chronic diastolic (congestive) heart failure (principal)
CPT/HCPCS: 36415; 80048; 83880

== ENCOUNTER → 2024-01-25 11:03 | Outpatient (REF) | payer MEDICARE, BC, SELFPAY | LOC: WOUND 11:03 | PROVIDERS: ATTENDING PHYSICIAN Surgery; FAMILY PHYSICIAN Family Medicine | DX: L97.212 Non-pressure chronic ulcer of right calf with fat layer exposed (principal); L97.221 Non-pressure chronic ulcer of left calf limited to breakdown of skin; S51.012S Laceration without foreign body of left elbow, sequela; I87.2 Venous insufficiency (chronic) (peripheral); I25.10 Atherosclerotic heart disease of native coronary artery without angina pectoris; E55.9 Vitamin D deficiency, unspecified; Z79.52 Long term (current) use of systemic steroids | CPT/HCPCS: 99213 ==

== ENCOUNTER 2024-02-01 17:48 | Emergency (ER) | payer MEDICARE, BC, SELFPAY ==
[2024-02-01 17:50] VITALS: BP 140/79
--- NOTE | 2024-02-01 18:10 | ED.GENMED ---
History of Present Illness
General
Chief Complaint: Fall
Source: patient
Exam Limitations: none
Time Seen by Provider: 02/01/24 17:56
Travel History
Have you had any contact with someone who has COVID-19?: No
Do you have any symptoms of coronavirus? Fever > 100 degrees, chills, cough, shortness of breath, sore throat, loss of taste or smell, muscle aches, or headache?: No
History of Present Illness
History of Present Illness:
See MDM
Past History
Past History
ED Past Medical History: CAD, CHF, HTN, Hypercholesterolemia, Valvular disease and Other
ED Past Surgical History: Appendectomy, Cholecystectomy and Other
Social History
Tobacco: Non-smoker
Alcohol: None
Drug: None
Personal:
Living: fpc
Employment: Retired
Family History
Family History: Other
Phy Exam
Physical Exam
Physical Exam:
See MDM
Course
Orders/Labs/Results
Orders:
Orders
02/01/24 18:09
0.9% Sodium Chloride 500 ml [Nss] 500 ml IV BOLUS
02/01/24 18:31
Complete Blood Count/With Diff Urgent
Comprehensive Metabolic Panel Urgent
Abnormal Lab Results
02/01/24
18:31
WBC 12.2 H 10^3/uL
(4.8-10.8)
Absolute Neuts (auto) 8.9 H 10^3/uL
(1.4-6.5)
Absolute Monos (auto) 1.3 H 10^3/uL
(0.1-0.6)
Lymphocytes % 14.2 L %
(20.5-51.1)
Monocytes % 10.8 H %
(1.7-9.3)
Chloride 92 L mmol/L
(98-107)
Carbon Dioxide 39 H mmol/L
(22-30)
BUN 24 H mg/dl
(7-17)
Creatinine 1.2 H mg/dL
(0.6-1.0)
Glucose 127 H mg/dl
(70-99)
AST 44 H U/L
(14-36)
02/01/24 18:31
02/01/24 18:31
Vital Signs
Initial and Last Documented VS:
Initial Vital Signs
Temp Pulse Resp BP Pulse Ox
98.3 F 81 20 140/79 99
02/01/24 17:50 02/01/24 17:50 02/01/24 17:50 02/01/24 17:50 02/01/24 17:50
Last Documented Vital Signs
Temp Pulse Resp BP Pulse Ox
98.4 F 76 20 125/77 94
02/01/24 19:05 02/01/24 19:05 02/01/24 19:05 02/01/24 19:05 02/01/24 19:05
MDM/Problems Addressed
Differential Diagnosis Includes:
HPI and MDM Narrative:
88-year-old female presenting for evaluation for skin tear to her left arm. Patient states she had another fall and she fell backwards. She denies any sort of head trauma. Patient states that the nursing staff tried to pick her up and caused a
skin tear. Patient states she would not come to the hospital for it was not for the skin tear. Patient denying headache, neck pain or hip pain., Patient seems dehydrated and has significantly dry mucous membranes. I question whether or not
patient feels thirsty. Patient is requesting apple juice. Family indicating that patient was recently placed on Zaroxolyn and has had recent weight loss. There was concern that she may be over diuresed. Will give 500 cc fluid bolus
Physical exam
General: Well appearing and non-toxic
HEENT: protecting airway. Old bruising to forehead
Neck: nontender, supple
CV: No evidence of cyanosis
Resp: No accessory muscle use
Abd: Non-distended
Extremities: Edema to both legs
Neuro: alert
Psych: Normal affect
Skin: skin tear to left forearm without bony tenderness
Problems Addressed including Acute and Chronic Conditions affecting care:
1. Skin tear
Acuity: acute
Prognosis: stable
Details: Xeroform placed over the skin tear
2. Dehydration
Acuity: acute
Prognosis: stable
Details: likely in setting over diuresis. Will give small fluid bolus
Updates
Blood work shows mild elevation of BUN and creatinine but she has been this high before. After IV fluids, she is feeling better. Discussed keeping the same regiment of her diuretics and follow-up with cardiology. She is already followed at wound
care for other wounds. Discussed have that further evaluated by wound care
Differential Diagnosis (but not limited to): Skin tear, dehydration, acute kidney injury
Testing considered: CT head but she denies head trauma
Drug therapy (if applicable): OTC meds, please see d/c instruction regarding Rx drugs
Amount and/or Complexity of Data Reviewed
Clinical info obtained from: Patient
External data reviewed: N/A
Labs I independently reviewed (but not limited to): Elevated creatinine and BUN
Radiology: N/A
Pulse Ox: not hypoxic
EKG independently reviewed: N/A
Baseball Pitcher: N/A
Critical Care: N/A
Risk of Complication:
Social Determinants of health: Good social support
Discussed with other providers: N/A
Escalation of Care includes Admit/Obs: After being observed in the Emergency Department, pt stable for discharge.
Occasional wrong word or 'sound a like' substitutions may have occurred due to the inherent limitations of voice recognition software. Read the chart carefully and recognize, using context, where substitutions have occurred.
*Critical Care Note
Total Time (30-74mins, 75-104mins- exclusive of procedures): Not Applicable
ED Attending Note
-
Portions of this chart may have been created with voice recognition software.� Occasional wrong word or��sound alike� substitutions may have occurred due to the inherent limitations of voice recognition software.
Discharge Plan
Departure
Patient Disposition: Home (Routine Discharge)
Date of Disposition: 02/01/24
Time of Disposition: 19:21
Patient with high blood pressure during this ER visit?: No
Discharge Problem:
Acute dehydration, Skin tear
Prescriptions:
No Action
folic acid 1 MG tablet
1 mg PO DAILY
atorvastatin 40 MG tablet
40 mg PO HS
prednisone 5 MG tablet
5 mg PO DAILY@1600
duloxetine 60 MG capsule,delayed release(DR/EC)
60 mg PO DAILY
esomeprazole magnesium [Nexium] 40 mg Capsule,Delayed Release(Dr/Ec)
40 mg PO DAILY
psyllium Packet
1 packet PO HS Qty: 0
PreserVision AREDS-2 250-90-40-1 mg Capsule
1 cap PO BID
Movantik 12.5 mg Tablet
12.5 mg PO DAILY
sulfasalazine 500 MG tablet
500 mg PO BID
torsemide 20 mg Tablet
40 mg PO BID@0800,1600 Qty: 0 0RF
potassium chloride 20 mEq Tablet,Er Particles/Crystals
20 meq PO DAILY Qty: 0 0RF
Eliquis 2.5 mg Tablet
2.5 mg PO BID Qty: 0 0RF
hydrocodone-acetaminophen 5-325 mg tablet
1 tab PO BID Qty: 6 0RF
sennosides [senna] 8.6 mg Tablet
8.6 mg PO HS
amiodarone 200 mg tablet
200 mg PO BID Qty: 45 0RF
Rx Instructions:
BID for 2 weeks and then once a day
aspirin 81 mg Tablet,Delayed Release (Dr/Ec)
81 mg PO DAILY@1600
metoprolol succinate 25 mg tablet extended release 24 hr
25 mg PO HS
metoprolol succinate 50 mg tablet extended release 24 hr
50 mg PO DAILY
Rx Instructions:
dose increased on this admission
cefdinir 300 mg capsule
300 mg PO BID 7 Days Qty: 14 0RF
Referrals:
UNKNOWN - PT DOES,NOT KNOW [Family Provider] -
Activity Restrictions/Additional Instructions:
Please return for any worsening symptoms.
You may return at any time if you have further concerns.
Please follow up with your doctor at the first available appointment, preferably this week.
Thank you for choosing [facility].
Interventions
Interventions:
*Risk Screen - Suicide Last Done: 02/01/24 17:50
*General Assessment Last Done: 02/01/24 19:05
*Neglect/Abuse Screening Last Done: 02/01/24 17:50
ED- Fall Risk Assessment Last Done: 02/01/24 19:05
ED-Musculoskeletal Assessment Last Done: 02/01/24 19:05
ED- Neurological Assessment Last Done: 02/01/24 19:05
ED-Skin Assessment Last Done: 02/01/24 19:05
Discharge Date and Time
Print Language: MACANESE
[2024-02-01] MEDS: NSS 500 IV (18:32)
[2024-02-01 18:44] LABS: % Basophils 0.5 % (0-2); % Immature Granulocytes 0.2 % (0-0.5); % Lymphocytes 14.2 % (20.5-51.1); % Monocytes 10.8 % (1.7-9.3); % Neutrophils 73.3 % (42.2-75.2); Absolute Basophils 0.1 10^3/uL (0-0.2); Absolute Eosinophils 0.1 10^3/uL (0-0.7); Absolute Lymphocytes 1.7 10^3/uL (1.2-3.4); Absolute Monocytes 1.3 10^3/uL (0.1-0.6); Absolute Neutrophils 8.9 10^3/uL (1.4-6.5); Hematocrit 44.5 % (37.0-47.0); Hemoglobin 14.8 g/dL (12.0-16.0); Mean Corp Hgb Conc. 33.3 g/dL (33.0-37.0); Mean Corpuscular Hgb 29.8 pg (27.0-31.0); Mean Corpuscular Volume 89.5 fL (81.0-99.0); Nucleated Red Blood Cells % 0 %; Platelet Count 322 10^3/uL (130-400); Red Blood Cell Count 4.97 10^6/uL (4.20-5.40); Red Cell Dist. Width 14.4 % (11.5-14.5); White Blood Cell Count 12.2 10^3/uL (4.8-10.8)
[2024-02-01 19:03] LABS: ALT (SGPT) 24 U/L (0-35); AST (SGOT) 44 U/L (14-36); Albumin 4.1 g/dl (3.5-5.0); Alkaline Phosphatase 99 U/L (38-126); Blood Urea Nitrogen 24 mg/dl (7-17); Calcium 9.7 mg/dl (8.4-10.2); Carbon Dioxide 39 mmol/L (22-30); Chloride 92 mmol/L (98-107); Glucose 127 mg/dl (70-99); Potassium 3.7 mmol/L (3.5-5.1); Sodium 136 mmol/L (135-145); Total Bilirubin 0.8 mg/dl (0.2-1.3); Total Protein 6.9 g/dl (6.3-8.2); eGFR 43.54
[2024-02-01 19:05] VITALS: BP 125/77
== END 2024-02-01 19:59 | disposition home or self-care (01) ==
LOC: EMR 17:48
PROVIDERS: EMERGENCY PHYSICIAN Student in an Organized Health Care Education/Training Program; FAMILY PHYSICIAN Family Medicine
DX: E86.0 Dehydration (principal); S51.812A Laceration without foreign body of left forearm, initial encounter; W19.XXXA Unspecified fall, initial encounter; I25.10 Atherosclerotic heart disease of native coronary artery without angina pectoris; I11.0 Hypertensive heart disease with heart failure; I50.9 Heart failure, unspecified; E78.00 Pure hypercholesterolemia, unspecified; I38 Endocarditis, valve unspecified
CPT/HCPCS: 99283; 96360; 80053; 85025

== ENCOUNTER → 2024-02-02 10:23 | Outpatient (REF) | payer MEDICARE, BC, SELFPAY ==
[2024-02-02 12:07] LABS: Blood Urea Nitrogen 21 mg/dl (7-17); Calcium 8.9 mg/dl (8.4-10.2); Carbon Dioxide 36 mmol/L (22-30); Chloride 95 mmol/L (98-107); Glucose 95 mg/dl (70-99); Potassium 3.5 mmol/L (3.5-5.1); Sodium 140 mmol/L (135-145); eGFR 43.27
[2024-02-02 12:10] LABS: NT-proBNP 3950 pg/ml
== END ==
LOC: OLABSOL 10:23
PROVIDERS: ATTENDING PHYSICIAN Nurse Practitioner Gerontology
DX: R79.89 Other specified abnormal findings of blood chemistry (principal); I10 Essential (primary) hypertension; I25.10 Atherosclerotic heart disease of native coronary artery without angina pectoris
CPT/HCPCS: 36415; 80048; 83880

== ENCOUNTER → 2024-02-03 11:27 | Outpatient (REF) | payer MEDICARE, BC, SELFPAY | LOC: WOUND 11:27 | PROVIDERS: ATTENDING PHYSICIAN Surgery; FAMILY PHYSICIAN Family Medicine | DX: L97.212 Non-pressure chronic ulcer of right calf with fat layer exposed (principal); L97.221 Non-pressure chronic ulcer of left calf limited to breakdown of skin; S51.012A Laceration without foreign body of left elbow, initial encounter; I87.2 Venous insufficiency (chronic) (peripheral); I25.10 Atherosclerotic heart disease of native coronary artery without angina pectoris; E55.9 Vitamin D deficiency, unspecified; Z79.52 Long term (current) use of systemic steroids | CPT/HCPCS: 99212 ==

== ENCOUNTER → 2024-02-08 10:26 | Outpatient (REF) | payer MEDICARE, BC, SELFPAY | LOC: WOUND 10:26 | PROVIDERS: ATTENDING PHYSICIAN Surgery | DX: L97.212 Non-pressure chronic ulcer of right calf with fat layer exposed (principal); L97.221 Non-pressure chronic ulcer of left calf limited to breakdown of skin; S51.012A Laceration without foreign body of left elbow, initial encounter; L97.412 Non-pressure chronic ulcer of right heel and midfoot with fat layer exposed; I87.2 Venous insufficiency (chronic) (peripheral); I25.10 Atherosclerotic heart disease of native coronary artery without angina pectoris; E55.9 Vitamin D deficiency, unspecified; X58.XXXA Exposure to other specified factors, initial encounter | CPT/HCPCS: 11042; 99213 ==

== ENCOUNTER → 2024-02-22 11:27 | Outpatient (REF) | payer MEDICARE, BC, SELFPAY | LOC: WOUND 11:27 | PROVIDERS: ATTENDING PHYSICIAN Surgery; FAMILY PHYSICIAN Family Medicine | DX: L97.212 Non-pressure chronic ulcer of right calf with fat layer exposed (principal); L97.221 Non-pressure chronic ulcer of left calf limited to breakdown of skin; S51.012A Laceration without foreign body of left elbow, initial encounter; L97.412 Non-pressure chronic ulcer of right heel and midfoot with fat layer exposed; I87.2 Venous insufficiency (chronic) (peripheral) | CPT/HCPCS: 11042 ==

== ENCOUNTER → 2024-03-16 11:29 | Outpatient (REF) | payer MEDICARE, BC, SELFPAY | LOC: WOUND 11:29 | PROVIDERS: ATTENDING PHYSICIAN Surgery; FAMILY PHYSICIAN Family Medicine | DX: L97.212 Non-pressure chronic ulcer of right calf with fat layer exposed (principal); L97.221 Non-pressure chronic ulcer of left calf limited to breakdown of skin; S51.012A Laceration without foreign body of left elbow, initial encounter; L97.412 Non-pressure chronic ulcer of right heel and midfoot with fat layer exposed; I87.2 Venous insufficiency (chronic) (peripheral); W19.XXXA Unspecified fall, initial encounter | CPT/HCPCS: 11042 ==

== ENCOUNTER → 2024-03-20 17:24 | Outpatient (REF) | payer MEDICARE, BC, SELFPAY ==
[2024-03-20 18:36] LABS: Urine Albumin Negative (Neg - Trace); Urine Bilirubin Negative (Negative); Urine Character Clear (Clear); Urine Color Yellow; Urine Glucose Negative (Negative); Urine Ketone Negative (Negative); Urine Leukocyte Trace (Negative); Urine Nitrite Negative (Negative); Urine Occult Blood Negative (Negative); Urine Urobilinogen Negative (Neg - 1+)
[2024-03-20 19:22] LABS: Urine Bacteria Moderate (Negative); Urine Red Blood Cell 0-2 /HPF (0-2); Urine White Cell >100 /HPF (0-5)
== END ==
LOC: REG 17:24
PROVIDERS: ATTENDING PHYSICIAN Nurse Practitioner Gerontology
DX: R35.0 Frequency of micturition (principal)
CPT/HCPCS: 81003; 81015; 87077; 87086

== ENCOUNTER → 2024-03-29 09:25 | Outpatient (REF) | payer MEDICARE, BC, SELFPAY ==
[2024-03-29 10:49] LABS: NT-proBNP 2610 pg/ml
[2024-03-29 10:55] LABS: Blood Urea Nitrogen 20 mg/dl (7-17); Carbon Dioxide 28 mmol/L (22-30); Chloride 100 mmol/L (98-107); Glucose 88 mg/dl (70-99); Magnesium 2.1 mg/dl (1.6-2.3); Potassium 4.3 mmol/L (3.5-5.1); Sodium 136 mmol/L (135-145); eGFR > 60.00
== END ==
LOC: OLABSOL 09:25
PROVIDERS: ATTENDING PHYSICIAN Internal Medicine Cardiovascular Disease
DX: I50.32 Chronic diastolic (congestive) heart failure (principal)
CPT/HCPCS: 36415; 80048; 83735; 83880

== ENCOUNTER → 2024-04-07 10:27 | Outpatient (REF) | payer MEDICARE, BC, SELFPAY | LOC: WOUND 10:27 | PROVIDERS: ATTENDING PHYSICIAN Surgery; FAMILY PHYSICIAN Family Medicine | DX: L97.212 Non-pressure chronic ulcer of right calf with fat layer exposed (principal); L97.221 Non-pressure chronic ulcer of left calf limited to breakdown of skin; S51.012A Laceration without foreign body of left elbow, initial encounter; L97.412 Non-pressure chronic ulcer of right heel and midfoot with fat layer exposed; I87.2 Venous insufficiency (chronic) (peripheral); I25.10 Atherosclerotic heart disease of native coronary artery without angina pectoris; E55.9 Vitamin D deficiency, unspecified; Z79.52 Long term (current) use of systemic steroids; W19.XXXA Unspecified fall, initial encounter | CPT/HCPCS: 97597 ==

== ENCOUNTER → 2024-04-25 11:25 | Outpatient (REF) | payer MEDICARE, BC, SELFPAY | LOC: WOUND 11:25 | PROVIDERS: ATTENDING PHYSICIAN Surgery; FAMILY PHYSICIAN Family Medicine | DX: L97.212 Non-pressure chronic ulcer of right calf with fat layer exposed (principal); L97.221 Non-pressure chronic ulcer of left calf limited to breakdown of skin; L97.412 Non-pressure chronic ulcer of right heel and midfoot with fat layer exposed; I87.2 Venous insufficiency (chronic) (peripheral); Z79.52 Long term (current) use of systemic steroids; I25.10 Atherosclerotic heart disease of native coronary artery without angina pectoris; E55.9 Vitamin D deficiency, unspecified; S51.012A Laceration without foreign body of left elbow, initial encounter; W19.XXXA Unspecified fall, initial encounter | CPT/HCPCS: 99212 ==

== ENCOUNTER → 2024-05-03 09:35 | Outpatient (REF) | payer MEDICARE, BC, SELFPAY ==
[2024-05-03 11:27] LABS: % Basophils 0.5 % (0-2); % Eosinophils 0.6 % (0-6); % Immature Granulocytes 0.4 % (0-0.5); % Lymphocytes 16.4 % (20.5-51.1); % Monocytes 9.5 % (1.7-9.3); % Neutrophils 72.6 % (42.2-75.2); Absolute Basophils 0.1 10^3/uL (0-0.2); Absolute Eosinophils 0.1 10^3/uL (0-0.7); Absolute Lymphocytes 1.7 10^3/uL (1.2-3.4); Absolute Neutrophils 7.3 10^3/uL (1.4-6.5); Hematocrit 39.1 % (37.0-47.0); Hemoglobin 12.8 g/dL (12.0-16.0); Mean Corp Hgb Conc. 32.7 g/dL (33.0-37.0); Mean Corpuscular Hgb 30.3 pg (27.0-31.0); Mean Corpuscular Volume 92.4 fL (81.0-99.0); Mean Platelet Volume 11.4 fL (7.4-10.4); Nucleated Red Blood Cells % 0 %; Platelet Count 283 10^3/uL (130-400); Red Blood Cell Count 4.23 10^6/uL (4.20-5.40); White Blood Cell Count 10.1 10^3/uL (4.8-10.8)
[2024-05-03 11:40] LABS: ALT (SGPT) 18 U/L (0-35); AST (SGOT) 28 U/L (14-36); Albumin 3.8 g/dl (3.5-5.0); Alkaline Phosphatase 47 U/L (38-126); Blood Urea Nitrogen 17 mg/dl (7-17); Calcium 9.5 mg/dl (8.4-10.2); Carbon Dioxide 30 mmol/L (22-30); Chloride 100 mmol/L (98-107); Glucose 86 mg/dl (70-99); Potassium 4.4 mmol/L (3.5-5.1); Sodium 142 mmol/L (135-145); Total Bilirubin 0.3 mg/dl (0.2-1.3); Total Protein 6.1 g/dl (6.3-8.2); eGFR 53.85
[2024-05-03 11:45] LABS: NT-proBNP 3250 pg/ml
[2024-05-03 12:07] LABS: TSH 1.15 uIU/ml (0.47-4.68)
== END ==
LOC: OLABSOL 09:35
PROVIDERS: ATTENDING PHYSICIAN Internal Medicine Cardiovascular Disease
DX: I48.0 Paroxysmal atrial fibrillation (principal); I10 Essential (primary) hypertension; I50.32 Chronic diastolic (congestive) heart failure; E78.5 Hyperlipidemia, unspecified; K51.90 Ulcerative colitis, unspecified, without complications
CPT/HCPCS: 36415; 80053; 82306; 83880; 84443; 85025

== ENCOUNTER 2024-05-15 16:09 | Emergency (ER) | payer MEDICARE, BC, SELFPAY ==
[2024-05-15 16:10] VITALS: BMI 26.3
[2024-05-15 16:16] VITALS: BP 112/70
--- NOTE | 2024-05-15 16:46 | ED.GENMED ---
History of Present Illness
General
Chief Complaint: Urinary Symptoms
Time Seen by Provider: 05/15/24 16:46
History of Present Illness
History of Present Illness:
HPI: I spoke to patient's son-in-law (physician) who indicates the patient had a fall recently and was treated at [facility]. She is on Eliquis. She was found to have a Klebsiella UTI resistant to Keflex. Daughter reports no significant new
concerns and the patient reports no significant complaints. Dr. Crain's office 'sent her in for IV antibiotics'.
EXAM:
GENERAL: Appears somewhat weak and debilitated
HEAD: There is extensive older appearing ecchymosis noted to the face
C-SPINE: No midline C-spine tenderness
HEENT: Moist oral mucosa
CARDIOVASCULAR: 2/6 systolic murmur in the upper sternal borders, normal heart rate, regular rhythm, No chest wall tenderness
PULMONARY: No respiratory distress, breath sounds are clear and equal
ABDOMEN: Soft with no peritoneal signs, no tenderness
NEUROLOGIC: There strength all extremities, no coordination deficits
PSYCHIATRIC: Appropriate mental status, reasonable insight and judgement
EXTREMITIES: Nontender, mild nonpitting lower extremity edema, moves all extremities equally
SKIN: Older appearing ecchymosis to the lower extremities
TIME OF INITIAL ENCOUNTER: 5 PM
NUMBER AND COMPLEXITY OF PROBLEMS ADDRESSED AT THE ENCOUNTER
� Chronic conditions affecting care: A-fib, CHF, CAD, high blood pressure, hyperlipidemia
� Acute Exacerbation and/or Progression of Chronic Illness: This is an acute problem
� Differential Diagnosis includes: UTI, dehydration, weakness, MARIANA
AMOUNT AND/OR COMPLEXITY OF DATA TO BE REVIEWED AND ANALYZED
� I performed an independent evaluation of and my interpretation is:
EKG:
CT:
X-rays:
Laboratory Studies: White count 10.3, chemistries relatively unremarkable
Other:
� Review of other/old records: I reviewed the the blood work from [facility] the other day that showed a white count of 9+, urinalysis shows 1+ leukocyte esterase
� Clinical information was obtained by an independent historian: I spoke to the daughter at bedside
� Prescriptions/Medications Considered but not given:
� Further testing considered but not performed:
RISK OF COMPLICATIONS AND/OR MORBIDITY OR MORTALITY OF PATIENT MANAGEMENT
� Social determinants of health affecting care: Resides at [facility]
� Discussion with other providers: I called [facility] as we did not originally receive the fax paperwork including the urine culture. They did send us a urinalysis that showed 1+ leukocyte esterase.
� Escalation of care including admission/observation vs risk of discharge considered: I spoke to the triage nurse at [facility] he was able to look at the urine culture which indicates: 'Greater than 100,000 CFU Klebsiella.
Resistant to: Ampicillin, Azactam, cephalexin, ceftriaxone, cefuroxime, Cipro, nitrofurantoin, Bactrim, tetracycline. Sensitive to: Ertapenem, gentamicin, meropenem. I have ordered ertapenem since it does not appear that oral antibiotics could be
used and PMD sent for admission. However I spoke to Dr. Rocha who suggested speaking to ID. I spoke to Dr. Meyers who agrees to hold off on antibiotics.
Past History
Past History
ED Past Medical History: CAD, CHF, HTN, Hypercholesterolemia, Valvular disease and Other
ED Past Surgical History: Appendectomy, Cholecystectomy and Other
Social History
Tobacco: Non-smoker
Alcohol: None
Drug: None
Personal:
Living: [facility]
Employment: Retired
Family History
Family History: Other
Phy Exam
Physical Exam
Physical Exam:
See HPI
Course
Orders/Labs/Results
Orders:
Orders
05/15/24 17:22
Basic Metabolic Panel Urgent
Complete Blood Count/With Diff Urgent
05/15/24 18:23
Ertapenem [Invanz] 1,000 mg 0.9% Sodium Chloride [Nss] 50 ml IV NOW
Abnormal Lab Results
05/15/24
17:22
RBC 4.09 L 10^6/uL
(4.20-5.40)
MCH 31.3 H pg
(27.0-31.0)
RDW 14.8 H %
(11.5-14.5)
MPV 10.9 H fL
(7.4-10.4)
Absolute Neuts (auto) 7.7 H 10^3/uL
(1.4-6.5)
Absolute Monos (auto) 1.0 H 10^3/uL
(0.1-0.6)
Lymphocytes % 13.7 L %
(20.5-51.1)
Monocytes % 9.7 H %
(1.7-9.3)
Glucose 117 H mg/dl
(70-99)
05/15/24 17:22
05/15/24 17:22
Vital Signs
Initial and Last Documented VS:
Initial Vital Signs
Temp Pulse Resp BP Pulse Ox
99.0 F 60 16 112/70 98
05/15/24 16:16 05/15/24 16:16 05/15/24 16:16 05/15/24 16:16 05/15/24 16:16
Last Documented Vital Signs
Temp Pulse Resp BP Pulse Ox
99.0 F 56 14 117/61 94
05/15/24 16:16 05/15/24 17:37 05/15/24 17:37 05/15/24 19:00 05/15/24 19:00
*Critical Care Note
Total Time (30-74mins, 75-104mins- exclusive of procedures): Not Applicable
ED Attending Note
-
Portions of this chart may have been created with voice recognition software.� Occasional wrong word or��sound alike� substitutions may have occurred due to the inherent limitations of voice recognition software.
Discharge Plan
Departure
Patient Disposition: Home (Routine Discharge)
Date of Disposition: 05/15/24
Time of Disposition: 17:54
Patient with high blood pressure during this ER visit?: Yes
Discharge Problem:
Encounter for medical assessment
Prescriptions:
No Action
folic acid 1 MG tablet
1 mg PO DAILY
atorvastatin 40 MG tablet
40 mg PO HS
prednisone 5 MG tablet
5 mg PO DAILY@1600
duloxetine 60 MG capsule,delayed release(DR/EC)
60 mg PO DAILY
esomeprazole magnesium [Nexium] 40 mg Capsule,Delayed Release(Dr/Ec)
40 mg PO DAILY
psyllium Packet
1 packet PO HS Qty: 0
PreserVision AREDS-2 250-90-40-1 mg Capsule
1 cap PO BID
Movantik 12.5 mg Tablet
12.5 mg PO DAILY
sulfasalazine 500 MG tablet
500 mg PO BID
Eliquis 2.5 mg Tablet
2.5 mg PO BID Qty: 0 0RF
hydrocodone-acetaminophen 5-325 mg tablet
1 tab PO BID Qty: 6 0RF
sennosides [senna] 8.6 mg Tablet
8.6 mg PO HS
metoprolol succinate 25 mg tablet extended release 24 hr
25 mg PO HS
metoprolol succinate 50 mg tablet extended release 24 hr
50 mg PO DAILY
torsemide 20 mg Tablet
40 mg PO DAILY
cephalexin 500 mg Capsule
500 mg PO QID
Patient Comments:
05/15/24: take between 05/12/24-05/19/24.
metoprolol succinate 25 mg Tablet Extended Release 24 Hr
25 mg PO DAILYPRN PRN (Reason: if bp<90/50)
torsemide 20 mg tablet
20 mg PO DAILYPRN PRN (Reason: gain 3lbs overnight or 5lbs in week)
amiodarone 200 mg tablet
200 mg PO DAILY
potassium chloride 20 mEq tablet,ER particles/crystals
20 meq PO QPM
Referrals:
Santana Crain, DO [Family Provider] -
Activity Restrictions/Additional Instructions:
I spoke to [facility] which indicated that the urine culture did grow Klebsiella. I considered admitting you to the hospital however we ended up talking to an infectious disease specialist, Dr. Meyers who recommends against antibiotics.
Interventions
Interventions:
*Risk Screen - Suicide Last Done: 05/15/24 16:16
*Neglect/Abuse Screening Last Done: 05/15/24 16:16
ED-Female Genitourinary Assessment Last Done: 05/15/24 19:27
Discharge Date and Time
Print Language: CROATIAN
[2024-05-15 17:23] VITALS: BP 119/62
[2024-05-15 17:38] LABS: % Basophils 0.5 % (0-2); % Eosinophils 1.1 % (0-6); % Immature Granulocytes 0.4 % (0-0.5); % Lymphocytes 13.7 % (20.5-51.1); % Monocytes 9.7 % (1.7-9.3); % Neutrophils 74.6 % (42.2-75.2); Absolute Basophils 0.1 10^3/uL (0-0.2); Absolute Eosinophils 0.1 10^3/uL (0-0.7); Absolute Lymphocytes 1.4 10^3/uL (1.2-3.4); Absolute Neutrophils 7.7 10^3/uL (1.4-6.5); Hematocrit 38.7 % (37.0-47.0); Hemoglobin 12.8 g/dL (12.0-16.0); Mean Corp Hgb Conc. 33.1 g/dL (33.0-37.0); Mean Corpuscular Hgb 31.3 pg (27.0-31.0); Mean Corpuscular Volume 94.6 fL (81.0-99.0); Mean Platelet Volume 10.9 fL (7.4-10.4); Nucleated Red Blood Cells % 0 %; Platelet Count 269 10^3/uL (130-400); Red Blood Cell Count 4.09 10^6/uL (4.20-5.40); Red Cell Dist. Width 14.8 % (11.5-14.5); White Blood Cell Count 10.3 10^3/uL (4.8-10.8)
[2024-05-15 18:00] VITALS: BP 130/73
[2024-05-15 18:19] LABS: Blood Urea Nitrogen 16 mg/dl (7-17); Calcium 9.2 mg/dl (8.4-10.2); Carbon Dioxide 29 mmol/L (22-30); Chloride 99 mmol/L (98-107); Estimated Creatinine Clearance 26 ml/min; Glucose 117 mg/dl (70-99); Sodium 137 mmol/L (135-145); eGFR > 60.00
[2024-05-15 19:00] VITALS: BP 117/61
--- NOTE | 2024-05-15 19:19 | CON.HOSP ---
Addendum entered and electronically signed by Colby Rocha DO 05/15/24 19:56:
Patient seen/examined and discussed with KIM Judd, and I agree with her note.
Gen-Awake, alert, NAD
HEENT-bilateral facial bruising, anicteric, clear MM
Neck-supple
CV-reg, no M
Lungs-clear
Abd-soft, NT, ND
Ext-no edema
Neuro-nonfocal grossly
No evidence of UTI - this is colonization based upon lack of UTI symptoms, no fever, no leukocytosis. Would not treat with antibiotics.
Would not admit. Discussed with daughter in detail.
Ok for discharge.
Original Note:
Consultation
-
Date/Time Consultation Requested: May 15 at 6:00pm
Date/Time Consultation Performed: May 15 at 6:30PM
Requesting Provider: Dr. Shawn Gross
Performing Provider: Anabella Judd PA-C / Dr. Colby Rocha
Reason for Consultation: Positive Urine Culture
Family Physician
-
Family Physician: Santana Crain
Chief Complaint
-
Positive Urine Culture
History of Present Illness
Patient is an 89 y/o female past medical history of CAD, CHF, and A-fib who was sent by her PCP for urine culture obtained at [place] that revealed ESBL Klebsiella. According to daughter at the bedside patient fell asleep while sitting on the edge
of her bed. She fell forward hitting her face. As she is on Eliquis she was sent to [place] for a trauma evaluation. Following the fall, patient was calling out for her mother which she only every done when she has a urinary tract infection.
Urinalysis was obtained which was positive and she was started on cephalexin. Today they received a call that the urine culture showed a resist organism and she was sent to the emergency department for IV antibiotics. Patient is a poor historian.
There are no reports of urinary symptoms.
Medical History
Past Medical History
Past Medical History: Reports Other
Additional Past Medical History:
Coronary Artery Disease s/p CABG
Chronic HFpEF
Paroxysmal Atrial Fibrillation
Essential Hypertension
Hyperlipidemia
Aortic Stenosis s/p Bioprosthetic Aortic Valve Replacement
Osteoporosis
Ulcerative Colitis
Chronic Constipation
Spinal Stenosis
Cognitive Impairment
Hx PE in 2017, provoked following AVR
Past Surgical History: Reports Other
Additional Past Surgical History:
Coronary Artery Bypass Graft
Bioprosthetic Aortic Valve Replacement
Appendectomy
Cholecystectomy
Colon Resection
Social History
Tobacco: Non-smoker
Alcohol: None
Living: Assisted Living
Family History
Family History: Reviewed & Not Pertinent
Allergies / Home Medications
Allergies reflects when Allergies were last updated in [employer].
Home Medications with original date entered in [employer]
Allergy/Medication List:
Allergies
Allergy/AdvReac Type Severity Reaction Status Date / Time
adhesive tape Allergy Unknown Verified 05/15/24 16:20
Home Medications
folic acid 1 mg tablet 1 mg PO DAILY Supplement 11/26/16
atorvastatin 40 mg tablet 40 mg PO HS High cholesterol 12/09/16
duloxetine 60 mg capsule,delayed release 60 mg PO DAILY Mental Health/Anxiety 12/09/16
prednisone 5 mg tablet 5 mg PO DAILY@1600 inflammation 12/09/16
esomeprazole magnesium 40 mg capsule,delayed release (Nexium) 40 mg PO DAILY Gastrointestinal issue 06/22/22
naloxegol 12.5 mg tablet (Movantik) 12.5 mg PO DAILY opioid induced constipation 10/30/23
psyllium 1 packet PO HS Constipation ##0 10/30/23
sulfasalazine 500 mg tablet 500 mg PO BID Gastrointestinal issue 10/30/23
vit C 250 mg-vit E 90 mg-zinc 40 mg-copper 1 [id number] capsule (PreserVision AREDS-2) 1 cap PO BID Supplement 10/30/23
apixaban 2.5 mg tablet (Eliquis) 2.5 mg PO BID #0 tabs 11/30/23
hydrocodone 5 mg-acetaminophen 325 mg tablet 1 tab PO BID Pain #6 tabs 11/30/23
sennosides 8.6 mg tablet (senna) 8.6 mg PO HS 01/11/24
metoprolol succinate 25 mg tablet,extended release 24 hr 25 mg PO HS 01/15/24
metoprolol succinate 50 mg tablet,extended release 24 hr 50 mg PO DAILY 01/15/24
amiodarone 200 mg tablet 200 mg PO DAILY 05/15/24
cephalexin 500 mg capsule 500 mg PO QID 05/15/24
metoprolol succinate 25 mg tablet,extended release 24 hr 25 mg PO DAILYPRN PRN if bp<90/50 05/15/24
potassium chloride 20 mEq tablet,extended release(part/cryst) 20 meq PO QPM 05/15/24
torsemide 20 mg tablet 20 mg PO DAILYPRN PRN gain 3lbs overnight or 5lbs in week 05/15/24
torsemide 20 mg tablet 40 mg PO DAILY 05/15/24
Review of Systems
-
A 12 point Review of Systems was completed except as noted: Yes
Constitutional: Denies Fever
Respiratory: Denies Cough or Trouble Breathing
Cardiac: Denies Chest Pain or Palpitations
Abdomen/GI: Denies Abdominal Pain, Nausea or Vomiting
Physical Exam
Vital Signs
Vital Signs
Temp Pulse Resp BP Pulse Ox
99.0 F 56 14 119/62 95
05/15/24 16:16 05/15/24 17:37 05/15/24 17:37 05/15/24 17:23 05/15/24 17:37
Physical Exam
General: No Apparent Distress and Comfortable
HEENT: Anicteric, Moist Mucous Membranes and Other (Ecchymosis across forehead, nose, eyes and cheek from recent fall)
Respiratory: Clear and Non Labored Respirations
Cardiac: S1/S2, Regular Rhythm and Murmur (3/6 Systolic Murmur)
GI: Soft and Non Tender
Rectal: Deferred by Provider
Musculoskeletal: No Clubbing and No Cyanosis
Skin: Warm and Dry
Neuro: Awake, Alert and Nonfocal/Grossly Intact
Laboratory Results
-
Laboratory Results
05/15/24 17:22
05/15/24 17:22
Total Bilirubin Cancelled 05/15/24 17:22
AST Cancelled 05/15/24 17:22
ALT Cancelled 05/15/24 17:22
Alkaline Phosphatase Cancelled 05/15/24 17:22
Data Reviewed
-
Lab Data: Labs Reviewed
Impression / Plan
-
Urine Culture with ESBL Klebsiella
-Reviewed prior urine culture from Mar 2024 which also showed ESBL Klebsiella
-Given lack of urinary symptoms suspect this is likely colonization
-Reviewed with Infectious Disease who agrees most likely colonization and suggests holding on antibiotics
-Reviewed with family at bedside who are in agreement with discharge back to her assisted living facility
-Reviewed with ED who will make arrangements for discharge
== END 2024-05-15 20:11 | disposition home or self-care (01) ==
LOC: EMR 16:09
PROVIDERS: Emergency Medicine; EMERGENCY PHYSICIAN Emergency Medicine; FAMILY PHYSICIAN Family Medicine
DX: Z76.89 Persons encountering health services in other specified circumstances (principal); I48.91 Unspecified atrial fibrillation; E78.00 Pure hypercholesterolemia, unspecified; I11.0 Hypertensive heart disease with heart failure; I25.10 Atherosclerotic heart disease of native coronary artery without angina pectoris; I50.32 Chronic diastolic (congestive) heart failure; Z79.01 Long term (current) use of anticoagulants; Z79.52 Long term (current) use of systemic steroids; Z86.711 Personal history of pulmonary embolism; Z87.440 Personal history of urinary (tract) infections; Z90.49 Acquired absence of other specified parts of digestive tract; Z95.1 Presence of aortocoronary bypass graft
CPT/HCPCS: 99283; 80048; 85025; J1335

== ENCOUNTER → 2024-07-12 09:38 | Outpatient (REF) | payer MEDICARE, BC, SELFPAY ==
[2024-07-12 11:41] LABS: Blood Urea Nitrogen 14 mg/dl (7-17); Calcium 9.2 mg/dl (8.4-10.2); Carbon Dioxide 34 mmol/L (22-30); Chloride 98 mmol/L (98-107); Glucose 88 mg/dl (70-99); Potassium 4.5 mmol/L (3.5-5.1); Sodium 139 mmol/L (135-145); eGFR 53.85
[2024-07-12 11:44] LABS: NT-proBNP 2830 pg/ml
== END ==
LOC: OLABSOL 09:38
PROVIDERS: ATTENDING PHYSICIAN Internal Medicine Cardiovascular Disease
DX: I50.32 Chronic diastolic (congestive) heart failure (principal)
CPT/HCPCS: 36415; 80048; 83735; 83880